=== PATIENT | male | born 1975 | race Caucasian/White ===

== ENCOUNTER → 2016-11-03 | Outpatient (CLI) | payer OTHER ==
[~2016-11-03] MED LIST: ASPI-390 PO; MELO7.5T5 PO; MORP30TA PO; RANI150T3 PO; SIMV40TA4 PO; [UNRECOGNIZED DRUG - CODE] PO
[2016-11-03 12:31] LABS: ESTIMATED AVERAGE GLUCOSE 123 mg/dl; HA1C FLAG Normal (Normal)
[2016-11-03 12:55] LABS: C-REACTIVE PROTEIN 0.41 mg/dl (0-0.29)
[2016-11-03 15:09] LABS: LYME DISEASE AB IGG NEG (NEG)
[2016-11-03 15:12] LABS: LYME DISEASE AB IGM EQUIVOCAL (NEG)
[2016-11-07 14:22] LABS: 18KDIGG BAND NONREACTIVE (NONREACTIVE); 23KDIGG BAND NONREACTIVE (NONREACTIVE); 23KDIGM BAND REACTIVE (NONREACTIVE); 28KDIGG BAND NONREACTIVE (NONREACTIVE); 30KDIGG BAND NONREACTIVE (NONREACTIVE); 39KDIGG BAND NONREACTIVE (NONREACTIVE); 39KDIGM BAND NONREACTIVE (NONREACTIVE); 41KDIGG BAND REACTIVE (NONREACTIVE); 41KDIGM BAND NONREACTIVE (NONREACTIVE); 45KDIGG BAND NONREACTIVE (NONREACTIVE); 58KDIGG BAND NONREACTIVE (NONREACTIVE); 66KDIGG BAND NONREACTIVE (NONREACTIVE); 93KDIGG BAND NONREACTIVE (NONREACTIVE)
[2016-11-07 15:31] LABS: ALBUMIN 4.5 G/DL (3.8-4.8); ANTI-CENTROMERE AB <1.0 NEG AI (<1.0 NEG); ANTI-SS-A <1.0 NEG AI (<1.0 NEG); ANTI-SS-B <1.0 NEG AI (<1.0 NEG); DNA ds CRITHIDIA NEGATIVE (NEGATIVE); GAMMA GLOBULIN 1.1 G/DL (0.8-1.7); MICROSOMAL AB 2 IU/ML (<9); Sm Antibody <1.0 NEG AI (<1.0 NEG); TOTAL PROTEIN 7.3 G/DL (6.2-8.3); VIT B1 PLASMA(THIAMIN)**90353 12 nmol/L (8-30); VITAMIN B6** TC 926 11.2 ng/mL (2.1-21.7)
== END | disposition home or self-care (01) ==
LOC: C.LAB 11:34
PROVIDERS: ATTEND Psychiatry & Neurology Neurology
DX: G62.9 Polyneuropathy, unspecified (principal)

== ENCOUNTER 2019-11-09 21:27 | Inpatient (IN) ==
[2019-11-09] MEDS ORDERED: HYDROmorphone INJ 1 MG/ML SYRINGE IV STA ×3 (21:43→23:29)
[2019-11-09] MEDS ORDERED: ONDANSETRON INJ 2 MG/ML 2 ML VIAL IV STA (21:43)
--- NOTE | 2019-11-09 21:47 | Emergency Department Note ---
History of Present Illness General Chief complaint: Neck Injury/Pain Stated complaint: NECK PAIN Time Seen by Provider: 11/09/19 21:35 History of Present Illness Maximum Pain Intensity: 10 This is a 44-year-old male that presents to the emergency department via private vehicle with complaints of "neck pain". Patient states he has been experiencing greater than 1 week now of left-sided neck pain that radiates down the left arm. He describes it as a burning sensation. He believes this is nerve in nature. He has been seen by the chiropractor several times and also here in the ED x1 and was informed this is likely cervical radiculopathy secondary to a bulging disc. Patient notes that since he was evaluated here he notes an increase in discomfort. He was seen by the PCP recently and started on Valium. He has not returned to work as of yet. He denies any other pertinent past medical history, surgeries or allergies. He states that if he extends the neck to a neutral position the pain is much worse and is slightly better when flexed forward. No reported trauma or injury. He does note decreased strength in the left upper extremity. Discomfort is a 10/10. No chest pain or shortness of breath. No fevers or chills. Home Medications Home Medications Medication Instructions Recorded Confirmed Type gabapentin 1,200 mg PO TID 11/06/19 11/09/19 History Medical Marijuana 0 unit .UD PRN 11/09/19 11/09/19 History diazepam 2 mg PO TID PRN 11/09/19 11/09/19 History ibuprofen 1,600 mg PO .TID/UD 11/09/19 11/09/19 History simvastatin 40 mg PO QPM 11/09/19 11/09/19 History Allergies Allergy/AdvReac Type Severity Reaction Status Date / Time metoprolol Allergy Mild RASH Verified 11/09/19 22:42 propoxyphene Allergy Mild ITCHY Verified 11/09/19 22:42 acetaminophen AdvReac Mild SICK TO Verified 11/09/19 22:42 STOMACH tramadol AdvReac Unknown headache Verified 11/09/19 22:42 prednisone AdvReac Chest Pain Verified 11/09/19 22:42 Past Med/Surg History Medical History Back pain, chronic Social History Smoking Status: Current every day smoker Preferred Language: Qatari Feels Safe at Home: Yes Review of Systems A total of 10 systems reviewed and were otherwise negative Physical Exam Vital Signs Vital Signs - 24 hr 11/09/19 21:28 11/09/19 22:46 11/10/19 00:45 Temperature 36.8 C Temperature Source Oral Pulse Rate 89 Pulse Rate [Finger] 73 72 Pulse Rhythm [Finger] Regular Pulse Strength [Finger] Normal Respiratory Rate 20 18 18 Respiratory Effort / Characteristics Non-Labored Spontaneous Non-Labored Spontaneous Respiratory Depth Normal Normal Respiratory Pattern Regular Blood Pressure 169/98 H Blood Pressure [Right Arm] 146/108 H 130/88 Blood Pressure Mean 121 Blood Pressure Mean [Right Arm] 120 102 Blood Pressure Position [Right Arm] Sitting Pulse Oximetry 97 96 95 Oxygen Delivery Method Room Air Room Air Room Air Sepsis Recent Fever Within 48 Hours No Sepsis New/Unexplained Change in Mental Status No Sepsis Action Taken by Nursing No Action Required 11/10/19 02:45 Temperature Temperature Source Pulse Rate Pulse Rate [Finger] 66 Pulse Rhythm [Finger] Regular Pulse Strength [Finger] Normal Respiratory Rate 18 Respiratory Effort / Characteristics Non-Labored Spontaneous Respiratory Depth Normal Respiratory Pattern Regular Blood Pressure Blood Pressure [Right Arm] 134/92 Blood Pressure Mean Blood Pressure Mean [Right Arm] 106 Blood Pressure Position [Right Arm] Sitting Pulse Oximetry 95 Oxygen Delivery Method Room Air Sepsis Recent Fever Within 48 Hours Sepsis New/Unexplained Change in Mental Status Sepsis Action Taken by Nursing VITAL SIGNS - Vital signs and nursing notes were reviewed. Stable and afebrile. GENERAL - 44-year-old male appearing his stated age who is in no acute distress. Communicates well with provider and answers questions appropriately. SKIN - Without rashes. No meningeal or petechial rash. HEAD - NC/AT. EYES - PERRL with EOMI bilaterally. Sclera anicteric. EARS - No deformities of external structures noted on gross examination bilaterally. No pain elicited with palpation of the tragus bilaterally. External auditory canals without discharge or otorrhea. Tympanic membranes pearly robison without retraction or bulging. No fluid or purulent material visualized behind the TM. Handle of malleus, umbo, cone of light, pars tensa/flaccid all easily visualized. NOSE - Midline and without cyanosis. No epistaxis or purulent drainage noted. Septum midline without deviation or septal hematoma noted. MOUTH/OROPHARYNX - Without perioral cyanosis. Buccal mucosa pink and moist and without leukoplakia. Tongue midline with equal elevation of palate bilaterally. NECK - Neck with decreased ROM as he is currently in a flexed position, with his head resting against the bed, while sitting beside the bed in a chair. Supple to palpation. No lymphadenopathy noted. No nuchal rigidity. No muscle spasm palpable. LUNGS - Chest wall symmetric without accessory muscle use, intercostals retracti ons, or central cyanosis. Normal vesicular breath sounds CTA B/L. No wheezes, rales, or rhonchi appreciated. CARDIAC - RRR with S1/S2. No murmur, rubs, or gallops appreciated. EXTREMITIES - No clubbing or peripheral cyanosis. No pretibial edema present. 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 Left radial pulse within normal limits. No tenderness palpation along the left upper extremity +5/5 strength noted in UE/LE bilaterally. NEUROLOGIC - Cranial nerves II through XII grossly intact. Sensory intact to light touch throughout. PSYCH - A&O, and cooperates fully with examiner. Pt is very pleasant and interacts well with examiner. Course Administered Medications Discontinued Medications Dexamethasone (Dexamethasone Sod Inj 10 Mg/Ml Vial) 10 mg IV NOW ONE Stop: 11/10/19 01:09 Last Admin: 11/10/19 01:17 Dose: 10 mg Documented by: [id number] Diphenhydramine HCl (Diphenhydramine Hcl 50 Mg/Ml Vial) 25 mg IV NOW STA Stop: 11/10/19 03:27 Last Admin: 11/10/19 03:40 Dose: 25 mg Documented by: [id number] Hydromorphone HCl (Hydromorphone Inj 1 Mg/Ml Syringe) 1 mg IV NOW STA Stop: 11/09/19 21:44 Last Admin: 11/09/19 21:57 Dose: 1 mg Documented by: [id number] Hydromorphone HCl (Hydromorphone Inj 1 Mg/Ml Syringe) 1 mg IV NOW STA Stop: 11/09/19 22:43 Last Admin: 11/09/19 22:46 Dose: 1 mg Documented by: [id number] Hydromorphone HCl (Hydromorphone Inj 1 Mg/Ml Syringe) 1 mg IV NOW STA Stop: 11/09/19 23:30 Last Admin: 11/09/19 23:33 Dose: 1 mg Documented by: [id number] Hydromorphone HCl (Hydromorphone Inj 1 Mg/Ml Syringe) 1 mg IV NOW STA Stop: 11/10/19 01:09 Last Admin: 11/10/19 01:17 Dose: 1 mg Documented by: [id number] Hydromorphone HCl (Hydromorphone Inj 0.5 Mg/0.5 Ml Syr) 0.25 mg IV NOW STA Stop: 11/10/19 03:29 Last Admin: 11/10/19 03:42 Dose: 0.25 mg Documented by: [id number] Hydromorphone HCl (Hydromorphone Inj 0.5 Mg/0.5 Ml Syr) Confirm Administered Dose 0.5 mg .ROUTE .ST-MED ONE Stop: 11/10/19 03:36 Last Admin: 11/10/19 03:42 Dose: Not Given Documented by: [id number] Ioversol (Optiray 320 125ml) 119 ml IV ONCE ONE Stop: 11/09/19 23:03 Last Admin: 11/09/19 23:02 Dose: 119 ml Documented by: [id number] Ketorolac Tromethamine (Ketorolac 30 Mg/Ml Vial) 30 mg IV NOW STA Stop: 11/09/19 21:58 Last Admin: 11/09/19 22:03 Dose: 30 mg Documented by: [id number] Ondansetron HCl (Ondansetron Inj 2 Mg/Ml 2 Ml Vial) 4 mg IV NOW STA Stop: 11/09/19 21:44 Last Admin: 11/09/19 21:57 Dose: 4 mg Documented by: [id number] Medical Decision Making Laboratory Data Result diagrams: 11/09/19 21:53 11/09/19 21:53 Lab Results 11/09/19 11/09/19 Range/Units 21:53 21:53 WBC 10.28 (4.8-10.8) K/uL RBC 5.13 (4.7-6.1) M/uL Hgb 15.8 (14.0-18.0) g/dL Hct 45.8 (42-52) % MCV 89.3 (80-100) fL MCH 30.8 (25-34) pg MCHC 34.5 (32-36) g/dL RDW Std Deviation 44.9 (36.4-46.3) fL RDW Coeff of Renaldo 13.6 (11.5-14.5) % Plt Count 217 (130-400) K/uL MPV 9.8 (7.4-10.4) fL Immature Gran % (Auto) 0.7 % Neut % (Auto) 69.0 % Lymph % (Auto) 23.1 % Calhoun % (Auto) 6.3 % Eos % (Auto) 0.6 % Baso % (Auto) 0.3 % Neut # (Auto) 7.10 H (1.4-6.5) K/uL Lymph # (Auto) 2.37 (1.2-3.4) K/uL Calhoun # (Auto) 0.65 H (0.11-0.59) K/uL Eos # (Auto) 0.06 (0-0.5) K/uL Baso # (Auto) 0.03 (0-0.2) K/uL Immature Gran # (Auto) 0.07 H (0.00-0.02) K/uL Sodium 138 (136-145) mmol/L Potassium 4.5 (3.5-5.1) mmol/L Chloride 106 (98-107) mmol/L Carbon Dioxide 26 (21-32) mmol/L Anion Gap 6.0 (3-11) BUN 15 (7-18) mg/dl Creatinine 1.11 (0.6-1.4) mg/dl Est Cr Clr Drug Dosing 108.4 ml/min Est GFR ( Amer) 92.5 Est GFR (Non-Af Amer) 79.8 BUN/Creatinine Ratio 13.7 (10-20) Glucose 135 H (70-99) mg/dl Calcium 9.2 (8.5-10.1) mg/dl Total Bilirubin 0.2 (0.2-1) mg/dl AST 14 L (15-37) U/L ALT 24 (12-78) U/L Alkaline Phosphatase 65 (45-117) U/L Total Protein 7.5 (6.4-8.2) gm/dl Albumin 4.2 (3.4-5.0) gm/dl Globulin 3.3 (2.5-4.0) gm/dl Albumin/Globulin Ratio 1.3 (0.9-2) Imaging Data Radiologist's Impression: CT HEAD: No acute intracranial findings. Radiologist: Jeramie Biggs MD Study ready at 23:05 and initial results transmitted at 23:10 CTA HEAD: Negative. No evidence of aneurysm, stenosis or occlusion. Radiologist: Jeramie Biggs MD Study ready at 23:05 and initial results transmitted at 23:13 CTA NECK: Negative. No evidence of occlusion, stenosis or dissection. Radiologist: Jeramie Biggs MD Study ready at 23:05 and initial results transmitted at 23:11 MRI C SPINE : C6-C7 large left paracentral/subarticular disc extrusion, abutting and possibly compressing the left C7 nerve roots. Moderate left C6-C7 foraminal stenosis. Radiologist: González Siegel MD Study ready at 00:59 and initial results transmitted at 01:48 [facility] Narrative Patient was seen and evaluated as above in room A02. Review was performed of nursing notes and vital signs. I did review pertinent previous visits and patient history. After obtaining a thorough history and physical examination the above work up was performed. He presents to us today with atraumatic neck pain. Vital signs stable. The patient upon my entrance into the examination room has his head resting on the bed and is sitting in a chair beside the bed. He cannot raise the head secondary to pain in the left side of the neck. On exam there is no palpable muscle spasm and his presentation is likely that of cervical radiculopathy. IV access was established. Labs were drawn. No leukocytosis or anemia. No emergent metabolic disturbance. The patient was medicated with IV Toradol, IV Zofran and IV Dilaudid. A CTA was obtained of the head and neck with results as above. These are essentially negative. These were obtained first given the patient's presentation to rule out any emergent dissection or other arterial process. He was then sent to the MRI scanner and was found to have a C6-C7 large left paracentral/subarticular disc extrusion, abutting and possibly compressing the left C7 nerve roots. Moderate left C6-C7 foraminal stenosis. This fits with his clinical presentation. The patient has previously seen [facility] spine specialists for his back but never for his neck. With this, I found it reasonable to reach out to the spine surgeon covering for that group. I spoke to Dr. Yeh. We agreed upon steroids, admission to the hospital, and he will see the patient later today. I believe this is reasonable and the patient is very happy with this plan. Case discussed with the hospitalist, please refer to further documentation regarding his stay. Case was discussed with the attending physician. In the evaluation and treatment of this patient the following differential diagnoses were entertained: Fracture, dislocation, subluxation, contusion, dissection, neurovascular compromise, tumor, herniated disc, among others. Impression & Plan Cervical herniated disc, Cervical radiculopathy Discharge Plan Visit Data Chief Complaint: Neck Injury/Pain Stated Complaint: NECK PAIN ED Provider: Wayne Holt ED Midlevel Provider: Natan Hendricks Discharge Problem: Cervical herniated disc, Cervical radiculopathy Patient Disposition: Admitted As Inpatient Condition: Good Forms Stand Alone Forms: My [facility] [employer] Prescriptions Prescriptions: No Action gabapentin 600 mg tablet 1,200 mg PO TID RF: 0 simvastatin 40 mg tablet 40 mg PO QPM RF: 0 ibuprofen 800 mg tablet 1,600 mg PO .TID/UD RF: 0 diazepam 2 mg Tablet 2 mg PO TID PRN (Reason: Pain) RF: 0 Medical Marijuana 0 unit .UD PRN (Reason: Pain) RF: 0 Referrals Referrals: Blaze Lee [Primary Care Provider] -
[2019-11-09] MEDS ORDERED: KETOROLAC 30 MG/ML VIAL IV STA (21:57)
[2019-11-09 22:00] LABS: Basophils # (auto) 0.03 K/uL (0-0.2); Basophils % (auto) 0.3 %; Eosinophils # (auto) 0.06 K/uL (0-0.5); Eosinophils % (auto) 0.6 %; Hematocrit (blood only) 45.8 % (42-52); Hemoglobin 15.8 g/dL (14.0-18.0); Immature Granulocytes # (auto) 0.07 K/uL (0.00-0.02); Immature Granulocytes % (auto) 0.7 %; Lymphocytes # (auto) 2.37 K/uL (1.2-3.4); Lymphocytes % (auto) 23.1 %; Mean Corpuscular Hemoglobin 30.8 pg (25-34); Mean Corpuscular Hgb Conc 34.5 g/dL (32-36); Mean Corpuscular Volume 89.3 fL (80-100); Mean Platelet Volume 9.8 fL (7.4-10.4); Monocytes # (auto) 0.65 K/uL (0.11-0.59); Monocytes % (auto) 6.3 %; Platelet Count 217 K/uL (130-400); RDW Coefficient of Variation 13.6 % (11.5-14.5); RDW Standard Deviation 44.9 fL (36.4-46.3); Red Blood Count 5.13 M/uL (4.7-6.1); White Blood Count 10.28 K/uL (4.8-10.8)
[2019-11-09 22:21] LABS: Albumin Level 4.2 gm/dl (3.4-5.0); BUN Creatinine Ratio 13.7 (10-20); Calcium 9.2 mg/dl (8.5-10.1); Creatinine Clr Calc Pharmacy 108.4 ml/min; Est GFR (African American) 92.5; Est GFR (Non-African American) 79.8; Potassium 4.5 mmol/L (3.5-5.1)
[2019-11-09 22:41] LABS: Albumin Globulin Ratio 1.3 (0.9-2); Bilirubin,Total 0.2 mg/dl (0.2-1); Globulin 3.3 gm/dl (2.5-4.0); Total Protein 7.5 gm/dl (6.4-8.2)
[2019-11-09] MEDS ORDERED: OPTIRAY 320 125ml IV ONE (23:02)
[2019-11-10] MEDS ORDERED: HYDROmorphone INJ 1 MG/ML SYRINGE IV STA (01:08)
[2019-11-10] MEDS ORDERED: DEXAMETHASONE SOD INJ 10 MG/ML VIAL IV ONE (01:08)
--- NOTE | 2019-11-10 03:18 | History & Physical Report ---
Date of Service November 10, 2019 Assessment & Plan (1) Cervical radiculopathy: Manuel Apodaca is a 44-year-old male who presents with progressive worsening neck pain with left greater than right arm and leg weakness and decreased sensation with evidence of a C6/C7 herniated disc and foraminal stenosis on ER evaluation. Cervical herniation and radiculopathy Patient with upper and lower extremity radiculopathy, notable asymmetric weakness of the left hand likely due to disc herniation and nerve root compression as noted below. MRIC-spine shows C6-C7 large left paracentral/subarticular disc extrusion, abutting and possibly compressing the left C7 nerve roots. Moderate left C6/C7 foraminal stenosis. CT head with no acute findings Neck CTA shows no evidence of vascular occlusion, stenosis, or dissection Patient required hydromorphone 1 mg x 4 doses, Toradol 30 mg, and dexamethasone 10 mg IV for pain control due to severe pain in the emergency department Admit to telemetry Pain control: Toradol every 6 hours, Decadron 6 mg IV twice daily, Benadryl 25 mg every 4 hours, breakthrough hydromorphone 0.5-1 mg every 2 hours as needed Patient required high doses of narcotics on admission due to extreme pain, is alert without respiratory depression at time of evaluation. Monitor for narcosis, Narcan available. - Case discussed with ortho. Dr. Yeh consulted and will see in [facility]. Pt NPO in anticipation of surgical intervention. Chronic back pain Patient endorses chronic low back pain, suspect his exacerbation of symptoms is due to the cervical level changes as above Hyperlipidemia Continue simvastatin 40 mg nightly No electrolyte derangements on admission FEN GI: N.p.o., NSS+KCl 120 cc/h DVT prophylaxis: SCDs, hold pharmacal prophylaxis in setting of anticipated surgery Disposition: Telemetry CODE STATUS: Full code (2) Torticollis: (3) Back pain: (4) Cervical herniated disc: History of Present Illness Chief Complaint: Neck pain, weakness Primary Care Provider: Blaze Lee Manuel Apodaca is a 44-year-old male who presents with progressive worsening neck pain with left greater than right arm and leg weakness and decreased sensation. Patient reports that he was seen in the ED on 11/05 when he woke up Thursday with increased severe left-sided pain in the neck and shoulder. He has had some chronic mild weakness in his left hand which he thought was due to carpal tunnel. He has also had neuropathy, which he qualifies as [id number] and decreased sensation in his hands and legs, left worse than the right side, with no history of diabetes. He feels the symptoms suddenly worsened 4 days ago after returning home from work. 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 He reports he presented to the emergency department because his neck pain became so severe/10 out of 10 he could not wait to be seen. He notes that any movements of the neck worsen his pain, and that the back of his neck has become sore and sensitive to the touch. He denies chest pain, chest pressure, shortness of breath, difficulty breathing, syncope, presyncope. He has not had any bowel or bladder incontinence or retention. Medical history: Reviewed Surgical history: Reviewed Medications: Reviewed Allergies: Reviewed. Social: 1 pack/day cigarette use for "many years ", would like a patch during admission. Denies alcohol use. No street drug use. Dors is medical marijuana use for which he has a card, uses both vaporized and flour/edible formulations. CODE STATUS: Full code Allergies Allergy/AdvReac Type Severity Reaction Status Date / Time metoprolol Allergy Mild RASH Verified 11/09/19 22:42 propoxyphene Allergy Mild ITCHY Verified 11/09/19 22:42 acetaminophen AdvReac Mild SICK TO Verified 11/09/19 22:42 STOMACH tramadol AdvReac Unknown headache Verified 11/09/19 22:42 prednisone AdvReac Chest Pain Verified 11/09/19 22:42 Home Medications Home Medications Medication Instructions Recorded Confirmed Type gabapentin 1,200 mg PO TID 11/06/19 11/09/19 History Medical Marijuana 0 unit .UD PRN 11/09/19 11/09/19 History diazepam 2 mg PO TID PRN 11/09/19 11/09/19 History ibuprofen 1,600 mg PO .TID/UD 11/09/19 11/09/19 History simvastatin 40 mg PO QPM 11/09/19 11/09/19 History oxycodone 5 mg PO Q6H PRN #10 tab 11/10/19 Rx Past Med/Surg History Medical History Back pain, chronic Social History Smoking Status: Current every day smoker Second Hand Exposure: Yes; Do You Dip or Chew Tobacco: No; Tobacco Cessation Education Requested by Patient: No Hx Alcohol Use: No Hx Substance Use: Yes Last Used Substance: Hours (ago) Preferred Language: Beninese Communication Ability: Effective Fishing 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 Appears in pain. Cooperative. HEENT: Atraumatic, normocephalic. Pulm: CTAB A&P. -wheezes, -rales, -rhonchi. Symmetrical chest rise. No increase work of breathing. No respiratory distress. Cardiac: RRR, -mrg. Radial pulses intact and symmetrical. Abdominal: Nontender, nondistended, soft. BS present. MSK: Increased paraspinal muscle tone bilaterally at the cervical levels, patient endorses tenderness to palpation and inability to rotate or laterally bend his neck due to induction of pain. CN II: Visual taveras are full to confrontation. Pupils are equal and react to light and accomidation. Visual acuity grossly intact. CN III, IV, : At primary gaze, there is no eye deviation. EoM intact without nystagmus. No visual field cuts. CN V: Facial sensation is intact to soft touch in all 3 divisions bilaterally. CN VII: No facial asymmetry, full strength to eyebrow raise, smile, eye close, and cheek puff. CN VII: Hearing is grossly intact. CN IX, X: Palate elevates symmetrically. Phonation is normal without dysarthria. CN XI: Head turning limited as noted above. CN XII: Tongue protrudes midline. Sensory: Sensation to light touch diminished in the fingertips and feet bilaterally, more diminished on the left compared to the right. Sensation to sharp touch also diminished, but less so than soft touch. Equal sensation across the first through fifth digits on the hand and feet bilaterally. 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 Assessment and Plan: C6-7 left paracentral/subarticular disc extrusion/L6-7 moderate foraminal stenosis/left C7 nerve root compression- Has some signs of neuropathic injury left lower extremity, which may be associated with history of lumbar spine disease, or possibly related to acute cervical injury. N.p.o. after midnight Given Decadron 10 mg IV in ED will continue 6 mg IV every 6 hours Dilaudid 1 mg IV every 4 hours as needed severe pain Toradol 30 mg IV every 6 hours Zofran 4 mg IV every 6 hours PRN Famotidine 20 mg IV every [address] Yeh orthopedic spine surgery Remaining orders and notations as noted Resident Activity Tracking Resident Involvement: Resident Care Provided Care Provided: Adult Hospital Medicine
[2019-11-10] MEDS ORDERED: DiphenhydrAMINE HCL 50 MG/ML VIAL IV STA (03:26)
[2019-11-10] MEDS ORDERED: HYDROmorphone INJ 0.5 MG/0.5 ML SYR IV STA (03:28)
[2019-11-10] MEDS ORDERED: HYDROmorphone INJ 0.5 MG/0.5 ML SYR ONE (03:35)
[2019-11-10] MEDS ORDERED: NALOXONE HCL 0.4 MG/1 ML VIAL/CARP IV PRN ×2 (04:53→16:50)
[2019-11-10] MEDS ORDERED: DiphenhydrAMINE HCL 50 MG/ML VIAL IV PRN (04:53)
[2019-11-10] MEDS ORDERED: HYDROmorphone INJ 0.5 MG/0.5 ML SYR IV PRN (04:53)
[2019-11-10] MEDS ORDERED: KETOROLAC TROMETHAMINE 15 MG/ML VIAL IV PRN (04:53)
[2019-11-10] MEDS: HYDROmorphone INJ 1 MG/ML SYRINGE IV PRN ×3 (05:10→10:09)
[2019-11-10] MEDS: NSS + 20MEQ KCL 20 MEQ/1,000 ML BAG IV SCH ×2 (05:30→16:53)
--- NOTE | 2019-11-10 06:57 | CT Scan Report ---
CT angio neck with con CLINICAL HISTORY: Left-sided neck pain radiating to the arm. Possible dissection. COMPARISON STUDY: No previous studies for comparison. TECHNIQUE: CT angiography was performed from the aortic arch to the skull base. MIP imaging was perfo rmed. The patient was scanned in a dynamic helical fashion during intravenous administration of 119 c c of Optiray 320. A dose lowering technique was utilized adhering to the principles of ALARA. CT DOSE: Technique: CT angiogram of the carotid and vertebral arteries was obtained using intravenous contrast and 3-D reconstruction. NASCET criteria was utilized. Findings: The right carotid revealed no evidence of aneurysm and no evidence of dissection. There is no evidenc e of hemodynamic significant stenosis. The left carotid revealed no evidence of hemodynamic significant stenosis. There is no evidence of an eurysm. There is no evidence of dissection. There is no evidence of hemodynamically significant vertebral stenosis. There is no evidence of verte bral dissection. IMPRESSION: No evidence of hemodynamically significant carotid or vertebral artery stenosis. No evidence of disse ction. ACT 112: Negative or not required by law. Electronically signed by: Agapito Anton M.D. 11/10/2019 6:56 AM
--- NOTE | 2019-11-10 07:04 | Magnetic Resonance Report ---
MR cervical spine wo con CLINICAL HISTORY: Neck pain left arm radiculopathy. TECHNIQUE: Sagittal and axial T1, T2 and STIR images were obtained. COMPARISON STUDY: No previous studies for comparison. Study is limited from a technical standpoint. Multiple sequences were repeated for motion artifact. There are no suspicious areas of marrow replacement. No intrinsic cervical cord lesions are visualize d. There is a reversal the normal cervical lordosis. C2-3: There is no evidence of disc bulge or focal herniation. There is no spinal or foraminal stenosi s. C3-4: There is no evidence of disc bulge or focal herniation. There is no spinal or foraminal stenosi s. C4-5: There are no disc bulges or focal herniations. There is no spinal or foraminal stenosis. C5-6 :There are no disc bulges or focal herniations. There is no spinal or foraminal stenosis. C6-7: There is a large left posterior disc extrusion with significant deformity of the thecal sac and mild cord deformity. There is left-sided foraminal narrowing. C7-T1: There is no evidence of disc bulge or focal herniation. There is no evidence of spinal or fora chris stenosis. IMPRESSION: 1. Large left posterior parasagittal disc extrusion at the C6-7 level with secondary mild cord deform ity, probable impingement on the left C7 nerve root, and left C6-7 foraminal narrowing ACT 112: Negative or not required by law. Electronically signed by: Agapito Anton M.D. 11/10/2019 7:03 AM
--- NOTE | 2019-11-10 07:31 | CT Scan Report ---
CT angio head wo/w CT DOSE: 1325.17 mGy.cm CLINICAL HISTORY: Head and neck pain with left arm pain TECHNIQUE: Unenhanced images were obtained through the brain. CT angiography was then performed a [facility] helical fashion during intravenous administration of 119 cc of Optiray 320. MIP images were acqu ired. A dose lowering technique was utilized adhering to the principles of ALARA. COMPARISON STUDY: None. FINDINGS: On the noncontrast study, no intra or extra-axial mass lesions are visualized. There is no CT evidenc e of acute cortical infarction. There is no evidence of midline shift. There is no evidence of acute hemorrhage. There is no hydrocephalus. No calvarial fractures are visualized. There are no pathologically enhancing masses on the postcontrast study. CT angiographic images reveal no evidence of aneurysm. There are no major intracranial branch occlusi ons. There is no evidence of major intracranial stenosis. The dural venous sinuses appear patent. IMPRESSION: Normal study. ACT 112: Negative or not required by law. Electronically signed by: Agapito Anton M.D. 11/10/2019 7:30 AM
[2019-11-10] MEDS: NICOTINE 21 MG/24 HR TDSY TD SCH (07:46)
--- NOTE | 2019-11-10 08:53 | Orthopedic Consultation ---
Date of Consultation November 10, 2019 Assessment & Plan (1) Cervical herniated disc: This time the patient has profound neuro deficits and severe discomfort failing medical management. Recommending emergent anterior cervical discectomy and fusion of C6-C7 to remove the disc herniation off of the cord and exiting nerve root in order to provide some pain relief and hopefully in time improvement of his strength deficits. Risk benefits pros cons and alternatives were outlined in detail. Risk include but not limited to anesthesia blindness stroke paralysis nerve damage blood loss requiring transfusion infection requiring reoperation dysphonia and dysphasia. Benefits hopefully mar ked improvement in his symptom complex. He is n.p.o. at this time we will plan for surgery later today. Present on Admission?: Yes History of Present Illness Reason for Consultation: Patient presents with severe neck and left arm pain for approximately a week. It radiates in the left intrascapular region down his arm and into his fingers. He is right-hand dominant. 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 He has been in the emergency room twice secondary to severe pain. Steroids and muscle relaxers as well as pain medication have little to no effect. 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 Right upper extremity is relatively asymptomatic. Attending Physician: Valentín Mcleod MD Allergies Allergy/AdvReac Type Severity Reaction Status Date / Time metoprolol Allergy Mild RASH Verified 11/09/19 22:42 propoxyphene Allergy Mild ITCHY Verified 11/09/19 22:42 acetaminophen AdvReac Mild SICK TO Verified 11/09/19 22:42 STOMACH tramadol AdvReac Unknown headache Verified 11/09/19 22:42 prednisone AdvReac Chest Pain Verified 11/09/19 22:42 Home Medications Home Medications Medication Instructions Recorded Confirmed Type gabapentin 1,200 mg PO TID 11/06/19 11/09/19 History Medical Marijuana 0 unit .UD PRN 11/09/19 11/09/19 History diazepam 2 mg PO TID PRN 11/09/19 11/09/19 History ibuprofen 1,600 mg PO .TID/UD 11/09/19 11/09/19 History simvastatin 40 mg PO QPM 11/09/19 11/09/19 History Patient History Medical History Back pain, chronic Social History Smoking Status: Current every day smoker Second Hand Exposure: Yes; Do You Dip or Chew Tobacco: No; Tobacco Cessation Education Requested by Patient: No Hx Alcohol Use: No Hx Substance Use: Yes Last Used Substance: Hours (ago) Preferred Language: Samoan Communication Ability: Effective Health Education Director Required: No Beliefs That Will Affect Care: None Current Living Situation: Spouse and Family Other Information That Helps Us Care for You: No Feels Safe at Home: Yes Safety Concerns: Feels Safe At This Time Physical Exam Physical Exam: On exam patient is obvious distress. He is unable to rotate his head to the left to any degree without marked increase in his pain. He has a clear Spurling's to the left negative to the right. No Lhermitte's phenomenon. He demonstrates a 3+ grasp to the left hand and tricep bicep is a breakaway weakness at a 4+/5. Deltoids intact. Excellent strength detailed testing right upper extremity. He has allodynia and sensory deficits to the left upper extremity compared to the right. Results & Data ([facility]) Vital Signs (Past 12 Hours) Vital Signs Temp Pulse Pulse Resp BP BP Pulse Ox 11/10/19 07:24 36.5 C 66 18 125/70 93 11/10/19 04:53 60 11/10/19 04:52 36.9 C 57 L 20 160/88 H 95 11/10/19 02:45 66 18 134/92 95 11/10/19 00:45 72 18 130/88 95 11/09/19 22:46 73 18 146/108 H 96 11/09/19 21:28 36.8 C 89 20 169/98 H 97 Pulse Ox 11/10/19 07:24 11/10/19 04:53 95 11/10/19 04:52 11/10/19 02:45 11/10/19 00:45 11/09/19 22:46 11/09/19 21:28
--- NOTE | 2019-11-10 09:34 | Hospitalist Progress Note ---
Date of Service November 10, 2019 Assessment & Plan (1) Cervical radiculopathy: Manuel Apodaca is a 44-year-old male who presents with progressive worsening neck pain with left greater than right arm and leg weakness and decreased sensation with evidence of a C6/C7 herniated disc and foraminal stenosis on ER evaluation. Cervical herniation and radiculopathy Patient with upper and lower extremity radiculopathy, notable asymmetric weakness of the left hand likely due to disc herniation and nerve root compression as noted below. MRIC-spine shows C6-C7 large left paracentral/subarticular disc extrusion, abutting and possibly compressing the left C7 nerve roots. Moderate left C6/C7 foraminal stenosis. CT head with no acute findings Neck CTA shows no evidence of vascular occlusion, stenosis, or dissection Patient required hydromorphone 1 mg x 4 doses, Toradol 30 mg, and dexamethasone 10 mg IV for pain control due to severe pain in the emergency department Admit to telemetry Pain control: Toradol every 6 hours, Decadron 6 mg IV twice daily, Benadryl 25 mg every 4 hours, breakthrough hydromorphone 0.5-1 mg every 2 hours as needed Patient required high doses of narcotics on admission due to extreme pain, is alert without respiratory depression at time of evaluation. Monitor for narcosis, Narcan available. - Case discussed with ortho. Dr. Yeh consulted and will see in APO. Pt NPO in anticipation of surgical intervention. Chronic back pain Patient endorses chronic low back pain, suspect his exacerbation of symptoms is due to the cervical level changes as above Hyperlipidemia Continue simvastatin 40 mg nightly No electrolyte derangements on admission FEN GI: N.p.o., NSS+KCl 120 cc/h DVT prophylaxis: SCDs, hold pharmacal prophylaxis in setting of anticipated surgery Disposition: Telemetry CODE STATUS: Full code (2) Torticollis: (3) Back pain: (4) Cervical herniated disc: Admission and Anticipated Discharge Date Admission Date: November 10, 2019 Results & Data Results & Data ([facility]) Vital Signs (Past 12 Hours) Vital Signs Temp Pulse Pulse Resp BP Pulse Ox Pulse Ox 11/10/19 07:24 36.5 C 66 18 125/70 93 11/10/19 04:53 60 95 11/10/19 04:52 36.9 C 57 L 20 160/88 H 95 11/10/19 02:45 66 18 134/92 95 11/10/19 00:45 72 18 130/88 95 11/09/19 22:46 73 18 146/108 H 96
[2019-11-10] MEDS: GABAPENTIN 600 MG TAB PO SCH ×3 (10:05→21:03)
--- NOTE | 2019-11-10 10:50 | Hospitalist Progress Note ---
Date of Service November 10, 2019 Assessment & Plan (1) Cervical radiculopathy: Manuel Apodaac is a 44-year-old male who presents with progressive worsening neck pain with left greater than right arm and leg weakness and decreased sensation with evidence of a C6/C7 herniated disc and foraminal stenosis on ER evaluation. Cervical herniation and radiculopathy Patient with upper and lower extremity radiculopathy, notable asymmetric weakness of the left hand likely due to disc herniation and nerve root compression as noted below. MRIC-spine shows C6-C7 large left paracentral/subarticular disc extrusion, abutting and possibly compressing the left C7 nerve roots. Moderate left C6/C7 foraminal stenosis. CT head with no acute findings, Neck CTA shows no evidence of vascular occlusion, stenosis, or dissection - 10 mg IV decadron in ED for pain/swelling control Pain control: Toradol every 6 hours, Decadron 6 mg IV twice daily, Benadryl 25 mg every 4 hours, breakthrough hydromorphone 0.5-1 mg every 2 hours as needed Patient required high doses of narcotics on admission due to extreme pain, is alert without respiratory depression at time of evaluation. Monitor for narcosis, Narcan available. - Anterior cervical discectomy and fusion with Dr. Yeh today - transfer to med/surg postop Chronic back pain Patient endorses chronic low back pain, suspect his exacerbation of symptoms is due to the cervical level changes as above Hyperlipidemia Continue simvastatin 40 mg nightly No electrolyte derangements on admission FEN GI: regular diet, NSS+KCl 120 cc/h DVT prophylaxis: SCDs, hold pharmacal prophylaxis postop Disposition: [facility] CODE STATUS: Full code (2) Torticollis: (3) Back pain: (4) Cervical herniated disc: Admission and Anticipated Discharge Date Admission Date: November 10, 2019 Supervising Physician Co-Signing Physician Notes I personally examined the patient and verified all la points of history and exam, discussed case, and agree with decision making with Dr Weston. seen preop - bad arm pain, weakness vitals noted nad heent nc at mmm holding arm without much movement severe cervical radiculopathy - failing conservative treatment. for OR today. otherwise as above Subjective 44 yo M admitted for cervical disc protrusion. Still in significant amount of pain this morning pre-surgery. attests that his left hand is weak, but he is able to actively move it and use it. some tingling and numbness at fingertips. no loss of bowel or bladder, no weakness of legs bilaterally. Review of Systems Constitutional: + body aches and + weakness; no fever and no sweats Respiratory: no cough and no pain on inspiration Cardiovascular: no chest pain, no dyspnea on exertion and no palpitations Gastrointestinal: no abdominal pain, no nausea, no vomiting and no diarrhea/loose stools Musculoskeletal: + neck pain, + radicular pain and + limited range of motion; no back pain Neurologic: + localized weakness, + tingling and + numbness; no paralysis, no loss of sensation, no tremor(s), no dizziness and no headache(s) Physical Exam Physical Exam: Const: laying on right side visibly uncomfortable and sleepy in bed Card: RRR, no MRG Pulm: CTA BL, no wheezes rhonchi, rales Neuro: strength 4/5 L <R upper extremity Results & Data Results & Data ([facility]) Vital Signs (Past 12 Hours) Vital Signs Temp Pulse Pulse Resp BP Pulse Ox Pulse Ox 11/10/19 07:24 36.5 C 66 18 125/70 93 11/10/19 04:53 60 95 11/10/19 04:52 36.9 C 57 L 20 160/88 H 95 11/10/19 02:45 66 18 134/92 95 11/10/19 00:45 72 18 130/88 95 Laboratory Results WBC 10.28 K/uL (4.8-10.8) 11/09/19 21:53 RBC 5.13 M/uL (4.7-6.1) 11/09/19 21:53 Hgb 15.8 g/dL (14.0-18.0) 11/09/19 21:53 Hct 45.8 % (42-52) 11/09/19 21:53 MCV 89.3 fL (80-100) 11/09/19 21:53 MCH 30.8 pg (25-34) 11/09/19 21:53 MCHC 34.5 g/dL (32-36) 11/09/19 21:53 RDW Std Deviation 44.9 fL (36.4-46.3) 11/09/19 21:53 RDW Coeff of Renaldo 13.6 % (11.5-14.5) 11/09/19 21:53 Plt Count 217 K/uL (130-400) 11/09/19 21:53 MPV 9.8 fL (7.4-10.4) 11/09/19 21:53 Immature Gran % (Auto) 0.7 % 11/09/19 21:53 Neut % (Auto) 69.0 % 11/09/19 21:53 Lymph % (Auto) 23.1 % 11/09/19 21:53 [place] % (Auto) 6.3 % 11/09/19 21:53 Eos % (Auto) 0.6 % 11/09/19 21:53 Baso % (Auto) 0.3 % 11/09/19 21:53 Neut # (Auto) 7.10 K/uL (1.4-6.5) H 11/09/19 21:53 Lymph # (Auto) 2.37 K/uL (1.2-3.4) 11/09/19 21:53 [place] # (Auto) 0.65 K/uL (0.11-0.59) H 11/09/19 21:53 Eos # (Auto) 0.06 K/uL (0-0.5) 11/09/19 21:53 Baso # (Auto) 0.03 K/uL (0-0.2) 11/09/19 21:53 Immature Gran # (Auto) 0.07 K/uL (0.00-0.02) H 11/09/19 21:53 Sodium 138 mmol/L (136-145) 11/09/19 21:53 Potassium 4.5 mmol/L (3.5-5.1) 11/09/19 21:53 Chloride 106 mmol/L (98-107) 11/09/19 21:53 Carbon Dioxide 26 mmol/L (21-32) 11/09/19 21:53 Anion Gap 6.0 (3-11) 11/09/19 21:53 BUN 15 mg/dl (7-18) 11/09/19 21:53 Creatinine 1.11 mg/dl (0.6-1.4) 11/09/19 21:53 Est Cr Clr Drug Dosing 108.4 ml/min 11/09/19 21:53 Est GFR ( Amer) 92.5 11/09/19 21:53 Est GFR (Non-Af Amer) 79.8 11/09/19 21:53 BUN/Creatinine Ratio 13.7 (10-20) 11/09/19 21:53 Glucose 135 mg/dl (70-99) H 11/09/19 21:53 Calcium 9.2 mg/dl (8.5-10.1) 11/09/19 21:53 Total Bilirubin 0.2 mg/dl (0.2-1) 11/09/19 21:53 AST 14 U/L (15-37) L 11/09/19 21:53 ALT 24 U/L (12-78) 11/09/19 21:53 Alkaline Phosphatase 65 U/L (45-117) 11/09/19 21:53 Total Protein 7.5 gm/dl (6.4-8.2) 11/09/19 21:53 Albumin 4.2 gm/dl (3.4-5.0) 11/09/19 21:53 Globulin 3.3 gm/dl (2.5-4.0) 11/09/19 21:53 Albumin/Globulin Ratio 1.3 (0.9-2) 11/09/19 21:53 COVID-19 Eval Order Covid19 IDNow atMA[facility]C 11/10/19 11:00 SARS-CoV-2, RNA, NAAT NEGATIVE (NEGATIVE) 11/10/19 11:00 Resident Activity Tracking Resident Involvement: Resident Care Provided Care Provided: Adult [facility] Medicine
[2019-11-10] MEDS ORDERED: SUCCINYLCHOLINE CHLORIDE 20 MG/ML 10 ML VIAL IV ONE (11:43)
[2019-11-10] MEDS ORDERED: ROCURONIUM BROMIDE 10 MG/ML 5 ML VIAL IV ONE ×2 (11:43→13:39)
[2019-11-10] MEDS ORDERED: PROPOFOL IV EMULSION 10 MG/ML 20 ML VIAL IV ONE ×4 (11:43→13:36)
[2019-11-10] MEDS ORDERED: DEXAMETHASONE SOD INJ 4 MG/ML VIAL ONE (11:43)
[2019-11-10] MEDS ORDERED: HYDROmorphone INJ 2 MG/ML SYR/VIAL ONE (11:43)
[2019-11-10] MEDS ORDERED: NEOSTIGMINE METHYLSULFATE 5 MG/5 ML SYR ONE (11:43)
[2019-11-10] MEDS ORDERED: MIDAZOLAM HCL 1 MG/ML 2ML VIAL ONE (11:43)
[2019-11-10] MEDS ORDERED: ONDANSETRON INJ 2 MG/ML 2 ML VIAL ONE (11:43)
[2019-11-10] MEDS ORDERED: GLYCOPYRROLATE 0.2 MG/ML VIAL ONE (11:43)
[2019-11-10] MEDS ORDERED: LIDOCAINE HCL 2% 2 ML VIAL/AMP(20MG/ML) INFIL ONE (11:43)
[2019-11-10] MEDS: DEXAMETHASONE SOD PHOSPHATE 6 MG in SYRINGE 0 ML IV SCH ×3 (12:01→21:03)
--- NOTE | 2019-11-10 12:47 | Anesthesiology Consultation ---
Date of Service November 10, 2019 Assessment & Plan ASA ASA3 Proposed Anesthesia Anesthesia Type: General Risk / Benefits Reviewed With: PT / POA / Parent / Guardian, Accepts Plan and Informed Consent Obtained History Surgery Operation Date: 11/10/19 12:20 Proposed Procedures p C6-C7 Anterior Cervical Discectomy and Fusion - Idris Yeh DO Height/Weight Height: 6 ft 1 in Weight: 108.3 kg Allergies Allergy/AdvReac Type Severity Reaction Status Date / Time metoprolol Allergy Mild RASH Verified 11/09/19 22:42 propoxyphene Allergy Mild ITCHY Verified 11/09/19 22:42 acetaminophen AdvReac Mild SICK TO Verified 11/09/19 22:42 STOMACH tramadol AdvReac Unknown headache Verified 11/09/19 22:42 prednisone AdvReac Chest Pain Verified 11/09/19 22:42 Medications Home Medications Medication Instructions Recorded Confirmed Last Taken gabapentin 1,200 mg PO TID 11/06/19 11/09/19 11/06/19 Medical Marijuana 0 unit .UD PRN 11/09/19 11/09/19 Unknown diazepam 2 mg PO TID PRN 11/09/19 11/09/19 Unknown ibuprofen 1,600 mg PO .TID/UD 11/09/19 11/09/19 Unknown simvastatin 40 mg PO QPM 11/09/19 11/09/19 Unknown Active Medications Generic Name Dose Route Start Last Admin Trade Name Freq PRN Reason Stop Dose Admin Gabapentin 1,200 mg 11/10/19 09:00 11/10/19 10:05 Gabapentin 600 Mg Tab PO 12/10/19 08:59 1,200 mg TID SEGUNDO Administration Hydromorphone HCl 1 mg 11/10/19 04:53 11/10/19 10:09 Hydromorphone Inj 1 Mg/Ml Syringe IV 11/24/19 04:52 1 mg Q2H PRN Administration Severe Pain (7,8,9,10) on NRS Dexamethasone Sodium Phosphate 1.5 mls @ 1 mls/min 11/10/19 12:00 11/10/19 12:01 6 mg/ Syringe IV 12/10/19 11:59 1 mls/min BID SEGUNDO Administration Potassium Chloride/Sodium Chloride 20 meq in 1,000 mls @ 120 mls/hr 11/10/19 04:53 11/10/19 05:30 Normal Saline W/20 Meq Kcl IV 12/10/19 04:52 120 mls/hr .Q8H20M SEGUNDO Administration Nicotine 21 mg 11/10/19 09:00 11/10/19 07:46 Nicotine 21 Mg/24 Hr Tdsy TD 12/10/19 08:59 21 mg QAM SEGUNDO Administration Past Medical History Medical History Back pain, chronic Exercise / Class Metabolic Activity II 4-5 Yardwork/Stairs/Walk up hill Past Anesthesia History No Hx of Anesthesia Complications and No Family Hx of Anesthesia Complications History of PONV No Hx of PONV and No Hx of Motion Sickness Social History Smoking Status: Current every day smoker tobacco type: cigarettes Do You Dip or Chew Tobacco: No Hx Alcohol Use: No Hx Substance Use: Yes substance use type: marijuana Last Used Substance: Hours (ago) Review of Systems denies fever/cough/ colds/ chest pain/ SOB/ IVETT Constitutional: no fever and no chills Respiratory: no cough and no dyspnea denies IVETT Cardiovascular: no chest pain and no dyspnea on exertion Physical Exam Vital Signs Last Vital Signs Temp 36.5 C 11/10/19 11:38 Pulse 72 11/10/19 11:38 Resp 18 11/10/19 11:38 BP 143/81 H 11/10/19 11:38 Pulse Ox 94 11/10/19 11:38 ENMT Mouth: + poor dentition; no TMJ abnormality and no dentition abnormality Thyromental Distance: > or= 3.5 Finger Breadths Mallampati Class: II Neck neck extension not limited Respiratory normal respiratory effort; no respiratory distress Auscultation: lungs clear to auscultation bilaterally Cardiovascular Rate/Rhythm: regular rate and regular rhythm Neurologic moves all extremities Psychiatric Orientation: alert and oriented x 3 Testing Laboratory Results 11/09/19 21:53 11/09/19 21:53
[2019-11-10] MEDS ORDERED: ATROPINE SULFATE 0.1 MG/ML 10ML SYR IV PRN (12:48)
[2019-11-10] MEDS ORDERED: fentaNYL citrate 100 MCG/2 ML VIAL IV PRN (12:48)
[2019-11-10] MEDS ORDERED: ePHEDrine sulfate 50 MG/ML AMP IV PRN (12:48)
[2019-11-10] MEDS ORDERED: ONDANSETRON INJ 2 MG/ML 2 ML VIAL IV PRN ×2 (12:48→16:50)
[2019-11-10] MEDS ORDERED: HYDROmorphone INJ 2 MG/ML SYR/VIAL IV PRN (12:48)
[2019-11-10] MEDS ORDERED: PROMETHAZINE HCL 12.5 MG in SODIUM CHLORIDE 0.9% 50 ML IV PRN ×2 (12:48→16:50)
[2019-11-10] MEDS ORDERED: CEFAZOLIN 2000MG 2,000 MG/15 ML SYR IV ONE (13:00)
[2019-11-10] MEDS ORDERED: BACITRACIN INJ 50,000 UNIT VIAL ONE (13:01)
[2019-11-10] MEDS ORDERED: CEFAZOLIN 2,000 MG/15 ML IV PUSH IV ONE (13:05)
[2019-11-10] MEDS ORDERED: FLOSEAL HEMOSTATIC MATRIX 10ML TOP ONE (14:19)
--- NOTE | 2019-11-10 14:38 | Operative Report ---
Post Operative Report Pre & Post Diagnosis Operation Date: 11/10/19 12:20 Pre-Op Diagnosis: C6-C7 Disc Herniation Post-Op Diagnosis: C6-C7 Disc Herniation I identified the patient and participated in the time-out.: Yes Procedure Operation Date: 11/10/19 12:20 Actual Procedures #1 anterior cervical discectomy with bilateral foraminotomies C6-C7. #2 an terior cervical arthrodesis C6-C7. #3 placement of 9 mm Spira cage filled with DBM at C6-7. #4 application of 5 complete and screws across C6-C7. Surgeon Idris Yeh, DO [place] None Estimated Blood Loss 50 Findings Consistent with Post-Op Diagnosis Specimens None Indications This is a 44-year-old male who presents with significant left arm pain and weakness. He subsequently underwent emergent anterior cervical discectomy and fusion. Description of Procedure Patient was met with identified informed consent obtained. Patient was then taken to the operative suite underwent an patient placed in supine position. Anterior cervical spine was then prepped and draped in a sterile fashion. The assistance of fluoroscopy identified the C6-C7 level a transverse incision was placed along the right anterior spine. Sharp dissection with assistance of bipolar electrocautery was performed down to and exposing the anterior cervical spine at C6-C7. Self-retaining retractors placed. Then performed a complete discectomy of C6-C7 to the uncovertebral joints bilaterally. [place] distracting pins were utilized to assist in visualization. I removed all posterior annular fibers identified a massive disc herniation occupying the left lateral recess. It was removed in its entirety. The endplates were then burred to subcortical being bone and a 9 mm Spira cage filled DBM tapped in position. Distracting apparatus was removed and a shields plate and screws applied with the assistance of fluoroscopy. Incision was then copiously irrigated explored to ensure no damage to surrounding structures remaining bleeding. 10 round LISETH drain inserted. The incision was then closed with 2 Vicryl in a fashion of 4 Monocryl for final skin closure. Steri-Strip sterile dressings placed. Patient waken taken to PACU stable condition. Please note spinal cord monitoring was utilized that the procedure no changes noted. I attest to the content of the Intraoperative Record and any orders documented therein. Any exceptions are noted below.
--- NOTE | 2019-11-10 15:06 | Fluoroscopy Report ---
FL cervical 2-3V CLINICAL HISTORY: C6-C7 ACDF. COMPARISON STUDY: None. FLUOROSCOPY TIME: 12 seconds. FINDINGS: 2 fluoroscopic spot images of the cervical spine demonstrate anterior cervical discectomy a nd fusion at C6-C7. The hardware appears intact. IMPRESSION: Fluoroscopy provided for C6-C7 ACDF ACT 112: Negative or not required by law. Electronically signed by: Krish Munoz M.D. 11/10/2019 3:04 PM
--- NOTE | 2019-11-10 15:51 | Anesthesiology Progress Note ---
Date of Service November 10, 2019 Anesthesia Post Procedure Vital Signs Vital Signs: Temp Pulse Pulse Pulse Resp BP BP 11/10/19 15:40 78 14 117/85 11/10/19 15:30 78 12 116/89 11/10/19 15:20 77 13 132/85 11/10/19 15:10 77 11 L 115/84 11/10/19 15:00 79 12 108/72 11/10/19 14:51 36.2 C L 83 14 123/75 11/10/19 12:53 36.6 C 73 20 11/10/19 11:38 36.5 C 72 18 11/10/19 08:25 50 L 11/10/19 07:24 36.5 C 66 18 11/10/19 04:53 60 11/10/19 04:52 36.9 C 57 L 20 11/10/19 02:45 66 18 11/10/19 00:45 72 18 11/09/19 22:46 73 18 11/09/19 21:28 36.8 C 89 20 169/98 H BP Pulse Ox Pulse Ox 11/10/19 15:40 92 11/10/19 15:30 94 11/10/19 15:20 95 11/10/19 15:10 96 11/10/19 15:00 97 11/10/19 14:51 96 11/10/19 12:53 148/85 H 92 11/10/19 11:38 143/81 H 94 11/10/19 08:25 11/10/19 07:24 125/70 93 11/10/19 04:53 95 11/10/19 04:52 160/88 H 95 11/10/19 02:45 134/92 95 11/10/19 00:45 130/88 95 11/09/19 22:46 146/108 H 96 11/09/19 21:28 97 Pain Intensity Left Neck: Pain Intensity: 2 Transfer of Care Handoff Completed per policy Notes Mental Status: alert / awake / arousable Patient Amnestic to Procedure: Yes Nausea / Vomiting: adequately controlled Pain: adequately controlled Airway Patency, RR, SpO2: stable & adequate BP & HR: stable & adequate Hydration State: stable & adequate Anesthetic Complications: no major complications apparent and Pt Satisfied with anesthetic care
[2019-11-10] MEDS ORDERED: ALUMINUM/MAGNESIUM SUSP 30 ML UDC PO PRN (16:50)
[2019-11-10] MEDS ORDERED: ACETAMINOPHEN 500 MG TAB PO PRN (16:50)
[2019-11-10] MEDS ORDERED: FAMOTIDINE 20 MG TAB PO PRN (16:50)
[2019-11-10] MEDS ORDERED: HYDROmorphone INJ 1 MG/ML SYRINGE IV PRN (16:50)
[2019-11-10] MEDS ORDERED: MAGNESIUM HYDROXIDE SUSP 30 ML UDC PO PRN (16:50)
[2019-11-10] MEDS ORDERED: RACEPINEPHRINE 2.25% NEBU SOLN 0.5 ML VIAL INH PRN (16:50)
[2019-11-10] MEDS ORDERED: ACETAMINOPHEN 1,000 MG/100 ML VIAL IV PRN (16:50)
[2019-11-10] MEDS ORDERED: METOCLOPRAMIDE HCL INJ 5 MG/ML 2 ML VIAL IV PRN (16:50)
[2019-11-10] MEDS ORDERED: DO NOT ADMINISTER PNEUMOCOCCAL VACCINE PRN (16:50)
[2019-11-10] MEDS ORDERED: SOD PHOSPHATE/SOD BIPHOSPHATE ENEMA 132 ML BTL PR PRN (16:50)
[2019-11-10] MEDS ORDERED: DO NOT ADMINISTER FLU VACCINE PRN (16:50)
[2019-11-10] MEDS ORDERED: LORazepam 0.5 MG/1 ML VIAL IV PRN (16:50)
[2019-11-10] MEDS ORDERED: ONDANSETRON 4 MG OD TAB PO PRN (16:50)
[2019-11-10] MEDS ORDERED: DEXAMETHASONE SOD PHOSPHATE 8 MG in SYRINGE 0 ML IV PRN (16:50)
[2019-11-10] MEDS: LACTATED RINGER'S 1,000 ML IV SCH (17:44)
--- NOTE | 2019-11-10 18:04 | Billing Data ---
Date of Service November 10, 2019 Coding Level of Care Code 86770 Subseq Hosp Care Lvl 2
[2019-11-10] MEDS: CEFAZOLIN 2000MG 2,000 MG/15 ML SYR IV SCH (19:58)
[2019-11-10] MEDS: OXYCODONE HCL IR 5 MG TAB (IMMEDIATE RELEASE) PO PRN (20:14)
[2019-11-10] MEDS: SIMVASTATIN 40 MG TAB PO SCH (21:03)
[2019-11-10] MEDS: HYDROmorphone INJ 0.5 MG/0.5 ML SYR IV PRN (21:07)
[2019-11-10] MEDS: DOCUSATE SODIUM/SENNA 50/8.6MG TAB PO SCH (21:07)
--- NOTE | 2019-11-10 21:31 | Billing Data ---
Date of Service November 10, 2019 Coding Level of Care Code 72478 Initial Inpt Care Lvl 3
[2019-11-11] MEDS: HYDROmorphone INJ 0.5 MG/0.5 ML SYR IV PRN ×2 (00:21→03:21)
[2019-11-11] MEDS: LACTATED RINGER'S 1,000 ML IV SCH ×2 (02:37→16:00)
[2019-11-11] MEDS: CEFAZOLIN 2000MG 2,000 MG/15 ML SYR IV SCH (03:22)
[2019-11-11] MEDS: DEXAMETHASONE SOD PHOSPHATE 6 MG in SYRINGE 0 ML IV SCH ×3 (03:22→15:34)
[2019-11-11] MEDS: OXYCODONE HCL IR 5 MG TAB (IMMEDIATE RELEASE) PO PRN ×2 (05:24→21:17)
[2019-11-11] MEDS: NICOTINE 21 MG/24 HR TDSY TD SCH (08:04)
[2019-11-11] MEDS: GABAPENTIN 600 MG TAB PO SCH ×3 (08:04→20:57)
--- NOTE | 2019-11-11 08:25 | Anesthesiology Progress Note ---
Date of Service November 11, 2019 Anesthesia Post Procedure Vital Signs Vital Signs: Temp Pulse Pulse Pulse Resp BP BP 11/11/19 08:00 36.4 C L 78 18 152/87 H 11/11/19 07:35 97 H 17 11/11/19 06:47 68 16 154/82 H 11/11/19 06:33 36.6 C 52 L 16 164/94 H 11/11/19 05:29 36.5 C 82 16 163/99 H 11/11/19 04:13 36.3 C L 52 L 16 143/75 H 11/11/19 03:38 67 20 11/11/19 03:14 36.3 C L 77 18 154/91 H 11/11/19 01:33 36.5 C 81 16 145/77 H 11/10/19 23:40 36.5 C 64 64 18 148/83 H 11/10/19 23:36 77 18 11/10/19 21:40 36.5 C 64 64 18 136/74 11/10/19 19:54 97 H 16 11/10/19 19:40 36.5 C 69 18 134/78 11/10/19 17:40 91 H 14 151/95 H 11/10/19 17:12 36.7 C 76 14 143/86 H 11/10/19 16:40 36.7 C 68 14 144/89 H 11/10/19 16:30 62 13 135/73 11/10/19 16:15 67 12 122/89 11/10/19 16:00 36.1 C L 63 13 145/86 H 11/10/19 15:50 68 15 139/86 11/10/19 15:40 78 14 117/85 11/10/19 15:30 78 12 116/89 11/10/19 15:20 77 13 132/85 11/10/19 15:10 77 11 L 115/84 11/10/19 15:00 79 12 108/72 11/10/19 14:51 36.2 C L 83 14 123/75 11/10/19 12:53 36.6 C 73 20 148/85 H 11/10/19 11:38 36.5 C 72 18 143/81 H 11/10/19 08:25 50 L Pulse Ox Pulse Ox 11/11/19 08:00 91 11/11/19 07:35 92 11/11/19 06:47 93 11/11/19 06:33 93 11/11/19 05:29 94 11/11/19 04:13 93 11/11/19 03:38 92 11/11/19 03:14 93 11/11/19 01:33 94 11/10/19 23:40 94 11/10/19 23:36 96 11/10/19 21:40 94 11/10/19 19:54 92 11/10/19 19:40 93 97 11/10/19 17:40 94 11/10/19 17:12 94 11/10/19 16:40 94 11/10/19 16:30 93 11/10/19 16:15 95 11/10/19 16:00 97 11/10/19 15:50 95 11/10/19 15:40 92 11/10/19 15:30 94 11/10/19 15:20 95 11/10/19 15:10 96 11/10/19 15:00 97 11/10/19 14:51 96 11/10/19 12:53 92 11/10/19 11:38 94 11/10/19 08:25 Notes Mental Status: alert / awake / arousable Patient Amnestic to Procedure: Yes Nausea / Vomiting: adequately controlled Pain: adequately controlled Airway Patency, RR, SpO2: stable & adequate BP & HR: stable & adequate Hydration State: stable & adequate Anesthetic Complications: no major complications apparent and Pt Satisfied with anesthetic care
--- NOTE | 2019-11-11 10:04 | Orthopedic Progress Note ---
Date of Service November 11, 2019 Assessment & Plan (1) Hematoma: Admission and Anticipated Discharge Date Admission Date: November 10, 2019 Patient appears to be developing a hematoma at the surgical site. I am subsequently going to recommend evacuation hematoma today as soon as possible and reinsertion of drain. Subjective Patient's arm symptoms are markedly improved. He is noting difficulty swallowing and some gurgling with breathing. Physical Exam Physical Exam: On exam his strength is improved to the left upper extremity. He does have some swelling and evidence of hematoma under the incision site. The drain does not appear to be functioning. Results & Data ([facility]) Vital Signs (Past 12 Hours) Vital Signs Temp Pulse Pulse Resp BP BP Pulse Ox 11/11/19 09:44 36.9 C 98 H 19 161/97 H 93 11/11/19 08:00 36.4 C L 78 18 152/87 H 91 11/11/19 07:35 97 H 17 92 11/11/19 06:47 68 16 154/82 H 93 11/11/19 06:33 36.6 C 52 L 16 164/94 H 93 11/11/19 05:29 36.5 C 82 16 163/99 H 94 11/11/19 04:13 36.3 C L 52 L 16 143/75 H 93 11/11/19 03:38 67 20 92 11/11/19 03:14 36.3 C L 77 18 154/91 H 93 11/11/19 01:33 36.5 C 81 16 145/77 H 94 11/10/19 23:40 36.5 C 64 64 18 148/83 H 94 11/10/19 23:36 77 18 96
[2019-11-11] MEDS ORDERED: PROPOFOL IV EMULSION 10 MG/ML 20 ML VIAL IV ONE (11:18)
[2019-11-11] MEDS ORDERED: LIDOCAINE HCL 2% 2 ML VIAL/AMP(20MG/ML) INFIL ONE (11:18)
[2019-11-11] MEDS ORDERED: SUCCINYLCHOLINE CHLORIDE 20 MG/ML 10 ML VIAL IV ONE (11:18)
[2019-11-11] MEDS ORDERED: MIDAZOLAM HCL 1 MG/ML 2ML VIAL ONE (11:18)
[2019-11-11] MEDS ORDERED: fentaNYL citrate 100 MCG/2 ML VIAL ONE ×2 (11:19→12:08)
--- NOTE | 2019-11-11 11:21 | Anesthesiology Consultation ---
Date of Service November 11, 2019 The patient underwent cervical neck surgery yesterday. Today he has had some swelling in his neck and trouble breathing. He is currently able to talk and SpO2 is 94 on a nonrebreather. He was intubated with a Glidescope #4 yesterday. Assessment & Plan (1) Encounter for pre-operative examination: Chart Review Chart Review: Acceptable Risk for Surgery (emergency surgery) and Patient NOT seen in Pre Admission Testing Consults Requested none History Surgery Operation Date: 11/10/19 12:20 Proposed Procedures p C6-C7 Anterior Cervical Discectomy and Fusion - Idris eYh DO Operation Date: 11/11/19 14:45 Proposed Procedures p Evacuation of Cervical Spine Hematoma - Idris Yeh DO Height/Weight Height: 6 ft 1 in Weight: 108.3 kg Allergies Allergy/AdvReac Type Severity Reaction Status Date / Time metoprolol Allergy Mild RASH Verified 11/09/19 22:42 propoxyphene Allergy Mild ITCHY Verified 11/09/19 22:42 acetaminophen AdvReac Mild SICK TO Verified 11/09/19 22:42 STOMACH tramadol AdvReac Unknown headache Verified 11/09/19 22:42 prednisone AdvReac Chest Pain Verified 11/09/19 22:42 Medications Home Medications Medication Instructions Recorded Confirmed Last Taken gabapentin 1,200 mg PO TID 11/06/19 11/09/19 11/06/19 Medical Marijuana 0 unit .UD PRN 11/09/19 11/09/19 Unknown diazepam 2 mg PO TID PRN 11/09/19 11/09/19 Unknown ibuprofen 1,600 mg PO .TID/UD 11/09/19 11/09/19 Unknown simvastatin 40 mg PO QPM 11/09/19 11/09/19 Unknown oxycodone 5 mg PO Q6H PRN #10 tab 11/10/19 Unknown Active Medications Generic Name Dose Route Start Last Admin Trade Name Freq PRN Reason Stop Dose Admin Gabapentin 1,200 mg 11/10/19 09:00 11/11/19 08:04 Gabapentin 600 Mg Tab PO 12/10/19 08:59 1,200 mg TID SEGUNDO Administration Hydromorphone HCl 1 mg 11/10/19 04:53 11/10/19 10:09 Hydromorphone Inj 1 Mg/Ml Syringe IV 09/03/20 04:52 1 mg Q2H PRN Administration Severe Pain (7,8,9,10) on NRS Hydromorphone HCl 0.5 mg 11/10/19 16:50 11/11/19 03:21 Hydromorphone Inj 0.5 Mg/0.5 Ml Syr IV 11/24/19 16:49 0.5 mg Q3H PRN Administration MOD pain (scale 4-6) & Pre PT Hydromorphone HCl 1 mg 11/10/19 16:50 11/11/19 09:50 Hydromorphone Inj 1 Mg/Ml Syringe IV 11/24/19 16:49 1 mg Q3H PRN Administration severe pain (scale 7-10) Dexamethasone Sodium Phosphate 1.5 mls @ 1 mls/min 11/10/19 12:00 11/11/19 08:04 6 mg/ Syringe IV 12/10/19 11:59 1 mls/min BID SEGUNDO Administration Dexamethasone Sodium Phosphate 1.5 mls @ 1 mls/min 11/10/19 20:00 11/11/19 03:22 6 mg/ Syringe IV 11/11/19 12:02 1 mls/min Q8H SEGUNDO Administration Lactated Ringer's 1,000 mls @ 100 mls/hr 11/10/19 16:50 11/11/19 02:37 Lr IV 12/10/19 16:49 100 mls/hr .Q10H SEGUNDO Administration Miscellaneous 1 ea 11/11/19 08:59 11/11/19 08:04 Remove Nicoderm Patch N/A 12/11/19 08:58 1 ea [id number] SEGUNDO Administration Nicotine 21 mg 11/10/19 09:00 11/11/19 08:04 Nicotine 21 Mg/24 Hr Tdsy TD 12/10/19 08:59 21 mg QAM SEGUNDO Administration Oxycodone HCl 5 - 10 mg 11/10/19 16:50 11/11/19 05:24 Oxycodone Hcl Ir 5 Mg Tab (Immediate Release) PO 11/24/19 16:49 10 mg Q4H PRN Administration Pain & Pre PT Senna/Docusate Sodium 2 tab 11/10/19 21:00 11/10/19 21:07 Docusate Sodium/Senna 50/8.6mg Tab PO 12/10/19 20:59 2 tab HS SEGUNDO Administration Simvastatin 40 mg 11/10/19 21:00 11/10/19 21:03 Simvastatin 40 Mg Tab PO 12/10/19 20:59 40 mg QPM SEGUNDO Administration NPO Date Last Intake of Fluids: 11/11/19 Time Last Intake of Fluids: 08:30 Date Last Intake of Solids: 11/11/19 Time Last Intake of Solids: 09:30 Past Medical History Medical History Back pain, chronic Dyslipidemia Medical marijuana use Sleep apnea Smoker Social History Smoking Status: Current every day smoker tobacco type: cigarettes Do You Dip or Chew Tobacco: No Hx Alcohol Use: No Hx Substance Use: Yes substance use type: marijuana Last Used Substance: Hours (ago) Physical Exam Vital Signs Last Vital Signs Temp 36.9 C 11/11/19 09:44 Pulse 98 H 11/11/19 09:44 Resp 19 11/11/19 09:44 BP 161/97 H 11/11/19 09:44 Pulse Ox 93 11/11/19 09:44 Testing Laboratory Results 11/09/19 21:53 11/09/19 21:53
[2019-11-11] MEDS ORDERED: ePHEDrine sulfate 50 MG/ML AMP IV PRN (11:30)
[2019-11-11] MEDS ORDERED: MEPERIDINE HCL 25 MG/ML CARP/VIAL IV PRN (11:30)
[2019-11-11] MEDS ORDERED: HYDROmorphone INJ 1 MG/ML SYRINGE IV PRN (11:30)
[2019-11-11] MEDS ORDERED: ONDANSETRON INJ 2 MG/ML 2 ML VIAL IV PRN (11:30)
[2019-11-11] MEDS ORDERED: PHENYLEPHRINE 100MCG/ML 5ML SYR IV PRN (11:30)
[2019-11-11] MEDS ORDERED: fentaNYL citrate 100 MCG/2 ML VIAL IV PRN (11:30)
[2019-11-11] MEDS ORDERED: LABETALOL HCL IV 5 MG/ML 20ML IV PRN (11:30)
[2019-11-11] MEDS ORDERED: ATROPINE SULFATE 0.1 MG/ML 10ML SYR IV PRN (11:30)
[2019-11-11] MEDS ORDERED: THROMBIN FOR SOLN 20000 UNIT KIT ONE (11:40)
[2019-11-11] MEDS ORDERED: GELATIN SPONGE 12-7MM ONE (11:40)
[2019-11-11] MEDS ORDERED: BACITRACIN INJ 50,000 UNIT VIAL ONE (11:41)
[2019-11-11] MEDS ORDERED: ESMOLOL HCL INJ 10 MG/ML 10ML VIAL IV ONE (11:42)
[2019-11-11] MEDS ORDERED: CEFAZOLIN 250 MG/ML 1 GM VIAL ONE (11:55)
[2019-11-11] MEDS ORDERED: DexMEDEtomidine HCL IV 100 MCG/ML VIAL ONE (12:35)
--- NOTE | 2019-11-11 12:58 | Operative Report ---
Post Operative Report Pre & Post Diagnosis Operation Date: 11/10/19 12:20 Pre-Op Diagnosis: C6-C7 Disc Herniation Post-Op Diagnosis: C6-C7 Disc Herniation Operation Date: 11/11/19 14:45 Pre-Op Diagnosis: Cervical Hematoma Post-Op Diagnosis: Cervical Hematoma I identified the patient and participated in the time-out.: Yes Procedure Operation Date: 11/10/19 12:20 Actual Procedures p C6-C7 Anterior Cervical Discectomy and Fusion(Not Applicable) - Idris Yeh DO Operation Date: 11/11/19 14:45 Actual Procedures Evacuation of cervical hematoma Surgeon Idris Yeh, Process Validation Engineer None Estimated Blood Loss 50 Findings Consistent with Post-Op Diagnosis Specimens None Indications Patient is status post ACDF C6-7. On rounds this morning he difficulty breathing and evidence of significant swelling in the anterior cervical spine underneath the incision. Subsequently underwent emergent evacuation of hematoma. Description of Procedure Patient was emergently taken to the operative suite underwent intubation and placed in a supine position the [place] table the head [place] head orthopedic team physician. The anterior cervical spine was prepped and draped in a sterile fashion. I then opened the previous incision site release the platysma and noted massive amounts of hematoma in the anterior cervical space and prevertebral space. Several liters of normal saline with bacitracin was then irrigated to assist in removing all clots. The area was explored several times but no acute bleeding was identified. I then placed a 15 round LISETH drain and closed the incision with subcutaneous Vicryl and 4 Monocryl for final skin closure. Steri-Strip sterile dressings placed. Patient awakened taken to PACU stable condition. I attest to the content of the Intraoperative Record and any orders documented therein. Any exceptions are noted below.
--- NOTE | 2019-11-11 13:19 | Medical Student Progress Note ---
Date of Service November 11, 2019 Assessment & Plan (1) Cervical radiculopathy: Mr. Apodcaa is a 44 yo M with a PMH of HLD and IVETT admitted for severe neck pain and arm weakness due to severe C6-C7 disc protrusion requiring Anterior Cervical Discectomy and Fusion. 1) New Oxygen Requirement - post-extubation noted to have increasing oxygenation needs, stabilized at 91% SpO2 on 40L HFNC - transferred to ICU for close monitoring in case he requires escalation of airway protection with intubation - hx smoking since age 13, at most 3 packs per day, has recently come down to 1 ppd. Last cigarette 11/08 - pulmonary toilet: flutter valve, Duonebs Q4H, incentive spirometry, azithromycin daily for anti-inflammatory benefit, - 8 mg IV Decadron Q8H for laryngeal swelling - racemic epinephrine 2.25% 0.5ml inh prn for stridor 2) post op c6-c7 discectomy and fusion - required emergent removal of hematoma forming around incision today - primary post-surgical management by Dr. Yeh - pain control scheduled: dexamethasone 6mg IV BID gabapentin 1200mg PO TID phenergan 12.5mg iv q6h prn for breakthrough pain: diphenhydramine 25mg IV q4h prn acetaminophen 1000mg PO q8h prn pain 1-3, pre-pt acetaminophen 1000mg in 100ml IV q8h 400ml/hr prn pain 1-3, pre-pt hydromorphone 0.5mg IV q2h prn moderate pain 4-6 hydromorphone 0.5mg IV q3h prn moderate pain 4-6, pre-pt hydromorphone 1mg IV q2h prn severe pain 7-10 hydromorphone 1mg IV q3h prn severe pain 7-10 toradol 15mg iv q6h prn oxycodone 5-10mg po q4h prn for pain, pre-pt narcosis: naloxone 0.4mg IV one prn naloxone 0.1mg iv q5m prn 3)dyspepsia: aluminum/magnesium 30ml po q6h prn famotidine 20mg po q12h prn 4)constipation: dulcolax 10mg pr QD prn senna 2tab po HS tab mag hydroxide 30ml po q24h prn miralax 17gm po q6h sod phorph 132ml pr one prn enema 5)sedation/anxiety: lorazepam 0.5ml in 1ml IV q8h 1ml/min prn lorazepam 0.5mg po q8h prn diphenhydramine 25mg po q6h prn hydroxyzine 25mg po q8h prn 6)n/v: metoclopromide 10mg iv q6h prn ondansetron 4mg iv q6h prn ondansetron 4mg po q6h prn fluids: LR IV q10h 100ml/hr 7) HLD continue simvastatin DVT ppx: SCDs FEN/GI: LR @100ml/hr, NPO Full Code Dispo: ICU Admission and Anticipated Discharge Date Admission Date: November 10, 2019 Supervising Attestation I personally examined the patient and verified all la points of history and exam, discussed case, and agree with decision making with P Im MS3. breathing doing much better. wants to quit smoking now vitals noted nad heent nc at mmm breathing unlabored down to oxymask from hiflow no conversational dyspnea acute hypoxic respiratory failure -main ddx would be airway compromise from hematoma or lower lung pathology - exam at worst done by dr aranda R2 most c/w lung pathology - treated w steroids and nebs - now doing much better -smoke cessation -PFTs in ~1-2 months as outpt otherwise as above Subjective Mr. Apodaca is POD 1 c6-c7 discectomy and fusion. His pain has improved, improved strength and function of left upper extremity. Has some throat soreness and pain on swallowing. Does not endorse any more numbness or tingling radiating down left arm into hand. Does not endorse any f/c, no c/p, no SOB. Review of Systems Review of Systems: All systems reviewed & are unremarkable except as noted in Subjective Respiratory: + pain on inspiration Cardiovascular: no chest pain Gastrointestinal: + pain with swallowing Physical Exam Physical Exam: const: NAD MSK: full ROM of abduction of left arm, fingertip sensation full and equal bilaterally, tobacco wrapping machine tender strength 5/5 bilat, finger extension and flexion 5/5 bilat Neurologic: normal touch/pain/proprioception and moves all extremities Results & Data ([facility] [place]) Vital Signs (Past 12 Hours) Vital Signs Temp Pulse Resp BP BP Pulse Ox 08/21/20 11:23 94 H 24 159/95 H 95 11/11/19 09:44 36.9 C 98 H 19 161/97 H 93 11/11/19 08:00 36.4 C L 78 18 152/87 H 91 11/11/19 07:35 97 H 17 92 11/11/19 06:47 68 16 154/82 H 93 11/11/19 06:33 36.6 C 52 L 16 164/94 H 93 11/11/19 05:29 36.5 C 82 16 163/99 H 94 11/11/19 04:13 36.3 C L 52 L 16 143/75 H 93 11/11/19 03:38 67 20 92 11/11/19 03:14 36.3 C L 77 18 154/91 H 93 11/11/19 01:33 36.5 C 81 16 145/77 H 94 Laboratory Results WBC 17.11 K/uL (4.8-10.8) H 11/11/19 15:26 RBC 4.52 M/uL (4.7-6.1) L 11/11/19 15:26 Hgb 14.0 g/dL (14.0-18.0) 11/11/19 15:26 Hct 40.5 % (42-52) L 11/11/19 15:26 MCV 89.6 fL (80-100) 11/11/19 15:26 MCH 31.0 pg (25-34) 11/11/19 15: MCHC 34.6 g/dL (32-36) 11/11/19 15:26 RDW Std Deviation 44.8 fL (36.4-46.3) 11/11/19 15:26 RDW Coeff of Renaldo 13.6 % (11.5-14.5) 11/11/19 15:26 Plt Count 200 K/uL (130-400) 11/11/19 15:26 MPV 10.1 fL (7.4-10.4) 11/11/19 15:26 Immature Gran % (Auto) 0.5 % 11/11/19 15:26 Neut % (Auto) 89.2 % 11/11/19 15:26 Lymph % (Auto) 6.5 % 11/11/19 15:26 [place] % (Auto) 3.7 % 11/11/19 15:26 Eos % (Auto) 0.0 % 11/11/19 15:26 Baso % (Auto) 0.1 % 11/11/19 15:26 Neut # (Auto) 15.25 K/uL (1.4-6.5) H 11/11/19 15:26 Lymph # (Auto) 1.12 K/uL (1.2-3.4) L 11/11/19 15:26 [place] # (Auto) 0.64 K/uL (0.11-0.59) H 11/11/19 15:26 Eos # (Auto) 0.00 K/uL (0-0.5) 11/11/19 15:26 Baso # (Auto) 0.01 K/uL (0-0.2) 11/11/19 15:26 Immature Gran # (Auto) 0.09 K/uL (0.00-0.02) H 11/11/19 15:26 PT 10.8 Seconds (9.0-12.0) 11/11/19 15:26 INR 1.0 (0.9-1.1) 11/11/19 15:26 Sodium 138 mmol/L (136-145) 11/09/19 21:53 Potassium 4.5 mmol/L (3.5-5.1) 11/09/19 21:53 Chloride 106 mmol/L (98-107) 11/09/19 21:53 Carbon Dioxide 26 mmol/L (21-32) 11/09/19 21:53 Anion Gap 6.0 (3-11) 11/09/19 21:53 BUN 15 mg/dl (7-18) 11/09/19 21:53 Creatinine 1.11 mg/dl (0.6-1.4) 11/09/19 21:53 Est Cr Clr Drug Dosing 108.4 ml/min 11/09/19 21:53 Est GFR ( Amer) 92.5 11/09/19 21:53 Est GFR (Non-Af Amer) 79.8 11/09/19 21:53 BUN/Creatinine Ratio 13.7 (10-20) 11/09/19 21:53 Glucose 135 mg/dl (70-99) H 11/09/19 21:53 Calcium 9.2 mg/dl (8.5-10.1) 11/09/19 21:53 Total Bilirubin 0.2 mg/dl (0.2-1) 11/09/19 21:53 AST 14 U/L (15-37) L 11/09/19 21:53 ALT 24 U/L (12-78) 11/09/19 21:53 Alkaline Phosphatase 65 U/L (45-117) 11/09/19 21:53 Total Protein 7.5 gm/dl (6.4-8.2) 11/09/19 21:53 Albumin 4.2 gm/dl (3.4-5.0) 11/09/19 21:53 Globulin 3.3 gm/dl (2.5-4.0) 11/09/19 21:53 Albumin/Globulin Ratio 1.3 (0.9-2) 11/09/19 21:53 COVID-19 Eval Order Covid19 [facility]Now [facility] 11/10/19 11:00 SARS-CoV-2, RNA, NAAT NEGATIVE (NEGATIVE) 11/10/19 11:00
[2019-11-11] MEDS ORDERED: ALBUT/IPRATROP 3MG/0.5MG NEB 3 ML VIAL NEB STA (13:54)
--- NOTE | 2019-11-11 14:42 | Electrocardiogram Report ---
Test Reason : Blood Pressure : / mmHG Vent. Rate : 078 BPM Atrial Rate : 078 BPM P-R Int : 144 ms QRS Dur : 106 ms QT Int : 378 ms P-R-T Axes : 059 055 063 degrees QTc Int : 430 ms Poor data quality, interpretation may be adversely affected Sinus rhythm with marked sinus arrhythmia Borderline ECG When compared with ECG of 13-SEP-2014 15:44, No significant change was found Confirmed by Al Hernandez [id number]) on 11/11/2019 2:42:00 PM Referred By: REFERRED SELF Confirmed By:Al Hernandez
--- NOTE | 2019-11-11 15:06 | Anesthesiology Progress Note ---
Date of Service November 11, 2019 Anesthesia Post Procedure Vital Signs Vital Signs: Temp Pulse Pulse Resp BP BP Pulse Ox 11/11/19 14:55 36.3 C L 75 14 116/80 94 11/11/19 14:45 76 18 127/86 90 11/11/19 14:35 73 18 115/76 94 11/11/19 14:25 76 17 112/73 93 11/11/19 14:24 70 20 91 11/11/19 14:15 71 15 101/69 91 11/11/19 14:05 73 14 104/65 87 L 11/11/19 13:55 66 15 106/77 90 11/11/19 13:45 59 L 14 98/57 L 93 11/11/19 13:35 59 L 13 91/58 L 95 11/11/19 13:25 58 L 14 96/58 L 94 11/11/19 13:15 36.3 C L 58 L 14 85/56 L 97 11/11/19 11:23 94 H 24 159/95 H 95 11/11/19 09:44 36.9 C 98 H 19 161/97 H 93 11/11/19 08:00 36.4 C L 78 18 152/87 H 91 11/11/19 07:35 97 H 17 92 11/11/19 06:47 68 16 154/82 H 93 11/11/19 06:33 36.6 C 52 L 16 164/94 H 93 11/11/19 05:29 36.5 C 82 16 163/99 H 94 11/11/19 04:13 36.3 C L 52 L 16 143/75 H 93 11/11/19 03:38 67 20 92 11/11/19 03:14 36.3 C L 77 18 154/91 H 93 11/11/19 01:33 36.5 C 81 16 145/77 H 94 11/10/19 23:40 36.5 C 64 64 18 148/83 H 94 11/10/19 23:36 77 18 96 11/10/19 21:40 36.5 C 64 64 18 136/74 94 11/10/19 19:54 97 H 16 92 11/10/19 19:40 36.5 C 69 18 134/78 93 11/10/19 17:40 91 H 14 151/95 H 94 11/10/19 17:12 36.7 C 76 14 143/86 H 94 11/10/19 16:40 36.7 C 68 14 144/89 H 94 11/10/19 16:30 62 13 135/73 93 11/10/19 16:15 67 12 122/89 95 11/10/19 16:00 36.1 C L 63 13 145/86 H 97 11/10/19 15:50 68 15 139/86 95 11/10/19 15:40 78 14 117/85 92 11/10/19 15:30 78 12 116/89 94 11/10/19 15:20 77 13 132/85 95 11/10/19 15:10 77 11 L 115/84 96 11/10/19 15:00 79 12 108/72 97 Pulse Ox 11/11/19 14:55 11/11/19 14:45 11/11/19 14:35 11/11/19 14:25 11/11/19 14:24 11/11/19 14:15 11/11/19 14:05 11/11/19 13:55 11/11/19 13:45 11/11/19 13:35 11/11/19 13:25 11/11/19 13:15 11/11/19 11:23 11/11/19 09:44 11/11/19 08:00 11/11/19 07:35 11/11/19 06:47 11/11/19 06:33 11/11/19 05:29 11/11/19 04:13 11/11/19 03:38 11/11/19 03:14 11/11/19 01:33 11/10/19 23:40 11/10/19 23:36 11/10/19 21:40 11/10/19 19:54 11/10/19 19:40 97 11/10/19 17:40 11/10/19 17:12 11/10/19 16:40 11/10/19 16:30 11/10/19 16:15 11/10/19 16:00 11/10/19 15:50 11/10/19 15:40 11/10/19 15:30 11/10/19 15:20 11/10/19 15:10 11/10/19 15:00 Pain Intensity Left Neck: Pain Intensity: 3 Transfer of Care Handoff Completed per policy Notes Mental Status: alert / awake / arousable Patient Amnestic to Procedure: Yes Nausea / Vomiting: adequately controlled Pain: adequately controlled Airway Patency, RR, SpO2: see Notes below BP & HR: stable & adequate Hydration State: stable & adequate Anesthetic Complications: no major complications apparent and Pt Satisfied with anesthetic care Notes: The patient was taken emergently to the OR for cervical neck hematoma. Preoperatively he required a nonrebreather at 15 L oxygen to maintain SpO2 in the 90s. The patient was noted to have significant airway swelling upon intubation with a Glidescope in the OR. The procedure was uneventful. The patient was given dexmedetomidine IV to minimize coughing and bucking upon waking. The patient was breathing on his own but slow to wake up so he was taken to the PACU with a T-piece. In the PACU the patient became awakened after suctioning his mouth and the ETT was removed. The patient's SpO2 was 89-90. He was given a Duoneb which did not improve his SpO2. He was then placed on high flow NC and his SpO2 improved to 94. The patient's other vital signs have remained stable. The patient also became more awake. The medicine team came to evaluate the patient and decided to place the patient in the ICU overnight. Sign out was given to Dr. Carlson in the ICU.
[2019-11-11] MEDS ORDERED: ICU PROTOCOL FOR HYPERGLYCEMIA PRN (15:33)
[2019-11-11 15:39] LABS: Basophils # (auto) 0.01 K/uL (0-0.2); Basophils % (auto) 0.1 %; Hematocrit (blood only) 40.5 % (42-52); Immature Granulocytes # (auto) 0.09 K/uL (0.00-0.02); Immature Granulocytes % (auto) 0.5 %; Lymphocytes # (auto) 1.12 K/uL (1.2-3.4); Lymphocytes % (auto) 6.5 %; Mean Corpuscular Hgb Conc 34.6 g/dL (32-36); Mean Corpuscular Volume 89.6 fL (80-100); Mean Platelet Volume 10.1 fL (7.4-10.4); Monocytes # (auto) 0.64 K/uL (0.11-0.59); Monocytes % (auto) 3.7 %; Neutrophils # (auto) 15.25 K/uL (1.4-6.5); Neutrophils % (auto) 89.2 %; Platelet Count 200 K/uL (130-400); RDW Coefficient of Variation 13.6 % (11.5-14.5); RDW Standard Deviation 44.8 fL (36.4-46.3); Red Blood Count 4.52 M/uL (4.7-6.1); White Blood Count 17.11 K/uL (4.8-10.8)
--- NOTE | 2019-11-11 15:39 | XRay Report ---
XR chest 1V portable HISTORY: resp failure COMPARISON: Chest 10/11/2014. FINDINGS: No pneumothorax. Bibasilar linear densities. The upper lung zones are clear. No evidence fo r pulmonary edema. The heart is normal in size. Widening of the superior mediastinum. Cervical spinal fusion hardware. Surgical drain overlying the superior mediastinum with the tip terminating at the c ervical spinal fusion. IMPRESSION: 1. Mild widening of the superior mediastinum. This could be due to the AP portable technique. Conside r repeat upright chest x-ray for further evaluation. 2. Right basilar linear densities favor subsegmental atelectasis. A pneumonia could also have a simil ar appearance in the appropriate clinical setting. ACT 112: Negative or not required by law. Electronically signed by: Krish Munoz M.D. 11/11/2019 3:38 PM
[2019-11-11 15:47] LABS: Prothrombin Time 10.8 Seconds (9.0-12.0)
[2019-11-11 15:56] LABS: BUN Creatinine Ratio 21.5 (10-20); Calcium 8.9 mg/dl (8.5-10.1); Creatinine Clr Calc Pharmacy 121.6 ml/min; Est GFR (African American) 106.2; Est GFR (Non-African American) 91.6; Potassium 4.3 mmol/L (3.5-5.1)
[2019-11-11] MEDS ORDERED: AZITHROMYCIN 250 MG TAB PO SCH (16:00)
--- NOTE | 2019-11-11 16:13 | Critical Care Consultation ---
Date of Consultation November 11, 2019 Assessment & Plan (1) Acute hypoxemic respiratory failure: 44-year-old male with a past medical history of obesity, obstructive sleep apnea noncompliant with CPAP, tobacco abuse, vaping medical marijuana who is presenting to the hospital with cervical radiculopathy and underwent C6-C7 anterior cervical discectomy and fusion and subsequently went into respiratory failure and required evacuation of hematoma with improvement of symptoms. We will keep him in the ICU overnight to monitor his respiratory status and airway. Currently he has no issues with phonation. No significant swelling noted in the posterior oropharynx. Mallampati class II airway. We will keep video laryngoscope at bedside along with a cricothyrotomy tray. Hemoglobin is stable. INR stable. White count is elevated possibly related to recent Decadron and stress of surgery. Continue decadron for airway swelling. Lactic acid was elevated 3.6, but he has no evidence of decreased perfusion. Lactic acidosis likely related to increased respiratory effort last surgery. He is okay for clear liquid diet by orthopedic surgery. I stressed the importance of smoking cessation and avoiding vaping. He should undergo pulmonary function testing as an outpatient. I also discussed smoking cessation classes. 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 (2) Current vaping on some days: (3) Hematoma: (4) Sleep apnea: (5) Tobacco abuse: History of Present Illness Reason for Consultation: Acute hypoxia Requesting Physician: Resident service Attending Physician: Aki Anna History of Present Illness 44-year-old male with a past medical history of tobacco abuse, obesity, obstructive sleep apnea noncompliant with CPAP therapy who presented to the hospital with acute neck pain on 11/10/2019 and was found to have a C6/C7 herniated disc and foraminal stenosis. He was evaluated by orthopedic surgery yesterday and was found to have profound neuro deficits and severe discomfort failing medical management. Patient underwent an emergent anterior cervical discectomy and fusion of C6-C7. Postoperatively, patient had some trouble with shortness of breath and was taken back to the OR today for evacuation of a cervical hematoma. LISETH drain was placed. 50 mL of blood loss was estimated. Hemoglobin, INR were obtained after the procedure and were within normal limits. Patient had a prolonged extubation after the surgery today and was placed on T- piece spontaneous breathing. He was then extubated to a nonrebreather. He was transferred to the ICU and was briefly on high flow nasal cannula. He is now on 6 L via oxygen mask. He is able to speak full sentences without any shortness of breath. He denies any wheezing currently. He has some mild neck pain. LISETH drain is in place. Patient notes that he is a heavy smoker and has smoked since age of 13. He also vapes medical marijuana. He notices that he wheezes occasionally. He does have allergic rhinitis and uses Flonase. He has several dogs and cats in his house. He also has 3 lizards and internal and a 15 gallon tank at home. He also has a history of obstructive sleep apnea and notes that he weighed over 300 pounds several years ago. Since he lost the weight, he notes that his snoring has improved. He does still feel sleepy during the day on occasion. He has not been reevaluated for sleep apnea. He does not use his CPAP. His is present in the room with him and she also notes that she smokes. Chest x-ray performed today with no significant findings aside for mildly enlarged superior mediastinum. Allergies Allergy/AdvReac Type Severity Reaction Status Date / Time metoprolol Allergy Mild RASH Verified 11/09/19 22:42 propoxyphene Allergy Mild ITCHY Verified 11/09/19 22:42 acetaminophen AdvReac Mild SICK TO Verified 11/09/19 22:42 STOMACH tramadol AdvReac Unknown headache Verified 11/09/19 22:42 prednisone AdvReac Chest Pain Verified 11/09/19 22:42 Home Medications Home Medications Medication Instructions Recorded Confirmed Type gabapentin 1,200 mg PO TID 11/06/19 11/09/19 History Medical Marijuana 0 unit .UD PRN 11/09/19 11/09/19 History diazepam 2 mg PO TID PRN 11/09/19 11/09/19 History ibuprofen 1,600 mg PO .TID/UD 11/09/19 11/09/19 History simvastatin 40 mg PO QPM 11/09/19 11/09/19 History oxycodone 5 mg PO Q6H PRN #10 tab 11/10/19 Rx Patient History Medical History Back pain, chronic Dyslipidemia Medical marijuana use Sleep apnea Smoker Social History Smoking Status: Current every day smoker Second Hand Exposure: Yes; Do You Dip or Chew Tobacco: No; Tobacco Cessation Education Requested by Patient: No Hx Alcohol Use: No Hx Substance Use: Yes Last Used Substance: Hours (ago) Preferred Language: Serbian Communication Ability: Effective Baster Hand Required: No Beliefs That Will Affect Care: None marital status: Current Living Situation: Spouse and Family Other Information That Helps Us Care for You: No Feels Safe at Home: Yes Safety Concerns: Feels Safe At This Time Review of Systems Review of Systems: All systems reviewed & are unremarkable except as noted in HPI & below Physical Exam Constitutional: WD/WN, vitals as above Eyes: PERRL, conjunctivae normal, anicteric sclerae ENMT: Mallampati Class: II Neck: + thick neck and + limited neck extension LISETH drain in place. Bandage in place over incision site. Respiratory: normal respiratory effort, lungs clear to auscultation Cardiovascular: RRR, no murmur, no edema Gastrointestinal (Abdomen): normal bowel sounds, soft, nontender, no hepatosplenomegaly Musculoskeletal: no cyanosis or clubbing, extremities motor strength 5/5 Skin: no rashes, warm and dry Neurologic: PERRL, EOMI, accommodation nl, no face palsy, no dysarthria Psychiatric: A+Ox3, euthymic affect Results & Data Results & Data ([facility]) Vital Signs (Past 12 Hours) Vital Signs Temp Pulse Pulse Resp BP BP Pulse Ox 11/11/19 14:55 97.3 F L 75 14 116/80 94 11/11/19 14:45 76 18 127/86 90 11/11/19 14:35 73 18 115/76 94 11/11/19 14:25 76 17 112/73 93 11/11/19 14:24 70 20 91 11/11/19 14:15 71 15 101/69 91 11/11/19 14:05 73 14 104/65 87 L 11/11/19 13:55 66 15 106/77 90 11/11/19 13:45 59 L 14 98/57 L 93 11/11/19 13:35 59 L 13 91/58 L 95 11/11/19 13:25 58 L 14 96/58 L 94 11/11/19 13:15 97.3 F L 58 L 14 85/56 L 97 11/11/19 11:23 94 H 24 159/95 H 95 11/11/19 09:44 98.4 F 98 H 19 161/97 H 93 11/11/19 08:00 97.5 F L 78 18 152/87 H 91 11/11/19 07:35 97 H 17 92 11/11/19 06:47 68 16 154/82 H 93 11/11/19 06:33 97.9 F 52 L 16 164/94 H 93 11/11/19 05:29 97.7 F 82 16 163/99 H 94 11/11/19 04:13 97.3 F L 52 L 16 143/75 H 93 I reviewed vital signs, labs and imaging Coding Level of Care Code 14060 Inpt Consult Level 5 Diagnoses Acute hypoxemic respiratory failure J96.01 Current vaping on some days Z72.89 Hematoma T14.8XXA Sleep apnea G47.30 Tobacco abuse Z72.0
[2019-11-11] MEDS: POLYETHYLENE (MIRALAX) 17 GM PACK PO SCH ×2 (16:31→16:35)
[2019-11-11] MEDS: DEXAMETHASONE SOD PHOSPHATE 8 MG in SYRINGE 0 ML IV SCH (16:31)
[2019-11-11] MEDS: ALBUT/IPRATROP 3MG/0.5MG NEB 3 ML VIAL INH SCH ×2 (19:01→23:01)
--- NOTE | 2019-11-11 19:31 | Billing Data ---
Date of Service November 11, 2019 Coding Level of Care Code 88604 Subseq Hosp Care Lvl 3
[2019-11-11] MEDS ORDERED: DEXAMETHASONE SOD PHOSPHATE 10 MG in SYRINGE 0 ML IV SCH (21:00)
[2019-11-11] MEDS: DOCUSATE SODIUM/SENNA 50/8.6MG TAB PO SCH (21:18)
[2019-11-11] MEDS: LORazepam 0.5 MG TAB PO PRN (21:18)
[2019-11-11] MEDS: SIMVASTATIN 40 MG TAB PO SCH (21:19)
[2019-11-12] MEDS: DEXAMETHASONE SOD PHOSPHATE 8 MG in SYRINGE 0 ML IV SCH ×3 (00:19→17:01)
[2019-11-12] MEDS: POLYETHYLENE (MIRALAX) 17 GM PACK PO SCH ×4 (00:19→18:33)
[2019-11-12] MEDS: ALBUT/IPRATROP 3MG/0.5MG NEB 3 ML VIAL INH SCH ×6 (02:45→22:41)
[2019-11-12 04:50] LABS: Hematocrit (blood only) 42.2 % (42-52); Hemoglobin 14.2 g/dL (14.0-18.0); Immature Granulocytes # (auto) 0.09 K/uL (0.00-0.02); Immature Granulocytes % (auto) 0.5 %; Lymphocytes # (auto) 0.92 K/uL (1.2-3.4); Lymphocytes % (auto) 5.1 %; Mean Corpuscular Hemoglobin 30.7 pg (25-34); Mean Corpuscular Hgb Conc 33.6 g/dL (32-36); Mean Corpuscular Volume 91.1 fL (80-100); Mean Platelet Volume 9.8 fL (7.4-10.4); Monocytes # (auto) 1.14 K/uL (0.11-0.59); Monocytes % (auto) 6.3 %; Neutrophils # (auto) 16.03 K/uL (1.4-6.5); Neutrophils % (auto) 88.1 %; Platelet Count 221 K/uL (130-400); RDW Coefficient of Variation 13.8 % (11.5-14.5); RDW Standard Deviation 45.7 fL (36.4-46.3); Red Blood Count 4.63 M/uL (4.7-6.1); White Blood Count 18.18 K/uL (4.8-10.8)
[2019-11-12] MEDS: OXYCODONE HCL IR 5 MG TAB (IMMEDIATE RELEASE) PO PRN ×3 (04:53→20:19)
[2019-11-12 05:07] LABS: BUN Creatinine Ratio 21.5 (10-20); Blood Urea Nitrogen 22 mg/dl (7-18); Calcium 9.2 mg/dl (8.5-10.1); Carbon Dioxide 28 mmol/L (21-32); Chloride 106 mmol/L (98-107); Creatinine Clr Calc Pharmacy 118.1 ml/min; Est GFR (African American) 102.4; Est GFR (Non-African American) 88.4; Glucose 148 mg/dl (70-99); Magnesium 2.4 mg/dl (1.8-2.4); Phosphorus 3.2 mg/dl (2.5-4.9); Sodium 140 mmol/L (136-145)
[2019-11-12 05:11] LABS: Troponin I < 0.015 ng/ml (0-0.045)
--- NOTE | 2019-11-12 08:00 | XRay Report ---
XR chest 1V portable CLINICAL HISTORY: post operative chest congestion COMPARISON STUDY: Chest radiograph November 11, 2019. FINDINGS: Postoperative findings within the cervical spine are noted. There is a surgical drain in pl [place]. Left basilar opacity slightly improved. Right basilar opacity similar to prior exam. There is no evidence for pulmonary edema. Cardiomediastinal silhouette is stable. Mild superior medial widening is unchanged. There is no pneumothorax. IMPRESSION: 1. Persistent bibasilar opacities which favor atelectasis. Slight improvement in left basilar opacity . 2. No change in mild widening of the superior mediastinum. ACT 112: Negative or not required by law. Electronically signed by: Arnol Bruce M.D. 11/12/2019 7:58 AM
[2019-11-12] MEDS: GABAPENTIN 600 MG TAB PO SCH ×3 (08:12→20:18)
[2019-11-12] MEDS: NICOTINE 21 MG/24 HR TDSY TD SCH (08:13)
--- NOTE | 2019-11-12 08:18 | Critical Care Progress Note ---
Date of Service November 12, 2019 Assessment & Plan Admission and Anticipated Discharge Date Admission Date: November 10, 2019 44-year-old male with a past medical history of HLD, IVETT, and smoking abuse history. He is s/p C6-7 anterior cervical discectomy and fusion, complicated by hematoma formation, now s/p evacuation. Pain and swelling are improved, continue to monitor in the ICU. Neuro - - cervical radiculopathy now s/p discectomy and fusion Cardiac - - risk factors for cardiac disease include smoking, HLD - troponin negative Respiratory - - patient difficult to extubate requiring supplemental oxygen - lactate no longer up trending 3.6 -> 4.9 -> 4.0 - procalcitonin nl. - oxygen weaned to 6L oxy-mask - continue to discuss smoking cessation during hospitalization - on Decadron 8mg Q8H - prior history of sleep apnea, not using CPAP at home, consider further outpatient evaluation and treatment GI - - Clear liquid diet - IVF LR 100 ml/hr - GI prophylaxis with Famotidine IV BID given steroid use RENAL/LYTES - - K 4 today, phos. 4.5, mg. 2.3 - Cr. 1.02 - - some dysuria, potentially irritation from Solis that was remove - continue to follow ENDO - - HLD, on simvastatin at home, held HEME - - H&H stable INR 1 ID - - leukocytosis likely secondary to surgery, normal temp, slight increase in sputum production, no tachypnea appreciated - continue to trend and evaluate clinically with low threshold to treat empirically for PNA - AM CBC - MRSA negative MSK - - s/p discectomy and fusion and evacuation of hematoma - care per orthopedics LINES/IV ACCESS - - PIV DVT PROPHYLAXIS - - SCD's in the post operative setting Supervising Physician Co-Signing Physician Notes Pt seen and examined with resident physician. Agree with a/p aside for any additions/exceptions noted: Clinically improved. Lactic acidosis improving. Likely related to increased work of breathing initially and post surgical inflammation. Pro-sherly negative. Repeat cxr with minimal superior mediastinal widening. LISETH drain in place. Still some mild hypoxemia. Possibly shunt related to atelectasis. Hx of smoking. Encouraged to quit. Encouraged to have restesting for IVETT. If respiratory status worsens, recommend repeating CT neck and CT chest with PE protocol. Ortho following. Ok to transfer to floor. Subjective Mr. Apodaca was doing okay this morning. He did have 8/10 back and neck pain described as soreness. He had some sputum production that he was swallowing and some that he coughed up was white with no blood. He feels and his swelling has improved from the day prior. He was having some pleuritic chest pain that he experienced when getting up that he related to not breathing deeply and mucle pain. Review of Systems Review of Systems: constitutionals: denies fevers, admits chills cardiac: denies palpitations, admits pain in chest prior to burping GI: denies nausea or vomiting pulmonary: admits slight cough with improved shortness of breath and some white sputum production Neuro: admits slight headache similar to prior headaches minor, : admits pain with urination that he relates to the catheter removal Physical Exam Constitutional: well developed and well nourished - obese, sitting in bed with bandage over anterior neck Eyes: PERRL ENMT: - throat with no significant swelling appreciated in the posterior oropharynx Neck: - neck swelling appreciated with no significant pain on palpation - bandage on c/d/i - drain in place with bloody fluid Respiratory: lungs clear to auscultation bilaterally Cardiovascular: regular rate and rhythm with no murmur rubs or gallops appreciated Gastrointestinal (Abdomen): - soft, nTTP, + bowel sounds Skin: warm, dry, intact Neurologic: - no focal deficits appreciated Psychiatric: Orientation: alert and oriented x 3 Results & Data Results & Data ([facility]) Vital Signs (Past 12 Hours) Vital Signs Temp Pulse Pulse Resp BP Pulse Ox 11/12/19 07:13 83 20 92 11/12/19 05:44 36.7 C 97 H 26 H 148/76 H 92 11/12/19 04:24 79 16 113/64 93 11/12/19 04:10 36.7 C 107 H 23 149/101 H 88 L 11/12/19 03:54 118 H 18 174/112 H 86 L 11/12/19 03:39 79 19 149/92 H 93 11/12/19 03:24 107 H 10 L 135/72 96 11/12/19 03:09 92 H 14 150/94 H 96 11/12/19 02:54 36.7 C 94 H 13 116/63 95 08/22/20 02:47 86 14 96 11/12/19 02:24 91 H 17 108/79 96 11/12/19 02:09 36.7 C 86 22 124/80 94 11/12/19 01:54 84 16 130/93 94 11/12/19 01:23 86 7 L 142/84 H 91 11/12/19 01:09 97 H 14 121/82 93 11/12/19 00:38 72 17 105/82 92 11/12/19 00:24 90 16 122/71 91 11/12/19 00:08 82 17 113/82 91 11/11/19 23:53 75 18 135/90 92 11/11/19 23:38 75 15 113/79 93 11/11/19 23:23 80 14 122/79 93 11/11/19 23:08 93 H 20 138/77 92 11/11/19 23:03 87 16 95 11/11/19 22:53 67 25 H 126/78 95 11/11/19 22:38 78 16 141/87 H 95 11/11/19 22:23 84 18 127/87 95 11/11/19 22:08 36.6 C 86 15 129/82 95 11/11/19 21:53 81 17 138/87 94 11/11/19 21:38 36.6 C 90 17 143/91 H 95 11/11/19 21:24 92 H 21 146/91 H 90 11/11/19 21:08 95 H 17 154/90 H 97 11/11/19 20:53 93 H 16 126/72 95 11/11/19 20:38 93 H 17 122/71 92 11/11/19 20:24 36.6 C 86 14 127/87 93 11/11/19 20:08 36.6 C 90 16 146/97 H 92 CBC Results Results Complete Blood Count Results: RBC 4.63 M/uL (4.7-6.1) L 11/12/19 WBC 18.18 K/uL (4.8-10.8) H 11/12/19 Hgb 14.2 g/dL (14.0-18.0) 11/12/19 Hct 42.2 % (42-52) 11/12/19 Plt Count 221 K/uL (130-400) 11/12/19 Chemistry (BMP) Results BMP Results: Sodium 140 mmol/L (136-145) 11/12/19 Potassium 4.0 mmol/L (3.5-5.1) 11/12/19 Chloride 106 mmol/L (98-107) 11/12/19 BUN 22 mg/dl (7-18) H 11/12/19 Creatinine 1.02 mg/dl (0.6-1.4) 11/12/19 Glucose 148 mg/dl (70-99) H 11/12/19 Resident Activity Tracking Resident Involvement: Resident Care Provided Care Provided: [facility] Medicine
[2019-11-12 09:05] LABS: Alanine Aminotransferase 16 U/L (12-78); Albumin Level 3.5 gm/dl (3.4-5.0); Alkaline Phosphatase 40 U/L (45-117); Aspartate Aminotransferase 10 U/L (15-37); Bilirubin Direct < 0.1 mg/dl (0-0.2); Bilirubin,Total 0.4 mg/dl (0.2-1); Total Protein 6.8 gm/dl (6.4-8.2)
--- NOTE | 2019-11-12 09:45 | Orthopedic Progress Note ---
Date of Service November 12, 2019 Assessment & Plan (1) Cervical herniated disc: Admission and Anticipated Discharge Date Admission Date: November 10, 2019 At this time we will maintain the LISETH drain. I will advance his diet. He may be discharged orthopedic floor per ICU attendings recommendation. Subjective Patient's swallowing is much improved. Denies shortness of breath. Arm symptoms resolved. Physical Exam Physical Exam: His neck is supple. The drain is working properly. Excellent strength testing upper extremity. Results & Data ([facility]) Vital Signs (Past 12 Hours) Vital Signs Temp Pulse Pulse Resp BP Pulse Ox 11/12/19 08:15 36.8 C 11/12/19 07:45 94 H 20 139/76 91 11/12/19 07:13 83 20 92 11/12/19 05:44 36.7 C 97 H 26 H 148/76 H 92 11/12/19 04:24 79 16 113/64 93 11/12/19 04:10 36.7 C 107 H 23 149/101 H 88 L 11/12/19 03:54 118 H 18 174/112 H 86 L 11/12/19 03:39 79 19 149/92 H 93 11/12/19 03:24 107 H 10 L 135/72 96 11/12/19 03:09 92 H 14 150/94 H 96 11/12/19 02:54 36.7 C 94 H 13 116/63 95 11/12/19 02:47 86 14 96 11/12/19 02:24 91 H 17 108/79 96 11/12/19 02:09 36.7 C 86 22 124/80 94 11/12/19 01:54 84 16 130/93 94 11/12/19 01:23 86 7 L 142/84 H 91 11/12/19 01:09 97 H 14 121/82 93 11/12/19 00:38 72 17 105/82 92 11/12/19 00:24 90 16 122/71 91 11/12/19 00:08 82 17 113/82 91 11/11/19 23:53 75 18 135/90 92 11/11/19 23:38 75 15 113/79 93 11/11/19 23:23 80 14 122/79 93 11/11/19 23:08 93 H 20 138/77 92 11/11/19 23:03 87 16 95 11/11/19 22:53 67 25 H 126/78 95 11/11/19 22:38 78 16 141/87 H 95 11/11/19 22:23 84 18 127/87 95 11/11/19 22:08 36.6 C 86 15 129/82 95 11/11/19 21:53 81 17 138/87 94
[2019-11-12] MEDS ORDERED: bisacodyL 10 MG SUPP PR PRN (14:38)
--- NOTE | 2019-11-12 19:51 | Hospitalist Progress Note ---
Date of Service November 12, 2019 Assessment & Plan (1) Cervical radiculopathy: New Oxygen Requirement/acute hypoxic respiratory failure - post op - was fairly severe, now improving more. ?upper airway compromise but didn't have stridor. seemed clinically far more c/w lower airway / COPD-flare like illness. - improving nicely - managing w steroids, nebs - safe for transfer out of ICU - with quite significant smoking hx (?50pk/yrs despite only being 44yrs old?) - PFTs as outpt in ~1-2 months 2) cervical radiculopathy now post op c6-c7 discectomy and fusion - pain control improving, hematoma appears to be improving - surgical management by ortho 3) HLD continue simvastatin DVT ppx: SCDs stable for transfer out of ICU Admission and Anticipated Discharge Date Admission Date: November 10, 2019 Subjective feeling much better breathing easier no new complaints. wants to get out of ICU Review of Systems Review of Systems: All systems reviewed & are unremarkable except as noted in HPI & below Physical Exam Physical Exam: gen aaox3 pleasant nad heent nc at mmm neck with drain but no crepitis, swelling very soft and compressible, dressing c/d/i. cardio reg no r/m/g lungs cta b/l no rr/w/ good effort no accessory muscles good effort skin no rashes no pallor or icterus no focal neuro deficits Results & Data Results & Data ([facility]) Vital Signs (Past 12 Hours) Vital Signs Temp Pulse Pulse Resp BP Pulse Ox 11/12/19 18:57 102 H 20 93 11/12/19 17:45 95 H 17 137/80 93 11/12/19 16:45 79 18 157/84 H 90 11/12/19 15:45 80 17 156/86 H 91 11/12/19 15:14 71 18 95 11/12/19 14:45 93 H 19 160/93 H 95 11/12/19 13:45 94 H 19 161/105 H 94 11/12/19 11:45 92 H 20 155/98 H 91 11/12/19 11:07 72 18 94 11/12/19 10:45 81 15 134/73 95 11/12/19 09:45 92 H 17 132/75 94 11/12/19 08:45 94 H 22 148/79 H 94 11/12/19 08:15 98.2 F 11/12/19 07:45 94 H 20 139/76 91 PG Care Time/CCT Total # of Minutes Spent Total Time Spent with Patient: Total time spent is greater than 50% in coordination of care (as documented) at patient's floor/unit and/or counseling patient: Coding Level of Care Code 79872 Subseq Hosp Care Lvl 3 Diagnoses Cervical radiculopathy M54.12
[2019-11-12] MEDS: SIMVASTATIN 40 MG TAB PO SCH (20:18)
[2019-11-12] MEDS: DOCUSATE SODIUM/SENNA 50/8.6MG TAB PO SCH (20:18)
[2019-11-12] MEDS ORDERED: FAMOTIDINE 10 MG TABLET PO SCH (21:00)
[2019-11-12] MEDS: LORazepam 0.5 MG TAB PO PRN (21:19)
[2019-11-12] MEDS: FAMOTIDINE 20 MG in SYRINGE 3 ML IV SCH (21:19)
--- NOTE | 2019-11-12 23:43 | Billing Data ---
Date of Service November 12, 2019 Coding Level of Care Code 04747 Subseq Hosp Care Lvl 3
[2019-11-13] MEDS: POLYETHYLENE (MIRALAX) 17 GM PACK PO SCH ×4 (00:12→12:05)
[2019-11-13] MEDS: DEXAMETHASONE SOD PHOSPHATE 8 MG in SYRINGE 0 ML IV SCH ×2 (00:13→07:29)
[2019-11-13] MEDS: ALBUT/IPRATROP 3MG/0.5MG NEB 3 ML VIAL INH SCH ×3 (03:10→11:18)
[2019-11-13] MEDS: OXYCODONE HCL IR 5 MG TAB (IMMEDIATE RELEASE) PO PRN ×2 (04:15→09:07)
[2019-11-13 05:42] LABS: Basophils # (auto) 0.01 K/uL (0-0.2); Basophils % (auto) 0.1 %; Hematocrit (blood only) 41.2 % (42-52); Hemoglobin 14.5 g/dL (14.0-18.0); Immature Granulocytes # (auto) 0.42 K/uL (0.00-0.02); Immature Granulocytes % (auto) 2.1 %; Lymphocytes # (auto) 1.89 K/uL (1.2-3.4); Lymphocytes % (auto) 9.5 %; Mean Corpuscular Hemoglobin 30.9 pg (25-34); Mean Corpuscular Hgb Conc 35.2 g/dL (32-36); Mean Corpuscular Volume 87.8 fL (80-100); Mean Platelet Volume 9.7 fL (7.4-10.4); Monocytes # (auto) 1.64 K/uL (0.11-0.59); Monocytes % (auto) 8.3 %; Neutrophils # (auto) 15.89 K/uL (1.4-6.5); Platelet Count 220 K/uL (130-400); RDW Coefficient of Variation 13.4 % (11.5-14.5); Red Blood Count 4.69 M/uL (4.7-6.1); White Blood Count 19.85 K/uL (4.8-10.8)
[2019-11-13] MEDS: NICOTINE 21 MG/24 HR TDSY TD SCH (07:29)
[2019-11-13] MEDS: GABAPENTIN 600 MG TAB PO SCH (07:29)
[2019-11-13] MEDS: FAMOTIDINE 20 MG in SYRINGE 3 ML IV SCH (07:37)
--- NOTE | 2019-11-13 09:56 | Hospitalist Progress Note ---
Date of Service November 13, 2019 Assessment & Plan (1) Cervical radiculopathy: Mr. Apodaca is a 44 yo M with a PMH of HLD and IVETT admitted for severe neck pain and arm weakness due to severe C6-C7 disc protrusion requiring Anterior Cervical Discectomy and Fusion. 1) New Oxygen Requirement - post-extubation noted to have increasing oxygenation needs, stabilized at 91% SpO2 on 40L HFNC - transferred to ICU for close monitoring in case he requires escalation of airway protection with intubation - hx smoking since age 13, at most 3 packs per day, has recently come down to 1 ppd. Last cigarette 11/08 - pulmonary toilet: flutter valve, Duonebs Q4H, incentive spirometry, azithromycin daily for anti-inflammatory benefit, - 8 mg IV Decadron Q8H for laryngeal swelling - racemic epinephrine 2.25% 0.5ml inh prn for stridor 2) post op c6-c7 discectomy and fusion - required emergent removal of hematoma forming around incision today - primary post-surgical management by Dr. Yeh - pain control scheduled: dexamethasone 6mg IV BID gabapentin 1200mg PO TID phenergan 12.5mg iv q6h prn for breakthrough pain: diphenhydramine 25mg IV q4h prn acetaminophen 1000mg PO q8h prn pain 1-3, pre-pt acetaminophen 1000mg in 100ml IV q8h 400ml/hr prn pain 1-3, pre-pt hydromorphone 0.5mg IV q2h prn moderate pain 4-6 hydromorphone 0.5mg IV q3h prn moderate pain 4-6, pre-pt hydromorphone 1mg IV q2h prn severe pain 7-10 hydromorphone 1mg IV q3h prn severe pain 7-10 toradol 15mg iv q6h prn oxycodone 5-10mg po q4h prn for pain, pre-pt narcosis: naloxone 0.4mg IV one prn naloxone 0.1mg iv q5m prn 3)dyspepsia: aluminum/magnesium 30ml po q6h prn famotidine 20mg po q12h prn 4)constipation: dulcolax 10mg pr QD prn senna 2tab po HS tab mag hydroxide 30ml po q24h prn miralax 17gm po q6h sod phorph 132ml pr one prn enema 5)sedation/anxiety: lorazepam 0.5ml in 1ml IV q8h 1ml/min prn lorazepam 0.5mg po q8h prn diphenhydramine 25mg po q6h prn hydroxyzine 25mg po q8h prn 6)n/v: metoclopromide 10mg iv q6h prn ondansetron 4mg iv q6h prn ondansetron 4mg po q6h prn fluids: LR IV q10h 100ml/hr 7) HLD continue simvastatin DVT ppx: SCDs FEN/GI: LR @100ml/hr, NPO Full Code Dispo: ICU Admission and Anticipated Discharge Date Admission Date: November 10, 2019 Results & Data Results & Data ([facility]) Vital Signs (Past 12 Hours) Vital Signs Temp Pulse Pulse Resp BP BP Pulse Ox 11/13/19 07:23 36.4 C L 72 16 126/77 91 11/13/19 06:59 71 20 91 11/13/19 04:10 36.3 C L 71 14 109/67 91 11/13/19 03:08 76 18 92 11/13/19 00:50 36.9 C 86 16 136/89 91 11/12/19 22:43 89 18 90 11/12/19 22:42 89 18 90 11/12/19 22:18 36.6 C 70 18 144/80 H 90
[2019-11-13] MEDS: LORazepam 0.5 MG TAB PO PRN (11:05)
--- NOTE | 2019-11-13 12:15 | Orthopedic Progress Note ---
Date of Service November 13, 2019 Assessment & Plan (1) Cervical herniated disc: Admission and Anticipated Discharge Date Admission Date: November 10, 2019 This time we will outpatient be discharged home today. We will maintain the LISETH drain he will come to my office Thursday for its removal. Subjective Patient swallowing well no hoarseness. No shortness of breath. Pain well controlled. Physical Exam Physical Exam: Patient is good strength testing is ambulating without difficulty. His neck is quite supple. Drain is working appropriately. Results & Data ([facility]) Vital Signs (Past 12 Hours) Vital Signs Temp Pulse Pulse Resp BP BP Pulse Ox 11/13/19 11:42 36.6 C 71 18 159/95 H 90 11/13/19 11:18 77 18 90 11/13/19 10:58 36.6 C 103 H 17 159/95 H 90 11/13/19 07:23 36.4 C L 72 16 126/77 91 11/13/19 06:59 71 20 91 11/13/19 04:10 36.3 C L 71 14 109/67 91 11/13/19 03:08 76 18 92 11/13/19 00:50 36.9 C 86 16 136/89 91
--- NOTE | 2019-11-13 13:36 | Discharge Summary ---
Date of Service November 13, 2019 Admission HPI Per Admitting Provider Manuel Apodaca is a 44-year-old male who presents with progressive worsening neck pain with left greater than right arm and leg weakness and decreased sensation. Patient reports that he was seen in the ED on 11/05 when he woke up Thursday with increased severe left-sided pain in the neck and shoulder. He has had some chronic mild weakness in his left hand which he thought was due to carpal tunnel. He has also had neuropathy, which he qualifies as cody-[id number]-owdegrc and decreased sensation in his hands and legs, left worse than the right side, with no history of diabetes. He feels the symptoms suddenly worsened 4 days ago after returning home from work. 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 He reports he presented to the emergency department because his neck pain became so severe/10 out of 10 he could not wait to be seen. He notes that any movements of the neck worsen his pain, and that the back of his neck has become sore and sensitive to the touch. He denies chest pain, chest pressure, shortness of breath, difficulty breathing, syncope, presyncope. He has not had any bowel or bladder incontinence or retention. Medical history: Reviewed Surgical history: Reviewed Medications: Reviewed Allergies: Reviewed. Social: 1 pack/day cigarette use for "many years ", would like a patch during admission. Denies alcohol use. No street drug use. Dors is medical marijuana use for which he has a card, uses both vaporized and flour/edible formulations. CODE STATUS: Full code Admission Exam Per Admitting Provider General: A&Ox3. Appears in pain. Cooperative. HEENT: Atraumatic, normocephalic. Pulm: CTAB A&P. -wheezes, -rales, -rhonchi. Symmetrical chest rise. No increase work of breathing. No respiratory distress. Cardiac: RRR, -mrg. Radial pulses intact and symmetrical. Abdominal: Nontender, nondistended, soft. BS present. MSK: Increased paraspinal muscle tone bilaterally at the cervical levels, patient endorses tenderness to palpation and inability to rotate or laterally bend his neck due to induction of pain. CN II: Visual taveras are full to confrontation. Pupils are equal and react to light and accomidation. Visual acuity grossly intact. CN III, IV, : At primary gaze, there is no eye deviation. EoM intact without nystagmus. No visual field cuts. CN V: Facial sensation is intact to soft touch in all 3 divisions bilaterally. CN VII: No facial asymmetry, full strength to eyebrow raise, smile, eye close, and cheek puff. CN VII: Hearing is grossly intact. CN IX, X: Palate elevates symmetrically. Phonation is normal without dysarthria. CN XI: Head turning limited as noted above. CN XII: Tongue protrudes midline. Sensory: Sensation to light touch diminished in the fingertips and feet bilaterally, more diminished on the left compared to the right. Sensation to sharp touch also diminished, but less so than soft touch. Equal sensation across the first through fifth digits on the hand and feet bilaterally. Strength: RUE: finger flexion/extension, financial sales representative strength, interosseous 5/5 LUE: finger flexion/extension, financial sales representative strength, interosseous 4-/5 RLE: ankle plantar flexion/dorsiflexion 5/5 LLE: ankle plantar flexion/dorsiflexion 5/5 Principal Diagnosis C6,C7 Cervical Discectomy and Fusion Discharge Exam Gen: a&ox3, nad HEENT: NCAT Neck: draining serosanguinous output in drain, no crepitus, considerably less swelling, soft and compressible, dressing clean, dry, intact Card: rrr, no mrg lungs: CTA BL, good resp effort, no accessory muscles, no wheeze/crackles/ skin: no rashes, pallor, icterus neuro: no focal deficits msk: upper extremity ROM improved Discharge Data Allergies Allergy/AdvReac Type Severity Reaction Status Date / Time metoprolol Allergy Mild RASH Verified 11/09/19 22:42 propoxyphene Allergy Mild ITCHY Verified 11/09/19 22:42 acetaminophen AdvReac Mild SICK TO Verified 11/09/19 22:42 STOMACH tramadol AdvReac Unknown headache Verified 11/09/19 22:42 prednisone AdvReac Chest Pain Verified 11/09/19 22:42 Consultations 11/10/19 02:14 ED Decision to Admit Stat 11/10/19 04:53 Consult Orthopedic Surgery Routine 08/21/20 15:13 Consult Bindery Manager Routine 11/11/19 15:33 Consult Case Management - Discharge Planning Routine Procedures Performed Operation Date: 11/10/19 12:20 Actual Procedures p C6-C7 Anterior Cervical Discectomy and Fusion(Not Applicable) - Idris Yeh DO Operation Date: 11/11/19 14:45 Actual Procedures p Evacuation of Cervical Spine Hematoma(Not Applicable) - Idris Yeh DO Ordered Studies 11/09/19 21:43 MR cervical spine wo con Urgent 11/09/19 21:57 CT angio head wo/w Urgent CT angio neck with con Urgent 11/10/19 FL cervical 2-3V Routine FL fluoroscopy <1hr Routine Hospital Course (1) Cervical radiculopathy: Mr. Apodaca is a 44 yo M with a PMH of HLD and IVETT admitted for severe neck pain and arm weakness due to severe C6-C7 disc protrusion requiring Anterior Cervical Discectomy and Fusion. 1) Post Op C6-C7 discectomy and fusion: MRI on admission showed Large left posterior parasagittal disc extrusion at the C6-7 level with secondary mild cord deformity, probable impingement on the left C7 nerve root, and left C6-7 foraminal narrowing. Taken urgently to the OR for discectomy and fusion with placement of drain. By next morning had formation of a considerable hematoma at incision site and required surgical release and drainage of hematoma with repositioning of drain. Drain appropriately functioning after repeat surgery. Placed on IV Decadron for swelling control. Tapered decadron schedule over 5 days. Pain control per Dr. Yeh(spine ortho). 2) COPD/High Oxygen requirement: after second surgery Mr. Apodaca had a prolonged oxygen requirement that included an overnight stay in the ICU for airway monitoring while he was satting 90-91% on 40L high flow nasal cannula. He was able to titrate down from that to room air over the next 24 hours. This is most likely secondary to undiagnosed COPD (probably has ~45 pack years), felt significantly better with breathing while on duoneb treatments and IV steroids. Would benefit from PFTs for formal diagnosis and addition of daily Tiotropium + PRN Albuterol inhaler for maintenance. Total Time Total Time Spent Total Time Spent (In Minutes): <30 Discharge Plan Discharge Items Patient Disposition: Home - Self-Care Reason For Visit: C6C7 HERNIATION WITH COMPRESSION,PAIN/WEAKNESS Discharge Diagnosis: C6-C7 disc herniation with neural compression and weakness Condition on Discharge: Good Activity: As commented below Non-emergency contact: Primary Care Provider Call non-emergency contact if: you have any medication questions Follow-up/Referrals: Blaze Lee [Primary Care Provider] - Diet: Regular Addtl Attending Provider Instructions: ACTIVITY RECOMMENDATIONS: SELF CARE INSTRUCTIONS AFTER CERVICAL FUSIONS 1. No smoking. Smoking drastically decreases the chance of a solid fusion. 2. No bending, lifting more than 5 pounds, or twisting (roll like a log when turning in bed). 3. You may shower 3 days after surgery. Thoroughly dry wound. Do not soak in the tub. 4. Cervical collar: Must be worn at all times including sleeping. You may remove the brace only to bath, eat and if you are sitting in a recliner. 5. Please walk as much as you can for exercise. Gradually increase the distance that you walk as your endurance increases. SPECIAL CARE INSTRUCTIONS: VERY IMPORTANT TO READ AND REVIEW A. Do not take any anti-inflammatory medications (i.e. Indocin, Advil, Aspirin, Naprosyn, Aleve, Motrin, etc.) as these may inhibit the chance of a solid fusion. Tylenol is okay to take. B. Your surgical incision has been closed with a cosmetic suture under the skin that will dissolve in about 6 weeks. In 14 days, you can use a pair of clean scissors and cut the suture that is left outside of the skin at the ends of your incision. C. Complications are uncommon, but please contact us if you have any signs or symptoms of: 1. wound infection (fever higher than 102.5 degrees F, redness, separation of wound, drainage, or increasing pain from the incision) 2. blood clots in legs (pain, swelling, redness and warmth in legs) 3. urinary tract infection (fever higher than 102.5 degrees, burning upon urination or increased frequency of urination) 4. nerve problems (inability to walk on your toes or heels, numbness, loss of bowel or bladder control) 5. any other symptoms that concern you. D. Please call the office at if you have any concerns or questions about your operation or recovery. MANAGING PAIN AFTER SPINAL SURGERY 1. Narcotic medication is intended for short-term use and will be provided for surgical pain. Surgical pain usually lasts for a period of 4-6 weeks. Narcotic medication includes Percocet, Vicodin, Darvocet, Tylenol #3 or Lortab. 2. Longer-term pain is more appropriately treated with non-narcotic medication such as Tylenol ES. 3. Muscle spasm is not appropriately treated with narcotics. Muscle relaxers such as Soma, Flexeril or Skelaxin can be used along with Tylenol ES. 4. Remember that we all live with some "aches and pains". This is not unusual or uncommon after an injury or as we get older. 5. We will provide appropriate medication within the normal guidelines of their prescribed use. We will also be very cautious and aware of potential abuse and extended duration of patients' medication needs. 6. Please allow 2-3 days to process refills. Prescriptions will not be mailed but must be picked up at the office. FOLLOW UP VISIT: Keep your scheduled follow-up appointment. Any questions, please call the office at . Pending Studies at Discharge: No Stand-Alone Forms: My [facility], Opioid Pain Management, Smoking Cessation Medications and DC Order Prescriptions: New oxycodone 5 mg tablet 5 mg PO Q6H PRN (Reason: pain, severe) Qty: 10 RF: 0 prednisone 50 mg tablet 50 mg PO TID 5 Days Qty: 10 RF: 0 Continued gabapentin 600 mg tablet 1,200 mg PO TID RF: 0 simvastatin 40 mg tablet 40 mg PO QPM RF: 0 diazepam 2 mg Tablet 2 mg PO TID PRN (Reason: Pain) RF: 0 Medical Marijuana 0 unit .UD PRN (Reason: Pain) RF: 0 Discontinued ibuprofen 800 mg tablet 1,600 mg PO .TID/UD RF: 0 Discharge Orders: Discharge Order (Routine); Ordered 11/13/19 Ordered By: Idris Villagran/Other Patient Handouts: DVT Post Op Prevention Admission Data Admit Date/Time: 11/10/19 03:27 Attending Provider: Philip Bradford Admit Provider: Idris Yeh Primary Care Provider: Blaze Lee Other Providers: Angela Weston ; Aki Anna ; Valentín Mcleod ; Idris Yeh ; Jose Roberto Carlson Other Interventions: Discharge Summary Assessment (RN) Last Done: 11/13/19 11:42 Supervising Physician Co-Signing Physician Notes I personally examined the patient and verified all la points of history and exam, discussed case, and agree with decision making with Dr Weston. breathing feeling better neck feeling better "doc i really gotta get out of here" vitals ntoed nad heent nc at mmm lungs cta b/l no rrw good effort skin no rashes no pallor or icterus New Oxygen Requirement/acute hypoxic respiratory failure - post op - was fairly severe, now improving more. ?upper airway compromise but didn't have stridor. seemed clinically far more c/w lower airway / COPD-flare like illness. - improving nicely, now off O2 and stable for home - steroid taper, inhalers on presumption of COPD (that can later be stopped if PFTs prove reassurring) - with quite significant smoking hx (?50pk/yrs despite only being 44yrs old?) - PFTs as outpt in ~1-2 months Resident Activity Tracking Resident Involvement: Resident Care Provided Care Provided: Adult Hospital Medicine
--- NOTE | 2019-11-13 19:46 | Billing Data ---
Date of Service November 13, 2019 Coding Level of Care Code D/C Day Management <30 mins
--- NOTE | 2019-11-14 08:03 | Electrocardiogram Report ---
Test Reason : Blood Pressure : / mmHG Vent. Rate : 063 BPM Atrial Rate : 063 BPM P-R Int : 140 ms QRS Dur : 108 ms QT Int : 394 ms P-R-T Axes : 059 054 065 degrees QTc Int : 403 ms Normal sinus rhythm with sinus arrhythmia Normal ECG When compared with ECG of 10-NOV-2019 18:09, No significant change was found Confirmed by Munir June ([id number]) on 11/14/2019 8:03:10 AM Referred By: REFERRED SELF Confirmed By:Munir June
== END 2019-11-13 12:41 | disposition home or self-care (01) | DRG 471 ==
LOC: ED 21:27 → SUATTDRO 11-10 03:27 → 2N 11-10 03:27 → 3E 11-10 16:41 → 1E 11-11 15:13 → 3E 11-12 17:31

== ENCOUNTER 2021-10-02 11:10 | Inpatient (IN) ==
--- NOTE | 2021-09-24 14:13 | Anesthesiology Consultation ---
Date of Service September 24, 2021 Assessment & Plan (1) Encounter for pre-operative examination: Chart Review Chart Review: Acceptable Risk for Surgery (pending preop Covid testing results ) and Patient NOT seen in Pre Admission Testing Per nursing assessment 09/24/2021, patient denies any recent travel. No known COVID infection in the past 90 days. Patient is not vaccinated for COVID. No known Covid positive exposures or Covid related symptoms. Preop Covid testing scheduled 09/30/21= will await results. C6-7 ACDF 11/10/2019 = done under [place] Glidescope #4. ETT #8. Atraumatic x1. Evacuation cervical hematoma 11/11/2019 = grade 2 view with glide scope #4. Airway very swollen. ETT #7.5. Atraumatic. (Patient brought emergently to the OR due to deteriorating condition.) Per anesthesiology progress note 11/11/19= "The patient was taken emergently to the OR for cervical neck hematoma. Preoperatively he required a nonrebreather at 15 L oxygen to maintain SpO2 in the 90s. The patient was noted to have significant airway swelling upon intubation with a Glidescope in the OR. The procedure was uneventful. The patient was given dexmedetomidine IV to minimize coughing and bucking upon waking. The patient was breathing on his own but slow to wake up so he was taken to the PACU with a T-piece. In the PACU the patient became awakened after suctioning his mouth and the ETT was removed. The patient's SpO2 was 89-90. He was given a Duoneb which did not improve his SpO2. He was then placed on high flow NC and his SpO2 improved to 94. The patient's other vital signs have remained stable. The patient also became more awake. The medicine team came to evaluate the patient and decided to place the patient in the ICU overnight. Sign out was given to Dr. Carlson in the ICU." History Surgery Operation Date: 10/02/21 12:25 Proposed Procedures p Left L3-L4 Microdiscectomy, Possible L3-L4 Fusion - Idris Yeh DO Height/Weight Height: 6 ft 1 in Weight: 106.594 kg Allergies Allergy/AdvReac Type Severity Reaction Status Date / Time metoprolol Allergy Mild RASH Verified 11/09/19 22:42 propoxyphene Allergy Mild ITCHY Verified 11/09/19 22:42 acetaminophen AdvReac Mild SICK TO Verified 11/09/19 22:42 STOMACH tramadol AdvReac Unknown headache Verified 11/09/19 22:42 prednisone AdvReac Chest Pain Verified 11/09/19 22:42 Medications Home Medications Medication Instructions Recorded Confirmed Last Taken gabapentin 600 mg tablet 1,200 mg PO TID 11/06/19 09/24/21 11/06/19 Medical Marijuana 0 unit .UD PRN 11/09/19 09/24/21 Unknown simvastatin 40 mg tablet 40 mg PO QPM 11/09/19 09/24/21 Unknown acetaminophen 300 mg-codeine 30 mg 1 tab PO Q8H PRN 09/24/21 09/24/21 Unknown tablet fluticasone propionate 50 1 spray INTRANASAL QAM 09/24/21 09/24/21 Unknown mcg/actuation nasal spray,suspension latanoprost 0.005 % eye drops 1 drp OPHTHALMIC (EYE) PM 09/24/21 09/24/21 Unknown naproxen sodium 220 mg tablet 220 mg PO Q8H PRN 09/24/21 09/24/21 Unknown (Aleve) Past Medical History Medical History Back pain, chronic Cervical radiculopathy Degenerative disc disease Dyslipidemia Glaucoma History of anesthesia reaction Can be combative ..needs quiet calm environment Medical marijuana use Sleep apnea Noncompliant with CPAP Tobacco abuse Torticollis Past Family History Family History Other Diabetes Past Surgical History Surgical History History of arthroscopy of left shoulder History of meniscectomy of left knee Hx of cervical discectomy C6-C7 - Dr. Yeh Social History Smoking Status: Current every day smoker tobacco type: cigarettes Smoking cigarettes per day: up to a pack/day Do You Dip or Chew Tobacco: No Hx Alcohol Use: Yes Alcohol type: hard liquor alcohol intake frequency: holidays/special occasions only Hx Substance Use: Yes substance use type: marijuana Substance Use Type Other:: Medical marijuana - daily Last Used Substance: Hours (ago) Lab Results Anesthesia Preop Results Results Anesthesia Widget: WBC 7.17 K/uL (4.8-10.8) 09/11/21 Hgb 16.0 g/dL (14.0-18.0) 09/11/21 Hct 45.5 % (42-52) 09/11/21 Plt 190 K/uL (130-400) 09/11/21 Na 139 mmol/L (136-145) 09/11/21 K 3.9 mmol/L (3.5-5.1) 09/11/21 Cl 105 mmol/L (98-107) 09/11/21 CO2 26 mmol/L (21-32) 09/11/21 BUN 12 mg/dl (6-23) 09/11/21 Creat 0.80 mg/dl (0.6-1.4) 09/11/21 Glucose Level 91 mg/dl (70-99(Fasting)) 09/11/21 PT 10.2 Seconds (9.0-12.0) 09/11/21 PTT 29.3 Seconds (21.0-31.0) 09/11/21 INR 1.0 (0.9-1.1) 09/11/21 Urine Color Dark Yellow 09/11/21 Urine Appearance Clear (Clear) 09/11/21 Urine pH 6.5 (4.5-7.5) 09/11/21 Urine Specific [place] 1.024 (1.000-1.030) 09/11/21 Urine Protein Negative (Negative) 09/11/21 Urine Glucose (UA) Negative (Negative) 09/11/21 Urine Ketones Trace (Negative) H 09/11/21 Urine Blood Negative (Negative) 09/11/21 Urine Nitrite Negative (Negative) 09/11/21 Urine Bilirubin Negative (Negative) 09/11/21 Urine Urobilinogen Negative (Negative) 09/11/21 Urine Leukocyte Esterase Negative (Negative) 09/11/21 Testing Laboratory Results 09/11/21= URINE CULTURE: No growth Electrocardiogram Date: 09/11/21 Normal sinus rhythm with sinus arrhythmia at 66 bpm. Nonspecific T wave abnormality. When compared to EKG from November 14, 2019no significant change was found per cardio. Chest X-Ray Date: 09/11/21 Findings: + NAD Other Testing Neck CTA 11/09/2019 = no evidence of hemodynamically significant carotid or vertebral artery stenosis. No evidence of dissection Head CTA 11/09/2019 = normal study
[~2021-10-02 11:10] MED LIST changes: +ACETAMINOPHEN 500 MG TAB PO SCH; -ASPI-390 PO; +CeleBREX 200 MG CAP PO SCH; +GABAPENTIN 900 MG DOSE PO SCH; +LR 15ML/HR IV SCH; -MELO7.5T5 PO; -MORP30TA PO; -RANI150T3 PO; -SIMV40TA4 PO; -[UNRECOGNIZED DRUG - CODE] PO; +ceFAZolin 2000MG 2,000 MG/15 ML SYR IV SCH
[2021-10-02] MEDS ORDERED: fentaNYL citrate 100 MCG/2 ML VIAL ONE (12:05)
[2021-10-02] MEDS ORDERED: PROPOFOL IV EMULSION 10 MG/ML 20 ML VIAL IV ONE (12:05)
[2021-10-02] MEDS ORDERED: LIDOCAINE 2% 2 ML VIAL/AMP(20MG/ML) INFIL ONE (12:05)
[2021-10-02] MEDS ORDERED: MIDAZOLAM HCL 1 MG/ML 2ML VIAL ONE (12:05)
[2021-10-02] MEDS ORDERED: ONDANSETRON INJ 2 MG/ML 2 ML VIAL ONE (12:05)
[2021-10-02] MEDS ORDERED: ROCURONIUM BROMIDE 10 MG/ML 5 ML VIAL IV ONE (12:05)
[2021-10-02] MEDS ORDERED: DEXAMETHASONE SOD INJ 4 MG/ML VIAL ONE (12:05)
[2021-10-02] MEDS ORDERED: ONDANSETRON INJ 2 MG/ML 2 ML VIAL IV PRN ×2 (12:06→16:15)
[2021-10-02] MEDS ORDERED: LABETALOL HCL IV 5 MG/ML 20ML IV PRN (12:06)
[2021-10-02] MEDS ORDERED: PHENYLEPHRINE 100MCG/ML 5ML SYR IV PRN (12:06)
[2021-10-02] MEDS ORDERED: ATROPINE SULFATE 0.1 MG/ML 10ML SYR IV PRN (12:06)
[2021-10-02] MEDS ORDERED: ePHEDrine sulfate 50 MG/ML AMP IV PRN (12:06)
[2021-10-02] MEDS ORDERED: MEPERIDINE HCL 25 MG/ML CARP/VIAL IV PRN (12:06)
[2021-10-02] MEDS ORDERED: KETAMINE 50 MG/5 ML SYRINGE ONE (12:11)
--- NOTE | 2021-10-02 12:33 | History & Physical Bridge Note ---
Date of Service October 02, 2021 History & Physical Bridge Note I have examined the patient, reviewed the History & Physical and in the interval since the performance of the History & Physical I have noted the following changes of clinical significance: no changes noted
--- NOTE | 2021-10-02 12:34 | History & Physical Report ---
Date of Service October 02, 2021 Assessment & Plan (1) Lumbar disc herniation with radiculopathy: Plan: Left L3-L4 microdiscectomy, possible L3-L4 fusion History of Present Illness Chief Complaint: Back and bilateral leg pain Primary Care Provider: Blaze Lee This is a 46-year-old male known to me presents with chronic persistent back and leg pain after failed course of nonoperative care is here for surgical invention. Allergies Allergy/AdvReac Type Severity Reaction Status Date / Time metoprolol Allergy Mild RASH Verified 11/09/19 22:42 propoxyphene Allergy Mild ITCHY Verified 11/09/19 22:42 acetaminophen AdvReac Mild SICK TO Verified 11/09/19 22:42 STOMACH tramadol AdvReac Unknown headache Verified 11/09/19 22:42 prednisone AdvReac Chest Pain Verified 11/09/19 22:42 Home Medications Medication Instructions Recorded Confirmed Type gabapentin 600 mg tablet 1,200 mg PO TID 11/06/19 10/02/21 History Medical Marijuana 0 unit .UD PRN Pain 11/09/19 10/02/21 History simvastatin 40 mg tablet 40 mg PO QPM 11/09/19 10/02/21 History acetaminophen 300 mg-codeine 30 mg 1 tab PO Q8H PRN Pain 09/24/21 10/02/21 History tablet fluticasone propionate 50 1 spray intranasal QAM 09/24/21 10/02/21 History mcg/actuation nasal spray,suspension latanoprost 0.005 % eye drops 1 drp ophthalmic (eye) PM 09/24/21 10/02/21 History naproxen sodium 220 mg tablet 220 mg PO Q8H PRN Pain 09/24/21 10/02/21 History (Aleve) Past Med/Surg History Medical History (Updated 10/02/21 @ 12:34 by Idris Yeh DO) Back pain, chronic Cervical radiculopathy Degenerative disc disease Dyslipidemia Glaucoma History of anesthesia reaction Can be combative ..needs quiet calm environment Medical marijuana use Obesity Psoriasis Sleep apnea Noncompliant with CPAP Tobacco abuse Torticollis Surgical History History of arthroscopy of left shoulder History of meniscectomy of left knee Hx of cervical discectomy C6-C7 - Dr. Yeh Family History Other Diabetes Social History Smoking Status: Current every day smoker Tobacco Type: Cigarettes Cigarettes Per Day: up to a pack/day; Second Hand Exposure: No; Do You Dip or Chew Tobacco: No; Tobacco Cessation Education Requested by Patient: No Hx Alcohol Use: Yes Alcohol type: hard liquor Hx Substance Use: Yes Last Used Substance: Hours (ago) Substance Use Type Other:: Medical marijuana - daily Preferred Language: Yoruba Communication Ability: Effective Clinical Account Liaison Required: No Beliefs That Will Affect Care: None marital status: Current Living Situation: Spouse Other Information That Helps Us Care for You: No Feels Safe at Home: Yes Safety Concerns: Feels Safe At This Time Assistive Devices: Crutches, Denture - Upper and Glasses Physical Exam Physical Exam: Patient is alert and oriented Heart regular in rhythm Lungs clear Results & Data Results & Data ([facility]) Vital Signs (Past 12 Hours) Vital Signs Temp Pulse Resp BP Pulse Ox O2 Del Method 10/02/21 11:33 36.9 C 68 20 139/82 96 Room Air
[2021-10-02] MEDS ORDERED: BUPIVACAINE/EPINEPHRINE 0.25% 1:200,000 30 ML VIAL ONE (12:46)
[2021-10-02] MEDS ORDERED: ceFAZolin 330 MG/ML 1 GM VIAL ONE (12:46)
[2021-10-02] MEDS ORDERED: LARYING-O-JET KIT (LTA) ONE (13:25)
[2021-10-02] MEDS ORDERED: FLOSEAL HEMOSTATIC MATRIX 10ML TOP ONE (14:21)
[2021-10-02] MEDS ORDERED: GLYCOPYRROLATE 0.2 MG/ML VIAL ONE (14:21)
[2021-10-02] MEDS ORDERED: NEOSTIGMINE METHYLSULFATE 1 MG/ML 10ML VIAL ONE (14:21)
--- NOTE | 2021-10-02 14:30 | Operative Report ---
Post Operative Report Pre & Post Diagnosis Operation Date: 10/02/21 12:25 Pre-Op Diagnosis: Lumbar disc herniation with radiculopathy Post-Op Diagnosis: Lumbar disc herniation with radiculopathy I identified the patient and participated in the time-out.: Yes Procedure Operation Date: 10/02/21 12:25 Actual Procedures #1 lumbar decompression with bilateral medial facetectomies and foraminotomies L3-L4. #2 posterior spinal fusion L3-L4 per #3 placement posterior instrumentation L3-L4. #4 interbody fusion L3-L4. #5 placement of Spira 14 x 26 mm cage at L3-L4 #6 placement locally harvested morselized autograft in the posterior gutters. #7 placement of I factor model V toss in interbody space and posterior lateral gutters. Surgeon Idris Yeh, Outside Plant Field Engineer Diana Bangura Estimated Blood Loss 100 Findings Consistent with Post-Op Diagnosis Specimens None Indications This is a 46-year-old male known to me the presents with marked decline in status significant radiculopathy and is here for surgical intervention. Description of Procedure Patient was met with identified informed consent obtained. Patient was then taken to the operative suite underwent a patient placed in a prone position the [place] table top Damian frame. All bony prominences well-padded eyes inspected to ensure no external pressure placed upon the. This point lumbar spine was prepped and draped in normal sterile fashion. Sharp dissection with assistance of Bovie cautery from down to and exposing the interlaminar space at L3-L4. The decompression was performed on the left to identify markedly compressed exiting L3 and traversing L4 nerve root. I did have to sacrifice the majority the facet to adequately decompress the exiting root and address the disc herniation extending throughout the foramen. This created iatrogenic instability. Subsequently extended the dissection up to the transverse processes of L3-L4 bilaterally. I extended the decompression to include bilateral facetectomies for complete decompression. Pedicle screws then placed in L3-L4 bilaterally with assistance of fluoroscopy and the proper sized lester placed. By way of transforaminal approach and left complete discectomy of L3-L4 was performed endplates curetted to subcortically bone and a 14 x 26 mm spiral cage filled with I factor tapped in position. The rods were then compressed locked into final position bilaterally. The transverse processes of L3 and L4 burred to subcortical bleeding bone. I factor combined with V toss and locally harvested morselized autograft was then placed in the posterior gutters. 15 round LISETH drain inserted. The incision was then closed with 1 Vicryl the fascia 2-0 Vicryl subcutaneously and 4 Monocryl for final skin closure. Steri-Strip sterile dressings placed. Patient waken taken to PACU stable condition. Please note spinal cord monitoring was utilized at the procedure no changes noted. Lastly Diana Bangura was present at the entire surgery involved the patient positioning complex portions of the surgery and final skin closure. I attest to the content of the Intraoperative Record and any orders documented therein. Any exceptions are noted below.
--- NOTE | 2021-10-02 14:39 | Fluoroscopy Report ---
FL lumbar spine 2-3V CLINICAL HISTORY: L3-4 MICRO POSSIBLE L3-4 FUSION COMPARISON STUDY: None. FLUOROSCOPY TIME: 15.5 seconds. FINDINGS: 2 fluoroscopic spot images of the lumbar spine demonstrate posterior decompression and fusi on at L3-L4 with pedicle screws and rods. A disc spacer is in place. The hardware is intact. IMPRESSION: Fluoroscopic assistance provided for L3-L4 posterior decompression and fusion. ACT 112: Negative or not required by law. Electronically signed by: Krish Munoz M.D. 10/02/2021 2:38 PM
[2021-10-02] MEDS: fentaNYL citrate 100 MCG/2 ML VIAL IV PRN ×4 (14:54→15:09)
[2021-10-02] MEDS ORDERED: HYDROmorphone INJ 0.5 MG/0.5 ML SYR IV STA ×2 (15:13→15:14)
[2021-10-02] MEDS ORDERED: HYDROmorphone INJ 0.5 MG/0.5 ML SYR ONE (15:15)
--- NOTE | 2021-10-02 16:06 | Anesthesiology Progress Note ---
Date of Service October 02, 2021 Anesthesia Post Procedure Vital Signs Vital Signs: Temp Pulse Pulse Resp BP Pulse Ox O2 Del Method 10/02/21 15:45 68 14 154/94 H 99 Nasal Cannula 10/02/21 15:35 36.6 C 49 L 10 L 159/97 H 98 Oxymask 10/02/21 15:25 36.6 C 65 14 147/89 H 98 Oxymask 10/02/21 15:15 64 14 161/91 H 100 Oxymask 10/02/21 15:05 63 14 151/97 H 99 Oxymask 10/02/21 14:55 65 14 152/92 H 97 Oxymask 10/02/21 14:47 36.4 C L 74 16 134/97 98 Oxymask 10/02/21 11:33 36.9 C 68 20 139/82 96 Room Air O2 Flow Rate 10/02/21 15:45 3 10/02/21 15:35 3 10/02/21 15:25 3 10/02/21 15:15 3 10/02/21 15:05 5 10/02/21 14:55 5 10/02/21 14:47 5 10/02/21 11:33 Pain Intensity Bilateral Back: Pain Intensity: 3 Transfer of Care Handoff Completed per policy Notes Mental Status: alert / awake / arousable Patient Amnestic to Procedure: Yes Nausea / Vomiting: adequately controlled Pain: adequately controlled Airway Patency, RR, SpO2: stable & adequate BP & HR: stable & adequate Hydration State: stable & adequate Anesthetic Complications: no major complications apparent and Pt Satisfied with anesthetic care
[2021-10-02] MEDS ORDERED: diphenhydrAMINE Capsule 25 MG CAP PO PRN (16:15)
[2021-10-02] MEDS ORDERED: MAGNESIUM HYDROXIDE SUSP 30 ML UDC PO PRN (16:15)
[2021-10-02] MEDS ORDERED: LORazepam 0.5 MG in SYRINGE 0.25 ML IV PRN (16:15)
[2021-10-02] MEDS ORDERED: bisacodyL 10 MG SUPP PR PRN (16:15)
[2021-10-02] MEDS ORDERED: FAMOTIDINE 20 MG TAB PO PRN (16:15)
[2021-10-02] MEDS ORDERED: PROMETHAZINE HCL 12.5 MG in SODIUM CHLORIDE 0.9% 50 ML IV PRN (16:15)
[2021-10-02] MEDS ORDERED: HYDROmorphone INJ 0.5 MG/0.5 ML SYR IV PRN (16:15)
[2021-10-02] MEDS ORDERED: NALOXONE HCL 0.4 MG/1 ML VIAL/CARP IV PRN (16:15)
[2021-10-02] MEDS ORDERED: METOCLOPRAMIDE HCL INJ 5 MG/ML 2 ML VIAL IV PRN (16:15)
[2021-10-02] MEDS ORDERED: ONDANSETRON 4 MG OD TAB PO PRN (16:15)
[2021-10-02] MEDS ORDERED: ALUMINUM/MAGNESIUM SUSP 30 ML UDC PO PRN (16:15)
[2021-10-02] MEDS ORDERED: ACETAMINOPHEN 500 MG TAB PO PRN (16:15)
[2021-10-02] MEDS ORDERED: ACETAMINOPHEN 1,000 MG/100 ML VIAL IV PRN (16:15)
[2021-10-02] MEDS ORDERED: hydrOXYzine HCl 25 MG TAB PO PRN (16:15)
[2021-10-02] MEDS ORDERED: SOD PHOSPHATE/SOD BIPHOSPHATE ENEMA 132 ML BTL PR PRN (16:15)
[2021-10-02] MEDS ORDERED: DO NOT ADMINISTER PNEUMOCOCCAL VACCINE PRN (16:15)
[2021-10-02] MEDS ORDERED: DO NOT ADMINISTER FLU VACCINE PRN (16:15)
[2021-10-02] MEDS: LACTATED RINGER'S 1,000 ML IV SCH ×2 (16:28→22:34)
[2021-10-02] MEDS: oxyCODONE HCL IR 5 MG TAB (IMMEDIATE RELEASE) PO PRN (17:41)
[2021-10-02] MEDS: NICOTINE 21 MG/24 HR TDSY TD SCH (19:41)
[2021-10-02] MEDS: LATANOPROST 0.005% OP SOLN 2.5 ML BTL OP SCH (20:15)
[2021-10-02] MEDS: SIMVASTATIN 40 MG TAB PO SCH (20:16)
[2021-10-02] MEDS: DOCUSATE SODIUM/SENNA 50/8.6MG TAB PO SCH (20:16)
[2021-10-02] MEDS: GABAPENTIN 600 MG TAB PO SCH (20:17)
[2021-10-02] MEDS: ceFAZolin 2000MG 2,000 MG/15 ML SYR IV SCH (20:17)
[2021-10-02] MEDS: HYDROmorphone INJ 1 MG/ML SYRINGE IV PRN (22:34)
[2021-10-03] MEDS: oxyCODONE HCL IR 5 MG TAB (IMMEDIATE RELEASE) PO PRN ×4 (00:35→20:04)
[2021-10-03] MEDS: HYDROmorphone INJ 1 MG/ML SYRINGE IV PRN ×2 (02:59→07:05)
[2021-10-03] MEDS: ceFAZolin 2000MG 2,000 MG/15 ML SYR IV SCH (05:17)
[2021-10-03] MEDS: POLYETHYLENE (MIRALAX) 17 GM PACK PO SCH ×3 (05:21→17:47)
[2021-10-03] MEDS: LACTATED RINGER'S 1,000 ML IV SCH (05:48)
[2021-10-03 07:10] LABS: Basophils # (auto) 0.02 K/uL (0-0.2); Basophils % (auto) 0.1 %; Hematocrit (blood only) 40.6 % (40.1-51.0); Hemoglobin 14.3 g/dl (14.0-18.0); Immature Granulocytes # (auto) 0.05 K/uL (0.00-0.02); Immature Granulocytes % (auto) 0.3 %; Lymphocytes # (auto) 1.45 K/uL (1.2-3.4); Lymphocytes % (auto) 8.8 %; Mean Corpuscular Hemoglobin 30.7 pg (25.0-34.0); Mean Corpuscular Hgb Conc 35.2 g/dL (32.0-36.0); Mean Corpuscular Volume 87.1 fL (80.0-100.0); Mean Platelet Volume 10.2 fL (9.4-12.4); Monocytes # (auto) 0.71 K/uL (0.24-0.82); Monocytes % (auto) 4.3 %; Neutrophils # (auto) 14.19 K/uL (1.4-6.5); Neutrophils % (auto) 86.5 %; Platelet Count 192 K/uL (130-400); RDW Coefficient of Variation 13.2 % (11.5-14.5); RDW Standard Deviation 42.2 fL (36.4-46.3); Red Blood Count 4.66 M/uL (4.63-6.08); White Blood Count 16.42 K/ul (4.8-10.8)
[2021-10-03] MEDS: FLUTICASONE PROPIONATE NA SPR 16 GM BTL SCH (07:48)
[2021-10-03] MEDS: GABAPENTIN 600 MG TAB PO SCH ×3 (07:48→20:05)
[2021-10-03] MEDS: dexAMETHasone 6 MG in SYRINGE 0 ML IV SCH (07:48)
[2021-10-03] MEDS: LORazepam 0.5 MG TAB PO PRN ×2 (07:49→19:37)
[2021-10-03 07:53] LABS: BUN Creatinine Ratio 14.1 (10-20); Calcium 9.3 mg/dl (8.5-10.1); Est GFR (African American) 120.3 ml/min; Est GFR (Non-African American) 103.8 ml/min
--- NOTE | 2021-10-03 08:38 | Orthopedic Progress Note ---
Date of Service October 03, 2021 Assessment & Plan (1) Lumbar disc herniation with radiculopathy: Plan: At this time initiate physical therapy monitor his LISETH operatively discharge home the next day or so. Admission and Anticipated Discharge Date Admission Date: October 02, 2021 Subjective Back pain controlled leg pain improved Physical Exam Physical Exam: Patient is good strength testing appears comfortable. Results & Data ([facility]) Vital Signs (Past 12 Hours) Vital Signs Temp Pulse Resp BP Pulse Ox O2 Del Method 10/03/21 08:00 Room Air 10/03/21 06:53 36.6 C 69 18 137/73 91 Room Air 10/03/21 02:45 36.5 C 85 20 135/84 94 Room Air 10/02/21 22:26 36.6 C 61 18 122/76 93 Room Air
--- NOTE | 2021-10-03 15:00 | Consultation ---
Date of Consultation October 03, 2021 Assessment & Plan (1) Lumbar disc herniation with radiculopathy: Lumbar disc herniation with radiculopathy: Patient is now status post lumbar decompression with bilateral medial fasciotomies and foraminotomies, posterior spinal fusion Rest of management per orthopedics (2) Obesity: Patient was advised on diet and exercise (3) Dyslipidemia: Take statin at home, will continue (4) Smoker: Plan Patient is medically stable to participate in therapy May be discharged to rehab when appropriate by orthopedics History of Present Illness Requesting Physician: Dr. Idris Yeh Reason for Consultation: Medical management Attending Physician: Idris Yeh, DO History of Present Illness This is a 46-year-old male with no significant medical history who presents to the hospital on account of lumbar disc herniation with radiculopathy, and is now status post lumbar decompression with bilateral medial fasciotomies and foraminotomies, posterior spinal fusion surgery. Internal medicine has been consulted for medical management. Patient currently has a LISETH drain, vital signs stable blood pressure 135/79, pulse 78 temperature 97.5 saturating well on room air. Allergies Allergy/AdvReac Type Severity Reaction Status Date / Time metoprolol Allergy Mild RASH Verified 11/09/19 22:42 propoxyphene Allergy Mild ITCHY Verified 11/09/19 22:42 acetaminophen AdvReac Mild SICK TO Verified 11/09/19 22:42 STOMACH tramadol AdvReac Unknown headache Verified 11/09/19 22:42 prednisone AdvReac Chest Pain Verified 11/09/19 22:42 Home Medications Medication Instructions Recorded Confirmed Type gabapentin 600 mg tablet 1,200 mg PO TID 11/06/19 10/02/21 History Medical Marijuana 0 unit .UD PRN Pain 11/09/19 10/02/21 History simvastatin 40 mg tablet 40 mg PO QPM 11/09/19 10/02/21 History acetaminophen 300 mg-codeine 30 mg 1 tab PO Q8H PRN Pain 09/24/21 10/02/21 History tablet fluticasone propionate 50 1 spray intranasal QAM 09/24/21 10/02/21 History mcg/actuation nasal spray,suspension latanoprost 0.005 % eye drops 1 drp ophthalmic (eye) PM 09/24/21 10/02/21 History naproxen sodium 220 mg tablet 220 mg PO Q8H PRN Pain 09/24/21 10/02/21 History (Aleve) oxycodone 5 mg tablet 5 mg PO Q6H PRN pain, severe #30 10/03/21 Rx tabs Patient History Medical History Back pain, chronic Cervical radiculopathy Degenerative disc disease Dyslipidemia Glaucoma History of anesthesia reaction Can be combative ..needs quiet calm environment Medical marijuana use Obesity Psoriasis Sleep apnea Noncompliant with CPAP Tobacco abuse Torticollis Surgical History History of arthroscopy of left shoulder History of meniscectomy of left knee Hx of cervical discectomy C6-C7 - Dr. 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 Physical Exam Physical Exam: The patient is awake, alert and oriented 3, well developed and well nourished, normocephalic and atraumatic, lying in bed and in no acute distress. HEENT--PERRL, EOMI, mucous membranes and oropharynx mildly dry Neck--supple. No JVD. No bruits. Thyroid normal, trachea midline, no adenopathy. Heart--normal S1 and S2. No murmurs, rubs or gallops. Lungs--clear bilaterally, no respiratory distress, no accessory muscle use. Abdomen--normal bowel sounds and soft. Mild epigastric and left sided abdominal pain Extremities--no cyanosis or clubbing. No edema. Dermatologic--normal skin turgor, normal color, no abnormal lymph nodes, no rash. Neurologic--cranial nerves II through XII grossly intact. Rheumatologic--normal range of motion. Psychiatric--normal affect. Results & Data ([facility]) Vital Signs (Past 12 Hours) Vital Signs Temp Pulse Resp BP Pulse Ox O2 Del Method 10/03/21 11:04 97.5 F L 78 14 135/79 93 Room Air 10/03/21 08:00 Room Air 10/03/21 06:53 97.9 F 69 18 137/73 91 Room Air
[2021-10-03] MEDS: NICOTINE 21 MG/24 HR TDSY TD SCH (18:17)
[2021-10-03] MEDS: DOCUSATE SODIUM/SENNA 50/8.6MG TAB PO SCH (20:05)
[2021-10-03] MEDS: SIMVASTATIN 40 MG TAB PO SCH (20:05)
[2021-10-03] MEDS: LATANOPROST 0.005% OP SOLN 2.5 ML BTL OP SCH (20:05)
[2021-10-04] MEDS: oxyCODONE HCL IR 5 MG TAB (IMMEDIATE RELEASE) PO PRN ×3 (00:01→10:13)
[2021-10-04] MEDS: POLYETHYLENE (MIRALAX) 17 GM PACK PO SCH ×2 (00:01→10:29)
[2021-10-04] MEDS: GABAPENTIN 600 MG TAB PO SCH (08:25)
[2021-10-04] MEDS: dexAMETHasone 6 MG in SYRINGE 0 ML IV SCH (08:26)
[2021-10-04] MEDS: FLUTICASONE PROPIONATE NA SPR 16 GM BTL SCH (08:26)
--- NOTE | 2021-10-04 12:10 | Discharge Summary ---
Date of Service October 04, 2021 Admission HPI Per Admitting Provider This is a 46-year-old male known to me presents with chronic persistent back and leg pain after failed course of nonoperative care is here for surgical invention. Principal Diagnosis Lumbar disc condition with radiculopathy Discharge Data Allergies Allergy/AdvReac Type Severity Reaction Status Date / Time metoprolol Allergy Mild RASH Verified 11/09/19 22:42 propoxyphene Allergy Mild ITCHY Verified 11/09/19 22:42 acetaminophen AdvReac Mild SICK TO Verified 11/09/19 22:42 STOMACH tramadol AdvReac Unknown headache Verified 11/09/19 22:42 prednisone AdvReac Chest Pain Verified 11/09/19 22:42 Consultations 10/02/21 16:15 Consult Hospitalist Routine Procedures Performed Operation Date: 10/02/21 12:25 Actual Procedures p Left L3-L4 Decompression and Fusion(Not Applicable) - Idris Yeh DO Ordered Studies 10/02/21 12:25 [place] lumbar spine 2-3V Routine Hospital Course (1) Lumbar disc herniation with radiculopathy: Patient with lumbar decompression fusion tolerated this well was taken to orthopedic for possibly. Postop day 1 he was up and ambulating he progressed to postop day #2 back pain controlled. Excellent strength testing. LISETH drain decreasing appropriately. Subsequently was discharged home. Discharge orders instructions from the chart for further review. Total Time Total Time Spent Total Time Spent (In Minutes): 20 minutes Discharge Plan Discharge Items Patient Disposition: Home - Self-Care Reason For Visit: Intervertebral Disorders with Radiculopathy, Lumbo Discharge Diagnosis: Lumbar spinal stenosis with herniated was pulposis Activity: As commented below Non-emergency contact: Primary Care Provider Call non-emergency contact if: you have any medication questions Follow-up/Referrals: Blaze Lee [Primary Care Provider] - Diet: Regular Addtl Attending Provider Instructions: ACTIVITY RECOMMENDATIONS: SELF CARE INSTRUCTIONS AFTER THORACIC/LUMBAR FUSIONS 1. You may walk to your tolerance. It is good exercise for your legs and back. Expect some back and intermittent leg aches and pains. 2. You may perform "counter-top" level activities (make a sandwich, nereyda with a project, etc.). 3. No bending or lifting of more than 10 pounds or back twisting of any nature (roll like a log when turning in bed). 4. You may ride in a car for 20-30 minutes at a time. No driving until after your first visit with your doctor. 5. Frequent changes of position and restricting sitting to 30 minutes at a time will help limit the amount of back spasms and stiffness you may experience. 6. You may discontinue the use of ambulatory aids (cane, crutches, etc.) once your strength and confidence allow. 7. You may armature winder repair helper the shower and let water strike your incision when you arrive home at least once daily. Do not take a tub bath, sit in a hot tub or go into a swimming pool until after your first recheck in the office. SPECIAL CARE INSTRUCTIONS: VERY IMPORTANT TO READ AND REVIEW A. Your surgical incision has been closed with a cosmetic suture under the skin that will dissolve in about 6 weeks. In 14 days, you can use a pair of clean scissors and cut the suture that is left outside of the skin at the ends of your incision. 1. The small skin tapes can be removed 7 days after surgery if they have not fallen off by that point. 2. You may keep the wound open to air as much as possible to promote healing after post-op day number 5 unless told otherwise by your doctor. 3. If you think the wound looks like it is becoming infected (redness or worsening drainage) and/or you are experiencing fever, chill or worsening back pain and muscle spasms, contact the office so that we may evaluate you as soon as possible. B. Complications are uncommon, but please contact us if you have any signs or symptoms of: 1. wound infection (fever higher than 102.5 degrees F, redness, separation of wound, drainage, or increasing pain from the incision) 2. blood clots in legs (pain, swelling, redness and warmth in legs) 3. urinary tract infection (fever higher than 102.5 degrees F, burning upon urination or increased frequency of urination) 4. nerve problems (inability to walk on your toes or heels, numbness, loss of bowel or bladder control) 5. any other symptoms that concern you C. Please call the office at if you have any concerns or questions about your operation or recovery. D. No smoking! Smoking drastically decreases the chance of a solid fusion. E. Do not take any anti-inflammatory medications (Indocin, Advil, Motrin, Aspirin, Naprosyn, etc.) as these may inhibit the chance of a solid fusion. Tylenol is okay to take for pain. MANAGING PAIN AFTER SPINAL SURGERY 1. Narcotic medication is intended for short-term use and will be provided for surgical pain. Surgical pain usually lasts for a period of 4-6 weeks. Narcotic medication includes Percocet, Vicodin, Darvocet, Tylenol #3 or Lortab. 2. Longer-term pain is more appropriately treated with non-narcotic medication such as Tylenol ES. 3. Muscle spasm is not appropriately treated with narcotics. Muscle relaxers such as Soma, Flexeril or Skelaxin can be used along with Tylenol ES. 4. Remember that we all live with some "aches and pains". This is not unusual or uncommon after an injury or as we get older. a. Back pain is expected and may include muscle spasms for 4 to 6 weeks after surgery. The pain should gradually improve. If the pain worsens for no apparent reason, please contact the office. b. Intermittent leg pain may also be experienced and should not be concerned about unless it worsens for no apparent reason. If so, please contact the office. 5. We will provide appropriate medication within the normal guidelines of their prescribed use. We will also be very cautious and aware of potential abuse and extended duration of patients' medication needs. a. Pain medications are for your comfort and to assist with sleep and rest so that the tissue can heal. They are not provided in order to return to normal activity and should not be used through the day. To do so or worsening pain at night can result from ongoing tissue damage and development of tolerance to the prescribed medicine. 6. Please allow 2-3 days to process refills. Prescriptions will not be mailed but must be picked up at the office. FOLLOW UP VISIT: Keep your scheduled follow-up appointment. Any questions, please call the office at . Pending Studies at Discharge: No Stand-Alone Forms: [employer], Smoking Cessation Medications and DC Order Prescriptions: New oxycodone 5 mg tablet 5 mg PO Q6H PRN (Reason: pain, severe) Qty: 30 0RF Continued gabapentin 600 mg tablet 1,200 mg PO TID simvastatin 40 mg tablet 40 mg PO QPM Medical Marijuana 0 unit .UD PRN (Reason: Pain) Rx Instructions: MULTIPLE FORMS/ROUTES acetaminophen-codeine 300-30 mg Tablet 1 tab PO Q8H PRN (Reason: Pain) fluticasone propionate 50 mcg/actuation [place],Suspension 1 spray INTRANASAL QAM naproxen sodium [Aleve] 220 mg Tablet 220 mg PO Q8H PRN (Reason: Pain) latanoprost 0.005 % Drops 1 drp OPHTHALMIC (EYE) PM Discharge Orders: Discharge Order (Routine); Ordered 10/04/21 Ordered By: Idris Yeh Admission Data Admit Date/Time: 10/02/21 14:34 Attending Provider: Idris Yeh Admit Provider: Idris Yeh Primary Care Provider: Blaze Lee Other Providers: Demetris Bello
== END 2021-10-04 14:25 | disposition home or self-care (01) | DRG 455 ==
LOC: ASU 11:10 → 3E 14:34 → SUATTDRO 14:34

== ENCOUNTER 2022-11-27 22:44 | Observation (INO) ==
--- NOTE | 2022-11-27 23:46 | Emergency Department Note ---
History of Present Illness General Chief complaint: Back Injury/Pain Stated complaint: BACK PAIN Time Seen by Provider: 11/27/22 23:41 History of Present Illness Maximum Pain Intensity: 10 This 47-year-old male patient presents to the emergency department with his for evaluation of severe lower back pain that radiates into his bilateral buttocks and down his legs. He states that his feet also feel like they are on fire and almost feel numb. He is having trouble moving his legs and walking because of the pain. Denies any loss of control of his bowel or bladder functions. Denies any saddle paresthesias. Symptoms started yesterday and have progressively gotten worse. He rates his discomfort as 10/10. The patient has a history of chronic back pain as well as previous back surgery. No new injury or trauma. He states that he was told he needs to stop smoking before he is able to have spinal surgery, but has been having trouble quitting smoking. He has decreased his smoking from 1 pack/day down to half a pack per day. He states that the pain is similar to his chronic pain, but more severe than usual. Has been taking oxycodone, gabapentin, and Aleve without improvement of his symptoms. He does not feel that he can manage his symptoms at home at this time. He was seen in the emergency department on 09/29/2022 as well as 10/06/2022 for similar symptoms with MRIs of the lumbar and cervical spine performed. Dr. Yeh of spinal surgery was contacted during the ER visit on 10/06/22 and he did not feel the patient required any urgent or emergent treatment and recommended outpatient follow-up. He last saw Dr. Yeh about 1 month ago after he was seen in the ER per patient. Has done outpatient PT 3 different times without improvement. MRI of the lumbar spine on 09/29/2022 showed: 1. The patient has undergone instrumentation, laminectomy, and fusion of L3-4 since the comparison examination. The previously seen disc herniation at that level has resolved. 2. At L2-3 there is 3-4 mm broad-based posterior disc bulge as well as bright T2 signal along the posterior disc annulus consistent with an annular tear. There is a 4 mm right paramidline disc herniation extending 8 mm superiorly. The thecal sac measures lower limits of normal at 10 mm. There is moderate bilateral neural foraminal narrowing. 3. At L4-5 there is 3-4 mm broad-based posterior disc bulge mildly narrowing the thecal sac to 9 mm. There is moderate left and mild right moderate neural foraminal narrowing. 4. At L5-S1 there is 3-4 mm broad-based posterior disc bulge. There is an annular tear to the right with disc bulge extending into the right lateral recess and neural foramen causing moderate to severe right neural foraminal narrowing. MRI of the cervical spine on 10/06/2022 showed: 1. Severely motion compromised examination. 2. Spondylotic and postsurgical change as above. The central canal appears clear. See discussion for detailed level by level analysis. 3. The cervical cord is normal in morphology and signal intensity. Home Medications Medication Instructions Recorded Confirmed Type gabapentin 600 mg tablet 1,200 mg PO TID 11/06/19 11/28/22 History Medical Marijuana 0 unit DIRECTED PRN Pain 11/09/19 11/28/22 History simvastatin 40 mg tablet 40 mg PO QPM 11/09/19 11/28/22 History latanoprost 0.005 % eye drops 1 drp ophthalmic (eye) PM 09/24/21 11/28/22 History naproxen sodium 220 mg tablet 220 mg PO TID PRN Pain 10/06/22 11/28/22 History (Aleve) Allergies Allergy/AdvReac Type Severity Reaction Status Date / Time metoprolol Allergy Intermediate RASH Verified 05/03/22 20:28 propoxyphene Allergy Intermediate ITCHY Verified 05/03/22 20:28 acetaminophen AdvReac Intermediate SICK TO Verified 05/03/22 20:28 STOMACH prednisone AdvReac Intermediate Chest Pain Verified 05/03/22 20:28 tramadol AdvReac Intermediate headache Verified 05/03/22 20:28 Past Med/Surg History Medical History Acute hypoxemic respiratory failure Back pain, chronic Cervical radiculopathy Degenerative disc disease Dyslipidemia Encounter for pre-operative examination Glaucoma Hematoma History of anesthesia reaction Can be combative ..needs quiet calm environment Medical marijuana use Obesity Psoriasis Sleep apnea Noncompliant with CPAP Tobacco abuse Torticollis Surgical History History of arthroscopy of left shoulder History of meniscectomy of left knee Hx of cervical discectomy C6-C7 - Dr. Yeh Family History Other Diabetes Social History Smoking Status: Current every day smoker Tobacco Type: Cigarettes Cigarettes Per Day: up to a pack/day; Second Hand Exposure: No; Do You Dip or Chew Tobacco: No; Hx Alcohol Use: Yes Alcohol type: hard liquor Hx Substance Use: Yes Last Used Substance: Hours (ago) Substance Use Type Oth er:: Medical marijuana - daily Preferred Language: Portuguese Communication Ability: Effective Floral Arranger Required: No Beliefs That Will Affect Care: None marital status: Current Living Situation: Spouse Feels Safe at Home: Yes Assistive Devices: Walker Review of Systems See HPI for pertinent positives & negatives. Physical Exam Vital Signs Vital Signs - 24 hr 11/27/22 22:46 11/28/22 00:44 11/28/22 01:39 Temperature 36.9 C Temperature Source Temporal Artery Scan Pulse Rate 73 Pulse Rate [Finger] 88 Pulse Rhythm Regular Pulse Strength Normal Respiratory Rate 20 19 Respiratory Effort / Characteristics Non-Labored Spontaneous Non-Labored Respiratory Depth Normal Normal Respiratory Pattern Regular Regular Blood Pressure 125/88 Blood Pressure [Right Arm] 143/89 H Blood Pressure Mean 100 Blood Pressure Mean [Right Arm] 107 Blood Pressure Position Sitting Pulse Oximetry 96 94 Oxygen Delivery Method Room Air Room Air Room Air Sepsis Recent Fever Within 48 Hours No Sepsis New/Unexplained Change in Mental Status N/A Sepsis Action Taken by Nursing No Action Required VITALS: Vitals are noted on the nurse's note and reviewed by myself. GENERAL: Appears in pain, but non toxic in appearance and in no acute distress. Non-diaphoretic. SKIN: The skin was without obvious rashes, erythema, edema, or bruising to the back. HEAD: Normocephalic atraumatic. EYES: Pupils equal round and reactive to light and accommodation. The Extraocular movements intact. NECK: Supple without nuchal rigidity. No significant cervical spine tenderness. No significant paraspinous muscle tenderness. No lymphadenopathy. HEART: Regular rate and rhythm without murmurs gallops or rubs. LUNGS: Clear to auscultation bilaterally without wheezes, rales or rhonchi. ABDOMEN: Positive bowel sounds x 4. Normal tympanic percussion. Soft, nontender, without masses or organomegaly. Quijano sign negative. MUSCULOSKELETAL: No muscle atrophy, erythema, or edema noted of the back. There is tenderness over the lumbar spinous processes mainly over the lower lumbar spine. There is also tenderness over the paraspinous muscles bilaterally. There is no tenderness over the thoracic spine or paraspinous muscles. There are mild muscle spasms present. The patient is slow to move around with maximum tenderness with flexion of the spine. Positive straight leg raise test bilaterally. The patient is able to move his bilateral lower extremities, but with significant discomfort. He does not have full range of motion of the bilateral extremities due to his pain. Strength is 2/5 in the lower extremities bilaterally prior to pain medication administration. Dorsalis pedis and posterior tibial pulses 2+ bilaterally. NEURO: Patient was alert and oriented to person place and time. The patient admits to decreased sensation to light and sharp touch in the bilateral lower extremities. Course Administered Medications Discontinued Medications Hydromorphone HCl (Hydromorphone Inj 1 Mg/Ml Syringe) 1 mg IV NOW STA Stop: 11/28/22 00:03 Last Admin: 11/28/22 00:55 Dose: 1 mg Documented By: ISRA Sodium Chloride (Nss) 1,000 mls @ 999 mls/hr IV .Q1H1M ONE Stop: 11/28/22 01:02 Last Admin: 11/28/22 00:56 Dose: 999 mls/hr Documented By: ISRA Ondansetron HCl (Ondansetron Inj 2 Mg/Ml 2 Ml Vial) 4 mg IV NOW STA Stop: 11/28/22 00:03 Last Admin: 11/28/22 00:56 Dose: 4 mg Documented By: ISRA Medical Decision Making Differential Diagnosis Differential diagnosis includes strain/sprain, muscle spasm, disc herniation, fracture, subluxation, metastatic disease, cord compression, discitis, sciatica, cauda equina, conus medullaris syndrome, infection, epidural abscess, epidural hematoma, aortic disease, renal colic, UTI, pyelonephritis, gastrointestinal, as well as other pathologies. Laboratory Data Attestation: I reviewed the patient's lab results. 11/28/22 01:05 11/28/22 01:05 Lab Results 0911/28/22 11/28/22 Range/Units 01:05 01:05 01:05 WBC 9.07 (4.8-10.8) K/ul RBC 5.00 (4.70-6.10) M/uL Hgb 15.6 (14.0-18.0) g/dl Hct 44.0 (42.0-52.0) % MCV 88.0 (80.0-100.0) fL MCH 31.2 (25.0-34.0) pg MCHC 35.5 (32.0-36.0) g/dL RDW Std Deviation 42.1 (36.4-46.3) fL RDW Coeff of Renaldo 13.1 (11.5-14.5) % Plt Count 179 (130-400) K/uL MPV 10.9 (9.4-12.4) fL Immature Gran % (Auto) 0.2 % Neut % (Auto) 49.9 % Lymph % (Auto) 39.9 % Kane % (Auto) 6.6 % Eos % (Auto) 2.5 % Baso % (Auto) 0.9 % Neut # (Auto) 4.52 (1.40-6.50) K/uL Lymph # (Auto) 3.62 H (1.20-3.40) K/uL Kane # (Auto) 0.60 H (0.11-0.59) K/uL Eos # (Auto) 0.23 (0.00-0.50) K/uL Baso # (Auto) 0.08 (0.00-0.20) K/uL Immature Gran # (Auto) 0.02 (0.01-0.20) K/uL Sodium 139 (136-145) mmol/L Potassium 3.9 (3.5-5.1) mmol/L Chloride 109 H (98-107) mmol/L Carbon Dioxide 26 (21-32) mmol/L Anion Gap 4 (3-11) BUN 12 (6-23) mg/dl Creatinine 1.01 (0.6-1.4) mg/dl Est Cr Clr Drug Dosing Not Reportable Est GFR ( Amer) 101.5 ml/min Est GFR (Non-Af Amer) 87.5 ml/min BUN/Creatinine Ratio 11.9 (10-20) Glucose 93 (70-99(Fasting)) mg/dl Calcium 9.2 (8.6-10.3) mg/dl Total Bilirubin 0.4 (0.2-1.0) mg/dl AST 13 (13-39) U/L ALT 15 (7-52) U/L Alkaline Phosphatase 50 (34-104) U/L Total Protein 7.1 (6.0-8.3) gm/dl Albumin 4.5 (3.4-5.0) gm/dl Globulin 2.6 (2.5-4.0) gm/dl Albumin/Globulin Ratio 1.7 (0.9-2) Urine Color Yellow Urine Appearance Clear (Clear) Urine pH 5.5 (4.5-7.5) Ur Specific [place] 1.011 (1.000-1.030) Urine Protein Negative (Negative) Urine Glucose (UA) Negative (Negative) Urine Ketones Negative (Negative) Urine Blood Negative (Negative) Urine Nitrite Negative (Negative) Urine Bilirubin Negative (Negative) Urine Urobilinogen Negative (Negative) Ur Leukocyte Esterase Negative (Negative) MDM Narrative I examined the patient. I reviewed the patient's previous visits including his previous 2 MRIs as summarized above. The patient states that he is in significant pain and has tried all of his outpatient medication without improvement. He does not feel that he can manage his symptoms at home and feels that he needs to be admitted for pain control. The patient has decreased strength, range of motion, and sensation of the bilateral lower extremities, but does have significant disease noted on his previous MRI. He denies any loss of control of his bowel or bladder functions or saddle paresthesias. I spoke with Dr. Yeh of spinal surgery. He recommended getting a repeat MRI of the lumbar spine without contrast. He also advised that the patient can be admitted by medicine for pain control and he would see the patient in the mo rning. An IV lock was placed and labs were drawn. He was given 1 L normal saline solution bolus. He was also given Dilaudid 1 mg IV and Zofran 4 mg IV for pain. CBC and CMP were without significant abnormalities. Urinalysis was negative. I spoke with the on-call hospitalist who agreed to admit the patient for further management. Please refer to their dictation for further details. MRI of the lumbar spine with contrast was still pending at the time of admission. The patient's care was transferred in stable condition. Impression & Plan Lumbar disc herniation with radiculopathy, Sciatica Discharge Plan Visit Data Chief Complaint: Back Injury/Pain Stated Complaint: BACK PAIN ED Provider: Wayne Holt ED Midlevel Provider: Keshia Sewell Discharge Problem: Lumbar disc herniation with radiculopathy, Sciatica Patient Disposition: Admitted As Inpatient Condition: Good Discharge Instructions Interventions: ED Discharge Assessment Last Done: 11/28/22 01:39 Forms Stand Alone Forms: [facility] [email or web address] Prescriptions Prescriptions: No Action gabapentin 600 mg tablet 1,200 mg PO TID simvastatin 40 mg tablet 40 mg PO QPM Medical Marijuana 0 unit DIRECTED PRN (Reason: Pain) Rx Instructions: MULTIPLE FORMS/ROUTES latanoprost 0.005 % Drops 1 drp OPHTHALMIC (EYE) PM naproxen sodium [Aleve] 220 mg Tablet 220 mg PO TID PRN (Reason: Pain) Rx Instructions: along with gabapentin Referrals Referrals: Blaze Lee [Primary Care Provider] -
[2022-11-28] MEDS ORDERED: HYDROmorphone INJ 1 MG/ML SYRINGE IV STA (00:02)
[2022-11-28] MEDS ORDERED: ONDANSETRON INJ 2 MG/ML 2 ML VIAL IV STA (00:02)
[2022-11-28] MEDS ORDERED: SODIUM CHLORIDE 0.9% 1,000 ML IV ONE (00:02)
--- NOTE | 2022-11-28 00:15 | History & Physical Report ---
Date of Service November 28, 2022 Assessment & Plan (1) Lumbar disc herniation with radiculopathy: Plan: 47yo male presenting with acute worsening of chronic back pain, bilateral LE weakness, tingling. No trauma or fever. -Admit to medical -Tylenol 1gm po TID scheduled -Heating pad -Toradol 15mg IV q 6 hours -Flexeril 5mg po BID -Morphine as needed for pain -Continue home Neurontin 1200mg po TID -MRI ordered in ER - pending study -Ortho-Spine consultation appreciated (2) Smoker: Plan: Patient trying to cut back on tobacco - he is down to 1/2 PPD -Nicotine TD (3) Dyslipidemia: Plan: Chronic. Stable -Continue Simvastatin 40mg po daily (4) Sleep apnea: Plan: Noncompliant with CPAP History of Present Illness Chief Complaint: back pain Primary Care Provider: Blaze Lee Manuel Apodaca is a 47yo male with chronic back pain presenting with severe, acute back pain. Patient reports that he tried to sit on the couch last night and developed severe acute low back pain with radiation into the buttocks bilaterally as well as leg weakness, numbness and tingling. He has pain in his anterior thighs bilaterally and the bottoms of his feet are more burning/tingling than usual. He denies changes in bowel habits but states that he feels some pressure in his bladder - he is able to pass urine without difficulty, no incontinence or retention. No trauma or fever. No recent activity to exacerbate his pain. In the ER he is afebrile, HD stable Allergies Allergy/AdvReac Type Severity Reaction Status Date / Time metoprolol Allergy Intermediate RASH Verified 05/03/22 20:28 propoxyphene Allergy Intermediate ITCHY Verified 05/03/22 20:28 acetaminophen AdvReac Intermediate SICK TO Verified 05/03/22 20:28 STOMACH prednisone AdvReac Intermediate Chest Pain Verified 05/03/22 20:28 tramadol AdvReac Intermediate headache Verified 05/03/22 20:28 Home Medications Medication Instructions Recorded Confirmed Type gabapentin 600 mg tablet 1,200 mg PO TID 11/06/19 11/28/22 History Medical Marijuana 0 unit DIRECTED PRN Pain 11/09/19 11/28/22 History simvastatin 40 mg tablet 40 mg PO QPM 11/09/19 11/28/22 History latanoprost 0.005 % eye drops 1 drp ophthalmic (eye) PM 09/24/21 11/28/22 History naproxen sodium 220 mg tablet 220 mg PO TID PRN Pain 10/06/22 11/28/22 History (Aleve) Past Med/Surg History Medical History Acute hypoxemic respiratory failure Back pain, chronic Cervical radiculopathy Degenerative disc disease Dyslipidemia Encounter for pre-operative examination Glaucoma Hematoma History of anesthesia reaction Can be combative ..needs quiet calm environment Medical marijuana use Obesity Psoriasis Sleep apnea Noncompliant with CPAP Tobacco abuse Torticollis Surgical History History of arthroscopy of left shoulder History of meniscectomy of left knee Hx of cervical discectomy C6-C7 - Dr. Yeh Family History Other Diabetes Social History Smoking Status: Current every day smoker Tobacco Type: Cigarettes Cigarettes Per Day: up to a pack/day; Second Hand Exposure: No; Do You Dip or Chew Tobacco: No; Hx Alcohol Use: Yes Alcohol type: hard liquor Hx Substance Use: Yes Last Used Substance: Hours (ago) Substance Use Type Other:: Medical marijuana - daily Preferred Language: Tajik Communication Ability: Effective Donor Relations Manager Required: No Beliefs That Will Affect Care: None marital status: Current Living Situation: Spouse Feels Safe at Home: Yes Assistive Devices: Walker Review of Systems Review of Systems: All systems reviewed & are unremarkable except as noted in HPI & below Physical Exam Physical Exam: General: patient resting comfortably, NAD, non-toxic in appearance, AA&O x 4 Skin: warm, dry, intact, no rashes or lesions HEENT: NC/AT, PERRL, EOMI, anicteric sclera, conjunctiva without injection, external ear normal to inspection and nontender, nares patent, moist mucus membranes, dentition intact, no oropharyngeal lesions, neck supple, trachea midline, no LAD, no thyromegaly, no JVD Heart: +S1/S2, regular, no m/r/g Lungs: equal air entry bilaterally, no rales/rhonchi/wheezes Abd: +BS, soft, NT/ND, no masses/organomegaly/ascites Ext: warm, 2+ pulses in UE/LE bilaterally, no clubbing/cyanosis or edema Neuro: diminished sensation to light touch in bilateral LE, thighs and anterior shins, reflexes intact Results & Data Results & Data Vital Signs (Past 12 Hours) Vital Signs Temp Pulse Resp BP Pulse Ox O2 Del Method 11/27/22 22:46 36.9 C 73 20 125/88 96 Room Air Laboratory Results Ordered Diagnostic Findings MRI ordered Exam(s): MRI L SPINE Without Contrast from 09/29/22 EXAM: MR Lumbar Spine Without Intravenous Contrast CLINICAL HISTORY: Reason for exam: severe pain, numbness. TECHNIQUE: Magnetic resonance images of the lumbar spine without intravenous contrast in multiple planes. COMPARISON: September 02, 2021 FINDINGS: Vertebrae: The patient is undergone instrumentation, laminectomy, and fusion of L3-4 since the comparison examination. The previously seen disc herniation at that level has resolved. No acute fracture. Spinal cord: Unremarkable. Normal signal. Soft tissues: Unremarkable. DISCS/SPINAL CANAL/NEURAL FORAMINA: L1-L2: Unremarkable. No significant disc disease. No stenosis. L2-L3: At L2-3 there is 3-4 mm broad-based posterior disc bulge as well as bright T2 signal along the posterior disc annulus consistent with an annular tear. There is a 4 mm right paramidline disc herniation extending 8 mm superiorly. The thecal sac measures lower limits of normal at 10 mm. There is moderate bilateral neural foraminal narrowing. L3-L4: See above. L4-L5: At L4-5 there is 3-4 mm broad-based posterior disc bulge mildly narrowing the thecal sac to 9 mm. There is moderate left and mild to moderate neural foraminal narrowing. L5-S1: At L5-S1 there is 3-4 mm broad-based posterior disc bulge. There is an annular tear to the right with disc bulge extending into the right lateral recess and neural foramen causing moderate to severe right neural foraminal narrowing. IMPRESSION: 1. The patient has undergone instrumentation, laminectomy, and fusion of L3-4 since the comparison examination. The previously seen disc herniation at that level has resolved. 2. At L2-3 there is 3-4 mm broad-based posterior disc bulge as well as bright T2 signal along the posterior disc annulus consistent with an annular tear. There is a 4 mm right paramidline disc herniation extending 8 mm superiorly. The thecal sac measures lower limits of normal at 10 mm. There is moderate bilateral neural foraminal narrowing. 3. At L4-5 there is 3-4 mm broad-based posterior disc bulge mildly narrowing the thecal sac to 9 mm. There is moderate left and mild right moderate neural foraminal narrowing. 4. At L5-S1 there is 3-4 mm broad-based posterior disc bulge. There is an annular tear to the right with disc bulge extending into the right lateral recess and neural foramen causing moderate to severe right neural foraminal narrowing. Electronically signed by: Jag Holman MD 09/30/22 00:44 AM Dictated:09/30/2243 Transcribed: 09/30/2243 PG Care Time/CCT Total # of Minutes Spent Total Time Spent with Patient: Total time spent is greater than 50% in coordination of care (as documented) at patient's floor/unit and/or counseling patient: Coding Level of Care Code 56178 INT INP/OBS CARE 2/55MIN Diagnoses Lumbar disc herniation with radiculopathy M51.16 Smoker F17.200 Dyslipidemia E78.5 Sleep apnea G47.30
[2022-11-28 01:29] LABS: Basophils # (auto) 0.08 K/uL (0.00-0.20); Basophils % (auto) 0.9 %; Eosinophils # (auto) 0.23 K/uL (0.00-0.50); Eosinophils % (auto) 2.5 %; Hemoglobin 15.6 g/dl (14.0-18.0); Immature Granulocytes # (auto) 0.02 K/uL (0.01-0.20); Immature Granulocytes % (auto) 0.2 %; Lymphocytes # (auto) 3.62 K/uL (1.20-3.40); Lymphocytes % (auto) 39.9 %; Mean Corpuscular Hemoglobin 31.2 pg (25.0-34.0); Mean Corpuscular Hgb Conc 35.5 g/dL (32.0-36.0); Mean Platelet Volume 10.9 fL (9.4-12.4); Monocytes % (auto) 6.6 %; Neutrophils # (auto) 4.52 K/uL (1.40-6.50); Neutrophils % (auto) 49.9 %; Platelet Count 179 K/uL (130-400); RDW Coefficient of Variation 13.1 % (11.5-14.5); RDW Standard Deviation 42.1 fL (36.4-46.3); White Blood Count 9.07 K/ul (4.8-10.8)
[2022-11-28 01:45] LABS: Appearance Urine Clear (Clear); Bilirubin Urine Negative (Negative); Blood Urine Negative (Negative); Color Urine Yellow; Glucose Urine UA Negative (Negative); Ketones Urine Negative (Negative); Leukocyte Esterase Urine Negative (Negative); Nitrite Urine Negative (Negative); Protein Urine Negative (Negative); Specific Gravity Urine 1.011 (1.000-1.030); Urobilinogen Urine Negative (Negative); pH Urine 5.5 (4.5-7.5)
[2022-11-28 01:47] LABS: Alanine Aminotransferase 15 U/L (7-52); Albumin Globulin Ratio 1.7 (0.9-2); Albumin Level 4.5 gm/dl (3.4-5.0); Alkaline Phosphatase 50 U/L (34-104); Anion Gap 4 (3-11); Aspartate Aminotransferase 13 U/L (13-39); BUN Creatinine Ratio 11.9 (10-20); Bilirubin,Total 0.4 mg/dl (0.2-1.0); Blood Urea Nitrogen 12 mg/dl (6-23); Calcium 9.2 mg/dl (8.6-10.3); Carbon Dioxide 26 mmol/L (21-32); Chloride 109 mmol/L (98-107); Est GFR (African American) 101.5 ml/min; Est GFR (Non-African American) 87.5 ml/min; Globulin 2.6 gm/dl (2.5-4.0); Glucose 93 mg/dl (70-99(Fasting)); Potassium 3.9 mmol/L (3.5-5.1); Sodium 139 mmol/L (136-145); Total Protein 7.1 gm/dl (6.0-8.3)
[2022-11-28] MEDS ORDERED: ONDANSETRON INJ 2 MG/ML 2 ML VIAL IV PRN (02:22)
[2022-11-28] MEDS ORDERED: DOCUSATE SODIUM 100 MG CAP PO PRN (02:22)
[2022-11-28] MEDS ORDERED: MoRPHine SULFATE 2 MG/ML CARP IV PRN ×2 (02:22→10:04)
[2022-11-28] MEDS: MoRPHine SULFATE 4 MG/ML 1 ML CARP\\VIAL IV PRN ×4 (02:33→20:41)
[2022-11-28] MEDS: D5W AND 1/2NSS 1,000 ML IV SCH ×2 (03:22→13:49)
[2022-11-28] MEDS: NICOTINE 14 MG/24 HR PATCH TD SCH (03:23)
--- NOTE | 2022-11-28 05:22 | Magnetic Resonance Report ---
Exam(s): MRI L SPINE Without Contrast EXAM: MR Lumbar Spine Without Intravenous Contrast CLINICAL HISTORY: Reason for exam: low back pain, weakness legs, paresthesias. TECHNIQUE: Magnetic resonance images of the lumbar spine without intravenous contrast in multiple planes. COMPARISON: Comparison made to prior MRI of the lumbar spine from September 29, 2022. FINDINGS: Vertebrae: There are 5 lumbar type vertebral bodies with a mild generalized curve to the right and shallow lumbar lordosis. There is normal vertebral body height and alignment. The bone marrow signal is normal. Patient is status post posterior decompression, interbody and posterior fusion of L3 and L4 with metallic intervertebral body fusion device in place. No evidence of surgical hardware complication. No acute fracture. Spinal cord: The conus is normal size, shape and signal characteristics, terminating at T12-L1. Soft tissues: There is mild atrophy of the iliopsoas, paraspinous and intraspinous musculature. The aorta and IVC flow voids are intact. The visualized kidneys are unremarkable. DISCS/SPINAL CANAL/NEURAL FORAMINA: L1-L2: The Intervertebral disc is normal. There is minimal to mild facet arthropathy with mild synovitis. L2-L3: There is mild disc degeneration with annular disc bulge asymmetric to the right causing a mild to subarticular recess stenosis without evidence of neural impingement. There is disc extending into the neuroforamina causing mild bilateral stenosis without evidence of neural impingement. There is minimal facet arthropathy with mild synovitis. L3-L4: There is an intervertebral fusion device in place with a residual annular disc bulge asymmetric to the right flattening the ventral thecal sac, with disc extending to the right neuroforamen causing mild stenosis without evidence of neural impingement. The facet joints are poorly visualized secondary to adjacent metallic artifact. L4-L5: There is mild disc degeneration with annular disc bulge and superimposed 3 mm central disc protrusion causing a mild subarticular recess stenosis, with disc and osteophyte extending into the neuroforamina causing mild bilateral stenosis without evidence of neural impingement. There is mild facet arthropathy with mild synovitis. L5-S1: There is mild disc degeneration with annular disc bulging asymmetric to the right and superimposed the 7 mm right disc protrusion posteriorly displacing and impinging the transiting right S1 nerve root. There is disc and osteophyte extending to the neuroforamina causing moderate bilateral stenosis with mild impingement on the L5 nerve root ganglia. There is minimal facet arthropathy with mild synovitis. IMPRESSION: 1. Mild disc degeneration at L2-3, L4-5 and L5-S1 with annular disc bulging and superimposed disc protrusions at L4-5 and L5-S1 causing a mild subarticular recess stenosis at L2-3 and L4-5, with posterior displacement and impingement of the transiting right S1 nerve root at L5- S1. There is a intervertebral body fusion device at L3-4 with residual annular disc bulge flattening the ventral thecal sac. 2. There is no spinal canal stenosis. 3. There is a mild bilateral L2-3, mild right L3-4, mild bilateral L4-5 and moderate bilateral L5-S1 neuroforaminal stenosis with mild impingement of the L5 nerve root ganglia. 4. There is minimal to mild facet arthropathy with mild synovitis. 5. No evidence of fracture, infection, tumor or arachnoiditis. Electronically signed by: Roxy Disla MD 11/28/22 05:21 AM
[2022-11-28] MEDS: ACETAMINOPHEN 500 MG TAB PO SCH ×3 (06:16→21:38)
--- NOTE | 2022-11-28 07:44 | Hospitalist Progress Note ---
Date of Service November 28, 2022 Assessment & Plan (1) Lumbar disc herniation with radiculopathy: Plan: 47yo male presenting with acute worsening of chronic back pain, bilateral LE weakness and tingling. No trauma or fever.- -Intractable Pain d/t lumbar disc herniation with radiculopathy -Start Toradol 15 mg IV q 6 hours and Morphine as needed AFTER Toradol, patient hasn't been receiving it and has only been on Morphine for pain management. -MRI Lumbar Spine done this morning -Continue home Neurontin 1200 m po TID -Patient with concomitant utilization of medical marijuana -Ortho-spine consultated, no plans for surgical manaagment at this time -Pain management consult appreciate recs. - Trial of duloxetine- 30mg, can titrate up overtime if helpful (2) Smoker: Plan: -Patient has been trying to cut back on tobacco and is down to 1/2 PPD -Nicotine TD (3) Dyslipidemia: Plan: -Chronic. Stable -Continue Simvastatin 40mg po daily (4) Sleep apnea: Plan: -Noncompliant with CPAP Admission and Anticipated Discharge Date Admission Date: November 28, 2022 Supervising Physician Co-Signing Physician Notes Attending attestation Pt seen and examined in concert with Dr. Cesar. In agreement with the documented findings as noted in the resident documentation with any exceptions or additions as noted here. Pain controlled on present regimen, though has been receving morphine instead of toradol, which was addressed and should improve use. On examination, S1/S2 nl RRR no MCG. CTAB. Abd NT/ND BS+ve. Str 5/5 bilateral LE on examination. Intractable pain in the setting of acute on chronic lower back pain - ortho spine and pain mgmt consult - encourage use of toradol prior to morphine to improve inflammation. Add duloxetine as noted. Else see resident documentation as noted. Mary Jackson is a 47 year-old male with a past medical history of cervical radiculopathy s/p C6-C7 cervical discectomy, chronic back pain s/p L3-L4 microdiscectomy and fusion, degenerative disc disease, and neuropathy admitted for a 2 day onset of severe and acute back pain. He was walking from the kitchen to his living room, sat down and suddenly developed severe lower back pain that radiates into his bilateral hips, buttocks, and down his legs. The pain is similar to his chronic pain, but this current episode is more severe. At home, he was taking Oxycodone, Gabapentin, Aleve, and medical marijuana without much improvement. He notes that the pain severity can vary and that initially it was a 10/10 in scale, while currently it is 7/10. Symptom severity appears to vary depending on postural changes, though he notes, laying on his L side appears to help provide relief. Meanwhile, physical activity and walking around appears to exacerbate his pain. He also complains of leg weakness, numbness described as a "burning sensation", and tingling that usually affects one leg at a time, but occasionally can affect both legs simultaneously depending on his posture. Patient states that his legs feel as if they are "300 lbs." He reports also experiencing burning and tingling in his feet and is experiencing a "pins and needles" sensation in his bilateral lower legs. He denies and urinary problems but notes an episode of loose stool yesterday. He denies any loss of control of his bowel or bladder functions. He denies and saddle paresthesias. No trauma or fever. He states that he was asked to stop smoking before he is able to have spinal surgery with Dr. Yeh but reports that it has been difficult for him to stop smoking. He has made great attempts and has cut back from 1.5 ppd to half ppd. He has a 45 pack-year history. Patient denies any fever, chills, shortness of breath, headache, nausea, and vomiting. He no longer drinks alcohol frequently and only drinks socially. He does smoke tobacco and has a 45 pack-year history though he has recently been cutting back and now smoking half ppd. Review of Systems Review of Systems: As per HPI. Physical Exam Physical Exam: Constitutional: well-appearing, no acute distress HEENT: NCAT, no conjunctival injection CV: regular rhythm, no murmur appreciated, extremities well-perfused, no LE edema Resp: CTABL, no wheezes/rales/rhonchi appreciated, no increased work of breathing MSK: no gross deformities appreciated Skin: warm, dry, no rash appreciated Neuro: alert, oriented, no focal neurologic deficit appreciated. Sensations intact. Strength 5/5 LE Results & Data Results & Data Vital Signs (Past 12 Hours) Vital Signs Temp Pulse Pulse Resp BP BP Pulse Ox 11/28/22 02:54 09/08/23 02:54 36.5 C 58 L 16 147/92 H 93 11/28/22 01:39 11/28/22 00:44 88 19 143/89 H 94 11/27/22 22:46 36.9 C 73 20 125/88 96 O2 Del Method 11/28/22 02:54 Room Air 11/28/22 02:54 Room Air 11/28/22 01:39 Room Air 11/28/22 00:44 Room Air 11/27/22 22:46 Room Air Diagnostic Findings Lumbar Spine MRI 11/28/2022: 1. Mild disc degeneration at L2-3, L4-5 and L5-S1 with annular disc bulging and superimposed disc protrusions at L4-5 and L5-S1 causing a mild subarticular recess stenosis at L2-3 and L4-5, with posterior displacement and impingement of the transiting right S1 nerve root at L5- S1. There is a intervertebral body fusion device at L3-4 with residual annular disc bulge flattening the ventral thecal sac. 2. There is no spinal canal stenosis. 3. There is a mild bilateral L2-3, mild right L3-4, mild bilateral L4-5 and moderate bilateral L5-S1 neuroforaminal stenosis with mild impingement of the L5 nerve root ganglia. 4. There is minimal to mild facet arthropathy with mild synovitis. 5. No evidence of fracture, infection, tumor or arachnoiditis. Resident Activity Tracking Resident Involvement: Resident Care Provided Care Provided: Adult Hospital Medicine
[2022-11-28] MEDS ORDERED: NICOTINE 14 MG/24 HR PATCH TD SCH (09:00)
[2022-11-28] MEDS: GABAPENTIN 600 MG TAB PO SCH ×3 (09:14→20:42)
[2022-11-28] MEDS: CYCLOBENZAPRINE HCL 5 MG TAB PO SCH ×2 (09:15→20:42)
[2022-11-28] MEDS: POLYETHYLENE (MIRALAX) 17 GM PACK PO SCH (09:16)
--- NOTE | 2022-11-28 12:25 | Pain Management Consultation ---
Date of Consultation November 28, 2022 Assessment & Plan (1) Postlaminectomy syndrome of lumbosacral region: (2) Radicular pain of both lower extremities: Plan 1. MRI findings were reviewed with patient as well as his symptomatic presentation discussed. It appears unlikely that pursuing interventional treatment would provide benefit at this time given his history of prior failure of multiple injections per his report as well as the resultant complaint of headache for 3 to 4 days after each of these procedures. Would defer further treatment to Dr. Yeh at this time regarding his potential for a surgical pathway. 2. Patient currently maximized on antineuropathic's with gabapentin at 1200 mg 3 times daily. Consider adding duloxetine due to his chronic low back pain comp laints 3. Patient reports prior history of side effects from steroid therapy therefore would defer recommending a trial of p.o. or IV steroids at this time 4. Patient will trial Toradol 15 mg IV every 6 hours as needed as written to assess efficacy 5. PDMP reviewed which reveals multiple prescriptions for Oxy IR over the past 6-8 months and a single prescription for Tylenol #3 and hydrocodone. Multiple prescribers noted as well. Patient with concomitant utilization of medical marijuana per report. Would recommend he establish care with single prescriber moving forward. Thank you for allowing us to participate in the care of Mr. Escalera. History of Present Illness Reason for Consultation: Acute on chronic low back pain and bilateral lower extremity pain Requesting Physician: Idris Yeh DO Attending Physician: George Boland MD History of Present Illness Mr. Escalera is a 47-year-old white male who presents for evaluation of acute on chronic low back pain and bilateral lower extremity pain. The patient has prior history of lumbar spine surgery with an L3-4 laminectomy and fusion with Dr. Yeh in September 2021. The patient reported symptomatic improvement lasting until approximately June 2022 when he developed recurrence of some low back and lower extremity pain. This pain has been progressive and increasing in frequency and severity over the past few months without known injury. 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 The patient indicates his pain is 50% axial in the thoracolumbar region extending into the lumbosacral region and 50% radicular traveling into the bilateral lower extremities to level the feet. He describes an intense heaviness affecting the thigh regions bilaterally with a burning characteristic pain below the level of the knee in a nondermatomal pattern affecting the feet as well. He has no true radicular pattern to his pain complaints. Patient has had multiple emergent evaluations over the past few months due to his pain complaints. He denies bowel or bladder incontinence or any saddle anesthesia. Patient reports that he did have a consultation scheduled with a neurosurgeon in [place], but he "could not take the pain" which led to this admission. He was utilizing oxycodone in the outpatient setting without relief of symptoms most recently prescribed by a Dr. Al Valdez from [facility]. Patient reports chronic utilization of gabapentin at 3600 mg daily. He reports prior history of multiple back injections without relief prior to his KOSTA procedures. He frequently developed headaches after these procedures. He finds little to no relief from use of opiates. He reports a history of chest pressure from prednisone as well as methylprednisolone. Patient has no further constitutional complaints. Plan of care discussed with Dr. Arianna Lopez. Pain Assessment Full Body Front + Back: 1. Axial thoracolumbar spine extending her lumbosacral spine 2. Nondermatomal lower extremity pain and paresthesia 3. Nondermatomal lower extremity pain and paresthesia Pain scale - at its best (0-10): 4 Pain scale - at its worst (0-10): 8 Allergies Allergy/AdvReac Type Severity Reaction Status Date / Time metoprolol Allergy Intermediate RASH Verified 05/03/22 20:28 propoxyphene Allergy Intermediate ITCHY Verified 05/03/22 20:28 acetaminophen AdvReac Intermediate SICK TO Verified 05/03/22 20:28 STOMACH prednisone AdvReac Intermediate Chest Pain Verified 05/03/22 20:28 tramadol AdvReac Intermediate headache Verified 05/03/22 20:28 Home Medications Medication Instructions Recorded Confirmed Type gabapentin 600 mg tablet 1,200 mg PO TID 11/06/19 11/28/22 History Medical Marijuana 0 unit DIRECTED PRN Pain 11/09/19 11/28/22 History simvastatin 40 mg tablet 40 mg PO QPM 11/09/19 11/28/22 History latanoprost 0.005 % eye drops 1 drp ophthalmic (eye) PM 09/24/21 11/28/22 History naproxen sodium 220 mg tablet 220 mg PO TID PRN Pain 10/06/22 11/28/22 History (Aleve) Pain History Pain Intensity Pain scale - at its best (0-10): 4 Pain scale - at its worst (0-10): 8 Patient History Medical History (Updated 11/28/22 @ 12:20 by Andrei Cohen PA-C) Acute hypoxemic respiratory failure Back pain, chronic Cervical radiculopathy Degenerative disc disease Dyslipidemia Encounter for pre-operative examination Glaucoma Hematoma History of anesthesia reaction Can be combative ..needs quiet calm environment Medical marijuana use Obesity Postlaminectomy syndrome of lumbosacral region Psoriasis Radicular pain of both lower extremities Sleep apnea Noncompliant with CPAP Tobacco abuse Torticollis Surgical History History of arthroscopy of left shoulder History of meniscectomy of left knee Hx of cervical discectomy C6-C7 - Dr. Yeh Family History Other Diabetes Social History Smoking Status: Current every day smoker Tobacco Type: Cigarettes Cigarettes Per Day: 1/2 pack; Second Hand Exposure: No; Do You Dip or Chew Tobacco: No; Tobacco Cessation Education Requested by Patient: No Hx Alcohol Use: Yes Alcohol type: hard liquor Hx Substance Use: Yes Last Used Substance: Just Prior to Arrival Substance Use Type Other:: medical marijuana for pain control. daily use Preferred Language: Italian Communication Ability: Effective It Security Consulting Director Required: No Beliefs That Will Affect Care: None marital status: Current Living Situation: Spouse Current Living Situation Comment: and 12 year old daughter Other Information That Helps Us Care for You: No Feels Safe at Home: Yes Safety Concerns: Feels Safe At This Time Assistive Devices: Cane Assistive Devices Comment: Cane occasionally when having increased pain Physical Exam Physical Exam: General: Patient lying on his right side quietly in exam room in no acute distress. Speech and thought process appropriate. Mood and affect appropriate. Cognition intact. Head: Normocephalic and atraumatic. ENT: No evidence of nasal or oral mucosal lesions. Mucous membranes are moist. Eyes: Pupils equal round reactive to light. Neck: Supple without adenopathy and full range of motion. Abdomen: Soft and nondistended. No organomegaly. Bowel sounds active. Back/spine: Patient able to logroll towards his right side for visual inspection and exam of lumbar spine. Patient has well-healed midline surgical incision over the upper-mid lumbar spine. Patient is minimally tender in the left greater than right mid-lumbar paravertebral musculature. Minimal spasm. He has no focal midline or facet joint tenderness to provocative testing. No focal SI joint tenderness to provocative testing. Nontender throughout the gluteal musculature. Lower extremities: SLR increased axial low back pain extending into the thighs bilaterally. Strength testing 5/5 with dorsi and plantarflexion. Patient hesitant to perform any resisted hip flexion or extension due to increased axial pain complaint. Sensation with some scattered dysesthesias in nondermatomal patterns affecting the thighs, pretibial and feet. Babinski downgoing bilaterally. Neurologic: Cranial nerves grossly intact. Ambulatory function not witnessed. Results (Pain Clinic) Diagnostic Review MRI Findings: [place], [place] [phone] Magnetic Resonance Report Patient:SHANE ESCALERA Admit Date:11/28/22 MR#:[id number] Address1:[address] [place] [address] Acct ID:[id number] Address2: Date:1975 [facility] Zip:[place] [address] Age:47 Location:3N Sex:M Room/Bed:N383 Att Phy:Lizbeth Holman D.O. Diagnosis:BACK PAIN [place] Phy:Blaze Lee PA-C Service Date:11/28/22 [facility] Phy: Interpreting Phy:Roxy Disla [facility] Phy:Lizbeth Holman D.O. Ordering Phy:Keshia Sewell PA-C cc: ~ Exam(s): MRI L SPINE Without Contrast EXAM: MR Lumbar Spine Without Intravenous Contrast CLINICAL HISTORY: Reason for exam: low back pain, weakness legs, paresthesias. TECHNIQUE: Magnetic resonance images of the lumbar spine without intravenous contrast in multiple planes. COMPARISON: Comparison made to prior MRI of the lumbar spine from September 29, 2022. FINDINGS: Vertebrae: There are 5 lumbar type vertebral bodies with a mild generalized curve to the right and shallow lumbar lordosis. There is normal vertebral body height and alignment. The bone marrow signal is normal. Patient is status post posterior decompression, interbody and posterior fusion of L3 and L4 with metallic intervertebral body fusion device in place. No evidence of surgical hardware complication. No acute fracture. Spinal cord: The conus is normal size, shape and signal characteristics, terminating at T12-L1. Soft tissues: There is mild atrophy of the iliopsoas, paraspinous and intraspinous musculature. The aorta and IVC flow voids are intact. The visualized kidneys are unremarkable. DISCS/SPINAL CANAL/NEURAL FORAMINA: L1-L2: The Intervertebral disc is normal. There is minimal to mild facet arthropathy with mild synovitis. L2-L3: There is mild disc degeneration with annular disc bulge asymmetric to the right causing a mild to subarticular recess stenosis without evidence of neural impingement. There is disc extending into the neuroforamina causing mild bilateral stenosis without evidence of neural impingement. There is minimal facet arthropathy with mild synovitis. L3-L4: There is an intervertebral fusion device in place with a residual annular disc bulge asymmetric to the right flattening the ventral thecal sac, with disc extending to the right neuroforamen causing mild stenosis without evidence of neural impingement. The facet joints are poorly visualized secondary to adjacent metallic artifact. L4-L5: There is mild disc degeneration with annular disc bulge and superimposed 3 mm central disc protrusion causing a mild subarticular recess stenosis, with disc and osteophyte extending into the neuroforamina causing mild bilateral stenosis without evidence of neural impingement. There is mild facet arthropathy with mild synovitis. L5-S1: There is mild disc degeneration with annular disc bulging asymmetric to the right and superimposed the 7 mm right disc protrusion posteriorly displacing and impinging the transiting right S1 nerve root. There is disc and osteophyte extending to the neuroforamina causing moderate bilateral stenosis with mild impingement on the L5 nerve root ganglia. There is minimal facet arthropathy with mild synovitis. IMPRESSION: 1. Mild disc degeneration at L2-3, L4-5 and L5-S1 with annular disc bulging and superimposed disc protrusions at L4-5 and L5-S1 causing a mild subarticular recess stenosis at L2-3 and L4-5, with posterior displacement and impingement of the transiting right S1 nerve root at L5- S1. There is a intervertebral body fusion device at L3-4 with residual annular disc bulge flattening the ventral thecal sac. 2. There is no spinal canal stenosis. 3. There is a mild bilateral L2-3, mild right L3-4, mild bilateral L4-5 and moderate bilateral L5-S1 neuroforaminal stenosis with mild impingement of the L5 nerve root ganglia. 4. There is minimal to mild facet arthropathy with mild synovitis. 5. No evidence of fracture, infection, tumor or arachnoiditis. Electronically signed by: Roxy Disla MD 11/28/22 05:21 AM Dictated:11/28/22520 Transcribed: 11/28/22520 Previous Records Review Previous Records: personally reviewed by me
[2022-11-28] MEDS: KETOROLAC TROMETHAMINE 15 MG/ML VIAL IV PRN ×2 (12:48→19:37)
--- NOTE | 2022-11-28 13:27 | Orthopedic Consultation ---
Date of Consultation November 28, 2022 Assessment & Plan (1) Radicular pain of both lower extremities: MRI lumbar spine performed yesterday and compared to one performed a week ago continues to demonstrate multilevel disc protrusions at L2-L3 L4-L5 L5-S1. There is instrumented fusion L3-L4. I do not appreciate severe neural compression. He does have canal compromise most impressive at L2-L3 but still moderate in nature. I discussed these findings with the patient. I am not able to explain his profound presentation based on his current imaging. I will obtain some blood test for inflammation. Also obtain an MRI of the thoracic spine to rule out cord compression not appreciated on his cervical and lumbar images. He is scheduled for a second opinion in [place]. I recommend that he pursue another opinion in this matter. I am hesitant to recommend any surgery at this time. History of Present Illness Reason for Consultation: Patient complaining of worsening back and bilateral leg pain. Denies any precipitating trauma fall or event. He states he was simply sitting in a chair and went to get up and had acute exacerbation of symptoms. He states he has difficulty with ambulation secondary to pain. Denies any loss of bowel or bladder control. Attending Physician: Keegan Boland MD Allergies Allergy/AdvReac Type Severity Reaction Status Date / Time metoprolol Allergy Intermediate RASH Verified 05/03/22 20:28 propoxyphene Allergy Intermediate ITCHY Verified 05/03/22 20:28 acetaminophen AdvReac Intermediate SICK TO Verified 05/03/22 20:28 STOMACH prednisone AdvReac Intermediate Chest Pain Verified 05/03/22 20:28 tramadol AdvReac Intermediate headache Verified 05/03/22 20:28 Home Medications Medication Instructions Recorded Confirmed Type gabapentin 600 mg tablet 1,200 mg PO TID 11/06/19 11/28/22 History Medical Marijuana 0 unit DIRECTED PRN Pain 11/09/19 11/28/22 History simvastatin 40 mg tablet 40 mg PO QPM 11/09/19 11/28/22 History latanoprost 0.005 % eye drops 1 drp ophthalmic (eye) PM 09/24/21 11/28/22 History naproxen sodium 220 mg tablet 220 mg PO TID PRN Pain 10/06/22 11/28/22 History (Aleve) Patient History Medical History (Updated 11/28/22 @ 12:20 by Andrei Cohen PA-C) Acute hypoxemic respiratory failure Back pain, chronic Cervical radiculopathy Degenerative disc disease Dyslipidemia Encounter for pre-operative examination Glaucoma Hematoma History of anesthesia reaction Can be combative ..needs quiet calm environment Medical marijuana use Obesity Postlaminectomy syndrome of lumbosacral region Psoriasis Radicular pain of both lower extremities Sleep apnea Noncompliant with CPAP Tobacco abuse Torticollis Surgical History History of arthroscopy of left shoulder History of meniscectomy of left knee Hx of cervical discectomy C6-C7 - Dr. Yeh Family History Other Diabetes Social History Smoking Status: Current every day smoker Tobacco Type: Cigarettes Cigarettes Per Day: 1/2 pack; Second Hand Exposure: No; Do You Dip or Chew Tobacco: No; Tobacco Cessation Education Requested by Patient: No Hx Alcohol Use: Yes Alcohol type: hard liquor Hx Substance Use: Yes Last Used Substance: Just Prior to Arrival Substance Use Type Other:: medical marijuana for pain control. daily use Preferred Language: Ethiopian Communication Ability: Effective Burlesque Dancer Required: No Beliefs That Will Affect Care: None marital status: Current Living Situation: Spouse Current Living Situation Comment: and 12 year old daughter Other Information That Helps Us Care for You: No Feels Safe at Home: Yes Safety Concerns: Feels Safe At This Time Assistive Devices: Cane Assistive Devices Comment: Cane occasionally when having increased pain Physical Exam Physical Exam: On exam he is alert and cooperative. He is in obvious distress with motion of his lower extremities and attempts at hip flexion and muscle testing. His strength does appear to be symmetric and intact. Sensory appears to be symmetric and intact. Deep tendon reflexes diminished. Results & Data Vital Signs (Past 12 Hours) Vital Signs Temp Pulse Resp BP Pulse Ox O2 Del Method 11/28/22 07:19 36.6 C 55 L 15 128/90 97 Room Air 11/28/22 02:54 Room Air 11/28/22 02:54 36.5 C 58 L 16 147/92 H 93 Room Air 11/28/22 01:39 Room Air
[2022-11-28 14:50] LABS: C Reactive Protein < 0.50 mg/dl (0-0.5)
[2022-11-28] MEDS: LATANOPROST 0.005% OP SOLN 2.5 ML BTL OP SCH (20:42)
[2022-11-28] MEDS: SIMVASTATIN 40 MG TAB PO SCH (20:43)
--- NOTE | 2022-11-29 02:09 | Magnetic Resonance Report ---
Exam(s): MRI T SPINE Without Contrast EXAM: MR Thoracic Spine Without Intravenous Contrast CLINICAL HISTORY: Reason for exam: back and leg pain. TECHNIQUE: Magnetic resonance images of the thoracic spine without intravenous contrast in multiple planes. COMPARISON: No relevant prior studies available. FINDINGS: Vertebrae: Unremarkable. No acute fracture. Discs/spinal canal/neural foramina: There is a small central disc extrusion at T3-4 flattening the ventral cord. No acute findings. No significant disc disease. No spinal canal stenosis. Spinal cord: Unremarkable. Normal signal. Soft tissues: Unremarkable. IMPRESSION: No evidence of acute thoracic spine pathology. Electronically signed by: Roxy Disla MD 11/29/22 02:08 AM
[2022-11-29] MEDS: KETOROLAC TROMETHAMINE 15 MG/ML VIAL IV PRN ×3 (05:49→21:02)
[2022-11-29] MEDS: ACETAMINOPHEN 500 MG TAB PO SCH ×3 (05:50→21:28)
--- NOTE | 2022-11-29 07:21 | Hospitalist Progress Note ---
Date of Service November 29, 2022 Assessment & Plan (1) Lumbar disc herniation with radiculopathy: Plan: Pt is a 47 yo male presenting with acute worsening of chronic back pain, bilateral LE weakness and tingling. Intractable pain secondary to lumbar disc herniation with radiculopathy - ortho consulted; no surgical options recommended at this point - pain management consulted; start Toradol 15 mg IV q6hr and morphine 4 mg as needed AFTER toradol - toradol does not appear to be helping significantly but will continue for another day to see if there is any more benefit - continue home gabapentin 1200 mg PO TID and heat pad PRN; pt also uses medical cannabis at home - began trial of duloxetine 30mg this AM - PT consulted; if pain well controlled and pt functional, may discharge tomorrow - pt is following up outpatient in [place] for second opinion concerning treatment options HLD - continue simvastatin 40mg PO daily Sleep apnea - noncompliant with CPAP Hx of tobacco use - currently smokes 1/2 PPD - continue nicotine patch Diet: regular Code: full DVT ppx: low risk- if not discharged tomorrow, will add lovenox Dispo: med/surg, discharge possibly tomorrow (2) Smoker: (3) Dyslipidemia: (4) Sleep apnea: Admission and Anticipated Discharge Date Admission Date: November 28, 2022 Supervising Physician Co-Signing Physician Notes Attending attestation Pt seen and examined in concert with Dr. Dumont. In agreement with the documented findings as noted in the resident documentation with any exceptions or additions as noted here. Pain control improved with increased use of NSAID with decreased need for opioids. On examination, S1/S2 nl RRR no MCG. CTAB. Abd NT/ND BS+ve. Str 5/5 bilateral LE on examination. Intractable pain in the setting of acute on chronic lower back pain - ortho spine and pain mgmt consult - PT/OT consult. Continue to encourage use of toradol prior to morphine to improve inflammation, consider addition of meloxicam on discharge vs. PO toradol. Continue duloxetine. Else see resident documentation as noted. Subjective Pt awoken from sleep this AM. He is in 8/10 pain in his low back. The pain still radiates down his legs. It is no worse than yesterday, but not significantly better either. He denies new symptoms of chest pain, SOB, or N/V. Review of Systems Review of Systems: As per HPI Physical Exam Physical Exam: Constitutional: well appearing, no acute distress HEENT: normocephalic, no conjunctival injection CV: regular rhythm, regular rate, no murmur, no LE edema Respiratory: Clear to auscultation bilaterally. No rhonchi, wheezes, or crackles. No increased work of breathing GI: soft, nondistended, positive bowel sounds MSK: no gross deformities noted Skin: warm, dry, no rashes Neuro: alert, oriented, no FND noted Results & Data Results & Data Vital Signs (Past 12 Hours) Vital Signs Temp Pulse Resp BP Pulse Ox O2 Del Method 11/28/22 21:40 Room Air 11/28/22 20:45 36.5 C 58 L 16 133/90 94 Room Air Resident Activity Tracking Resident Involvement: Resident Care Provided Care Provided: Adult Hospital Medicine
[2022-11-29 07:51] LABS: Calcium 9.2 mg/dl (8.6-10.3)
[2022-11-29 07:57] LABS: BUN Creatinine Ratio 12.1 (10-20); Creatinine Clr Calc Pharmacy 109.6 ml/min; Est GFR (African American) 94.6 ml/min; Est GFR (Non-African American) 81.7 ml/min
[2022-11-29] MEDS: DULoxetine HCL 30 MG CAP PO SCH (08:37)
[2022-11-29] MEDS: GABAPENTIN 600 MG TAB PO SCH ×3 (08:37→21:28)
[2022-11-29] MEDS: CYCLOBENZAPRINE HCL 5 MG TAB PO SCH ×2 (08:37→21:29)
[2022-11-29] MEDS: NICOTINE 14 MG/24 HR PATCH TD SCH (08:37)
[2022-11-29] MEDS: POLYETHYLENE (MIRALAX) 17 GM PACK PO SCH (08:39)
[2022-11-29] MEDS: MoRPHine SULFATE 4 MG/ML 1 ML CARP\\VIAL IV PRN ×2 (08:47→15:18)
[2022-11-29 08:49] LABS: Hematocrit (blood only) 45.7 % (42.0-52.0); Hemoglobin 16.1 g/dl (14.0-18.0); Mean Corpuscular Hgb Conc 35.2 g/dL (32.0-36.0); Mean Corpuscular Volume 88.1 fL (80.0-100.0); Mean Platelet Volume 10.9 fL (9.4-12.4); Platelet Count 165 K/uL (130-400); RDW Coefficient of Variation 12.9 % (11.5-14.5); RDW Standard Deviation 41.9 fL (36.4-46.3); Red Blood Count 5.19 M/uL (4.70-6.10); White Blood Count 6.99 K/ul (4.8-10.8)
--- NOTE | 2022-11-29 09:25 | Orthopedic Progress Note ---
Date of Service November 29, 2022 Assessment & Plan (1) Radicular pain of both lower extremities: Plan: This time initiate formal physical therapy if he is able to ambulate and pain controlled discharge home is reasonable. He will be following up for second opinion in [place] regarding his back issues. We will continue to see him and explore other pain management issues. Admission and Anticipated Discharge Date Admission Date: November 28, 2022 Subjective Patient is noting some improvement with his IV Toradol. He he states he also initiated Cymbalta. He did ambulate to the bathroom throughout the day yesterday. Physical Exam Physical Exam: On exam patient is up in bed. Regional strength testing lower extremities. Results & Data Vital Signs (Past 12 Hours) Vital Signs Temp Pulse Resp BP Pulse Ox O2 Del Method 11/29/22 07:21 36.5 C 52 L 16 117/75 98 Room Air 11/28/22 21:40 Room Air
[2022-11-29] MEDS: SIMVASTATIN 40 MG TAB PO SCH (21:27)
[2022-11-29] MEDS: LATANOPROST 0.005% OP SOLN 2.5 ML BTL OP SCH (21:27)
[2022-11-30] MEDS: ACETAMINOPHEN 500 MG TAB PO SCH (05:15)
[2022-11-30] MEDS: KETOROLAC TROMETHAMINE 15 MG/ML VIAL IV PRN (06:36)
[2022-11-30] MEDS: MoRPHine SULFATE 4 MG/ML 1 ML CARP\\VIAL IV PRN ×2 (07:47→12:15)
[2022-11-30] MEDS: GABAPENTIN 600 MG TAB PO SCH (07:50)
[2022-11-30] MEDS: DULoxetine HCL 30 MG CAP PO SCH (07:50)
[2022-11-30] MEDS: CYCLOBENZAPRINE HCL 5 MG TAB PO SCH (07:50)
[2022-11-30] MEDS: POLYETHYLENE (MIRALAX) 17 GM PACK PO SCH (07:52)
[2022-11-30] MEDS: NICOTINE 14 MG/24 HR PATCH TD SCH (07:52)
[2022-11-30 08:50] LABS: BUN Creatinine Ratio 18.2 (10-20); Calcium 9.1 mg/dl (8.6-10.3); Creatinine Clr Calc Pharmacy 152.2 ml/min; Est GFR (African American) 124.4 ml/min; Est GFR (Non-African American) 107.3 ml/min; Potassium 4.1 mmol/L (3.5-5.1)
--- NOTE | 2022-11-30 11:20 | Discharge Summary ---
Date of Service November 30, 2022 Admission HPI Per Admitting Provider Manuel Apodaca is a 47yo male with chronic back pain presenting with severe, acute back pain. Patient reports that he tried to sit on the couch last night and developed severe acute low back pain with radiation into the buttocks bilaterally as well as leg weakness, numbness and tingling. He has pain in his anterior thighs bilaterally and the bottoms of his feet are more burning/tingling than usual. He denies changes in bowel habits but states that he feels some pressure in his bladder - he is able to pass urine without difficulty, no incontinence or retention. No trauma or fever. No recent activity to exacerbate his pain. In the ER he is afebrile, HD stable Admission Exam Per Admitting Provider General: patient resting comfortably, NAD, non-toxic in appearance, AA&O x 4 Skin: warm, dry, intact, no rashes or lesions HEENT: NC/AT, PERRL, EOMI, anicteric sclera, conjunctiva without injection, external ear normal to inspection and nontender, nares patent, moist mucus membranes, dentition intact, no oropharyngeal lesions, neck supple, trachea midline, no LAD, no thyromegaly, no JVD Heart: +S1/S2, regular, no m/r/g Lungs: equal air entry bilaterally, no rales/rhonchi/wheezes Abd: +BS, soft, NT/ND, no masses/organomegaly/ascites Ext: warm, 2+ pulses in UE/LE bilaterally, no clubbing/cyanosis or edema Neuro: diminished sensation to light touch in bilateral LE, thighs and anterior shins, reflexes intact Principal Diagnosis acute on chronic back pain Discharge Exam Constitutional: well appearing, no acute distress HEENT: normocephalic, no conjunctival injection CV: clinically well perfused Respiratory: No increased work of breathing, no accessory muscle use MSK: no gross deformities noted Skin: warm, dry, no rashes Neuro: alert, oriented, no FND noted Discharge Data Allergies Allergy/AdvReac Type Severity Reaction Status Date / Time metoprolol Allergy Intermediate RASH Verified 05/03/22 20:28 propoxyphene Allergy Intermediate ITCHY Verified 05/03/22 20:28 acetaminophen AdvReac Intermediate SICK TO Verified 05/03/22 20:28 STOMACH prednisone AdvReac Intermediate Chest Pain Verified 05/03/22 20:28 tramadol AdvReac Intermediate headache Verified 05/03/22 20:28 Consultations 11/28/22 00:14 ED Decision to Admit Stat 11/28/22 02:22 Consult Orthopedic Spine Surgery Routine 11/28/22 07:45 Consult Pain Management Routine Ordered Studies 11/28/22 00:02 MRI Spine [MR lumbar spine wo con] Stat IMPRESSION: 1. Mild disc degeneration at L2-3, L4-5 and L5-S1 with annular disc bulging and superimposed disc protrusions at L4-5 and L5-S1 causing a mild subarticular recess stenosis at L2-3 and L4-5, with posterior displacement and impingement of the transiting right S1 nerve root at L5- S1. There is a intervertebral body fusion device at L3-4 with residual annular disc bulge flattening the ventral thecal sac. 2. There is no spinal canal stenosis. 3. There is a mild bilateral L2-3, mild right L3-4, mild bilateral L4-5 and moderate bilateral L5-S1 neuroforaminal stenosis with mild impingement of the L5 nerve root ganglia. 4. There is minimal to mild facet arthropathy with mild synovitis. 5. No evidence of fracture, infection, tumor or arachnoiditis. 11/28/22 13:21 MR thoracic spine wo con Routine IMPRESSION: No evidence of acute thoracic spine pathology. Hospital Course (1) Lumbar disc herniation with radiculopathy: Pt is a 47 yo male presenting with acute worsening of chronic back pain, bilateral LE weakness and tingling. Intractable pain secondary to lumbar disc herniation with radiculopathy - ortho consulted; no surgical options recommended at this point - pain management consulted; recommended toradol 15 mg IV q6hr and morphine 4 mg as needed AFTER toradol - toradol helped slightly; discharged home with the following new pain regimen: meloxicam 7.5 mg daily duloxetine 30 mg daily- started this hospitalization flexeril 5 mg BID PRN oxycodone 5 mg BID PRN - in addition to above, continue home gabapentin 1200 mg PO TID and heat pad PRN; pt also uses medical cannabis - PT recommended f/u with outpatient PT - pt will f/u outpatient in [place] for second opinion concerning treatment options HLD - continue simvastatin 40mg PO daily Sleep apnea - noncompliant with CPAP Hx of tobacco use - currently smokes 1/2 PPD - recommend cessation discussions outpatient Diet: regular Code: full DVT ppx: low risk Dispo: discharge home (2) Smoker: (3) Dyslipidemia: (4) Sleep apnea: Total Time Total Time Spent Total Time Spent (In Minutes): as per attending attestation Discharge Plan Discharge Items Patient Disposition: Home - Self-Care Reason For Visit: BACK PAIN Discharge Diagnosis: acute on chronic back pain Condition on Discharge: Good Activity: Per Instructions section Non-emergency contact: Primary Care Provider, Surgeon and Pain Management Call non-emergency contact if: you have any medication questions, your symptoms worsen, your pain is worsening and your pain is concerning for you Follow-up/Referrals: Blaze Lee [Primary Care Provider] - Diet: Regular Addtl Attending Provider Instructions: You were admitted to the hospital for acute back pain worse from your baseline. You were treated with anti-inflammatories, muscle relaxers, and opioid medications which helped control the pain. The orthopedic surgeon saw you during your hospitalization- there were no surgical options available. Physical therapy worked with you and recommended that you follow up with physical therapy outside of the hospital to help with your pain. A discharge summary will be sent to your primary care physician to ensure continuity of care. Please bring this discharge summary with you to your next office appointment so that your provider can review it at that time. Medications: Your medication list has been reviewed and reconciled upon discharge to ensure accuracy and continuity of care. An updated list of all your medications is included with your hospital discharge paperwork. Please review this list closely and make note of any changes to your medications. - You were started on a new medication called duloxetine to try to help with the pain. This is to be taken daily. - You have been prescribed the muscle relaxer, cyclobenzaprine 5 mg. This can be taken twice per day as needed for spasm-like pain. - In terms of anti-inflammatories, your over the counter Aleve/naproxen/ibuprofen has been replaced with prescription meloxicam. This is taken once per day. - You were also prescribed oxycodone up to twice per day to take as needed for extreme pain. Follow up appointments: - Make a follow up appointment with your PCP within the next week. It is very important that you follow up with them shortly after discharge from the hospital. - Keep all of your follow up appointments as already scheduled. If you cannot make an appointment, notify your provider. CONTACT YOUR PRIMARY CARE PROVIDER if you experience any of the following: - Difficulty following your treatment plan - Difficulty taking any of your medications CALL 911 OR GO TO THE EMERGENCY DEPARTMENT if you experience any of the following: - Sudden, severe abdominal pain or nausea/vomiting - Severe chest pain or chest pain that radiates to your jaw or arm - Sudden, severe shortness of breath or difficulty breathing Pending Studies at Discharge: No Visit Report Forms: Smoking Cessation Stand-Alone Forms: [facility], Pain - Opioid Pain Management, Smoking Cessation Medications and DC Order Prescriptions: New oxycodone 5 mg tablet 5 mg PO BID PRN (Reason: pain) Qty: 30 0RF cyclobenzaprine 5 mg Tablet 5 mg PO BID PRN (Reason: Back Pain) Qty: 28 0RF duloxetine 30 mg Capsule,Delayed Release(Dr/Ec) 30 mg PO QAM 30 Days Qty: 30 0RF meloxicam 7.5 mg tablet 7.5 mg PO DAILY 30 Days Qty: 30 0RF Continued gabapentin 600 mg tablet 1,200 mg PO TID simvastatin 40 mg tablet 40 mg PO QPM Medical Marijuana 0 unit DIRECTED PRN (Reason: Pain) Rx Instructions: MULTIPLE FORMS/ROUTES latanoprost 0.005 % Drops 1 drp OPHTHALMIC (EYE) PM Discontinued naproxen sodium [Aleve] 220 mg Tablet 220 mg PO TID PRN (Reason: Pain) Rx Instructions: along with gabapentin Discharge Orders: Discharge Order (Routine); Ordered 11/30/22 Ordered By: May Dumont Admission Data Admit Date/Time: 11/28/22 00:14 Attending Provider: Keegan Boland Admit Provider: Lizbeth Holman Primary Care Provider: Blaze Lee Other Providers: Lizbeth Holman ; Idris Yeh ; Arianna Lopez Other Interventions: Discharge Summary Assessment (RN) Last Done: 11/30/22 12:10 Supervising Physician Co-Signing Physician Notes Attending attestation Pt seen and examined in concert with Dr. Dumont. In agreement with the documented findings as noted in the resident documentation with any exceptions or additions as noted here. Pain well controlled on present medication regimen and worked with PT well. On examination, S1/S2 nl RRR no MCG. CTAB. Abd NT/ND BS+ve. Str 5/5 bilateral LE on examination. Intractable pain in the setting of acute on chronic lower back pain - ortho spine and pain mgmt consult - PT/OT - home medication regimen as noted above. Encourage lifestyle modification. Else see resident documentation as noted. Total attending physician time spent with this patient's care on the day of discharge: 35 minutes. Resident Activity Tracking Resident Involvement: Resident Care Provided Care Provided: Adult [facility] Medicine
== END 2022-11-30 14:10 | disposition home or self-care (01) ==
LOC: ED 22:44 → 3N 22:44 → SUATTDRO 11-28 00:14 → 3N 11-28 01:39

== ENCOUNTER 2024-09-13 09:21 | Inpatient (IN) ==
--- NOTE | 2024-09-07 13:37 | Anesthesiology Consultation ---
Date of Service September 07, 2024 Assessment & Plan (1) Encounter for pre-operative examination: Plan - surgeon ordered medical clearance, Dirk Rosa 09/09/24. - anesthesia reactions/requests: "Can be combative ..needs quiet calm environment. Panit attacks when lying flat, asked to be elevated when he is waking up from surgery" - Per registered physical therapist on 09/07/24: No known infectious disease contacts, current infectious disease symptoms in past 10 days or COVID positive test result in the past 30 days. Chart Review Chart Review: Pending: Refer to Additional Notes / Consult section and Patient NOT seen in Pre Admission Testing History Surgery Operation Date: 09/13/24 11:05 Proposed Procedures p L2-L3 Decompression and Fusion, Removal Hardware L3-L4, with Spinal Cord Monitoring - Idris Yeh DO Height/Weight Height: 6 ft 1 in Weight: 104.326 kg Allergies Allergy/AdvReac Type Severity Reaction Status Date / Time metoprolol Allergy Intermediate RASH Verified 09/07/24 12:39 propoxyphene Allergy Intermediate ITCHY Verified 09/07/24 12:39 acetaminophen AdvReac Intermediate SICK TO Verified 09/07/24 12:39 STOMACH prednisone AdvReac Intermediate Chest Pain Verified 09/07/24 12:39 tramadol AdvReac Intermediate headache Verified 09/07/24 12:39 Medications Home Medications Medication Instructions Recorded Confirmed Last Taken gabapentin 600 mg tablet 1,200 mg PO TID 11/06/19 09/07/24 10/06/22 Medical Marijuana 0 unit DIRECTED PRN Pain 11/09/19 09/07/24 10/01/21 23:30 latanoprost 0.005 % eye drops 1 drp ophthalmic (eye) PM 09/24/21 09/07/24 10/05/22 acetaminophen 500 mg tablet 1,500 mg PO QID 09/07/24 09/07/24 Unknown fluticasone propionate 50 1 spray intranasal DAILY PRN 09/07/24 09/07/24 Unknown mcg/actuation nasal allergies spray,suspension (Flonase Allergy Relief) oxycodone 5 mg tablet 10 mg PO QID PRN pain 09/07/24 09/07/24 Unknown rosuvastatin 20 mg tablet 20 mg PO DAILY 09/07/24 09/07/24 Unknown Past Medical History Medical History (Updated 09/07/24 @ 13:35 by Charley Salazar PA-C) Back pain, chronic Carpal tunnel syndrome of left wrist Cervical radiculopathy slightly limited rom in all directions Degenerative disc disease Dyslipidemia Glaucoma Hematoma (2019) hx- after neck surgery, neck drain was "plugged"- return to [place] History of anesthesia reaction Can be combative ..needs quiet calm environment History of panic attacks when lying flat, asked to be elevated when he is waking up from surgery Incontinence "every now and then, due to back issues" Lumbar disc herniation with radiculopathy Psoriasis Sciatica Seasonal allergies Sleep apnea unable to tolerate cpap Torticollis Past Family History Family History Other Diabetes Past Surgical History Surgical History (Updated 09/07/24 @ 13:08 by Fabiola Hyatt) History of arthroscopy of left shoulder (1991) History of carpal tunnel surgery of right wrist History of evacuation of hematoma (11/11/19) post cervical discetomy History of lumbar fusion (09/2021) decompression and fusion, l3 l4 History of meniscectomy of left knee (2014) Hx of cervical discectomy (11/10/19) C6-C7 - Dr. Yeh Social History Smoking Status: Former smoker tobacco type: cigarettes Smoking cigarettes per day: 1/2 pack Do You Dip or Chew Tobacco: No Smoking End Date: quit august 12, 2024 Hx Alcohol Use: No Alcohol type: hard liquor alcohol intake frequency: holidays/special occasions only Hx Substance Use: Yes substance use type: marijuana Substance Use Type Other:: medical marijuana for pain control. daily use Last Used Substance: Just Prior to Arrival Last Used Substance Other:: medical marijuana daily (Advised) Lab Results Anesthesia Preop Results Results Anesthesia Widget: WBC 6.97 K/ul (4.8-10.8) 08/24/24 Hgb 15.3 g/dl (14.0-18.0) 08/24/24 Hct 42.6 % (42.0-52.0) 08/24/24 Plt 190 K/uL (130-400) 08/24/24 Na 139 mmol/L (136-145) 08/24/24 K 3.7 mmol/L (3.5-5.1) 08/24/24 Cl 104 mmol/L (98-107) 08/24/24 CO2 28 mmol/L (21-32) 08/24/24 BUN 13 mg/dl (6-23) 08/24/24 Creat 0.95 mg/dl (0.6-1.4) 08/24/24 Glucose Level 113 mg/dl (70-99(Fasting)) H 08/24/24 PT 10.3 Seconds (9.0-12.0) 08/24/24 PTT 31 Seconds (21-31) 08/24/24 INR 0.9 (0.9-1.1) 08/24/24 Urine Color Yellow 08/24/24 Urine Appearance Clear (Clear) 08/24/24 Urine pH 6.0 (4.5-7.5) 08/24/24 Urine Specific [place] 1.013 (1.000-1.030) 08/24/24 Urine Protein Negative (Negative) 08/24/24 Urine Glucose (UA) Negative (Negative) 08/24/24 Urine Ketones Negative (Negative) 08/24/24 Urine Blood Negative (Negative) 08/24/24 Urine Nitrite Negative (Negative) 08/24/24 Urine Bilirubin Negative (Negative) 08/24/24 Urine Urobilinogen Negative (Negative) 08/24/24 Urine Leukocyte Esterase Negative (Negative) 08/24/24 Blood Type O Positive 08/24/24 Antibody Screen NEGATIVE 08/24/24 Testing Electrocardiogram Date: 08/24/24 Sinus bradycardia, rate 54 bpm Rightward axis Chest X-Ray Date: 08/24/24 No acute findings. Other Testing Head and neck CTA 11/09/19 Normal study. No evidence of hemodynamically significant carotid or vertebral artery stenosis. No evidence of dissection.
[2024-09-13] MEDS: GABAPENTIN 900 MG DOSE PO SCH (10:00)
[2024-09-13] MEDS: LR 15ML/HR IV SCH (10:00)
[2024-09-13] MEDS: LR 60ML/HR IV SCH (10:01)
[2024-09-13] MEDS: CeleBREX 200 MG CAP PO SCH (10:06)
[2024-09-13] MEDS ORDERED: DEXAMETHASONE SOD INJ 4 MG/ML VIAL ONE (12:25)
[2024-09-13] MEDS ORDERED: ROCURONIUM BROMIDE 10 MG/ML 5 ML VIAL IV ONE (12:25)
[2024-09-13] MEDS ORDERED: LIDOCAINE 2% 2 ML VIAL/AMP(20MG/ML) INFIL ONE (12:25)
[2024-09-13] MEDS ORDERED: PROPOFOL IV EMULSION 10 MG/ML 20 ML VIAL IV ONE ×2 (12:25→13:04)
[2024-09-13] MEDS ORDERED: ONDANSETRON INJ 2 MG/ML 2 ML VIAL ONE (12:25)
[2024-09-13] MEDS ORDERED: MIDAZOLAM HCL 1 MG/ML 2ML VIAL ONE (12:26)
[2024-09-13] MEDS ORDERED: fentaNYL citrate PF 100 MCG/2 ML VIAL ONE ×2 (12:26→13:40)
--- NOTE | 2024-09-13 12:47 | History & Physical Bridge Note ---
Date of Service September 13, 2024 History & Physical Bridge Note I have examined the patient, reviewed the History & Physical and in the interval since the performance of the History & Physical I have noted the following changes of clinical significance: no changes noted
--- NOTE | 2024-09-13 12:49 | History & Physical Report ---
Date of Service September 13, 2024 Assessment & Plan (1) Radicular pain of both lower extremities: Plan: L2-L3 decompression and fusion, removal of hardware L3-L4 removal hardware L3-L4 History of Present Illness Chief Complaint: Back and leg pain Primary Care Provider: Blaze Lee This is a 49-year-old male that presents with significant continued back and leg pain after failing course of nonoperative care is here for surgical invention. Allergies Allergy/AdvReac Type Severity Reaction Status Date / Time metoprolol Allergy Intermediate RASH Verified 09/13/24 09:25 propoxyphene Allergy Intermediate ITCHY Verified 09/13/24 09:25 acetaminophen AdvReac Intermediate SICK TO Verified 09/13/24 09:25 STOMACH prednisone AdvReac Intermediate Chest Pain Verified 09/13/24 09:25 tramadol AdvReac Intermediate headache Verified 09/13/24 09:25 Home Medications Medication Instructions Recorded Confirmed Type gabapentin 600 mg tablet 1,200 mg PO TID 11/06/19 09/13/24 History Medical Marijuana 0 unit DIRECTED PRN Pain 11/09/19 09/13/24 History latanoprost 0.005 % eye drops 1 drp ophthalmic (eye) PM 09/24/21 09/13/24 History acetaminophen 500 mg tablet 1,500 mg PO QID 09/07/24 09/13/24 History fluticasone propionate 50 1 spray intranasal DAILY PRN 09/07/24 09/13/24 History mcg/actuation nasal allergies spray,suspension (Flonase Allergy Relief) oxycodone 5 mg tablet 10 mg PO QID PRN pain 09/07/24 09/13/24 History rosuvastatin 20 mg tablet 20 mg PO DAILY 09/07/24 09/13/24 History Past Med/Surg History Problem List Radicular pain of both lower extremities Postlaminectomy syndrome of lumbosacral region Sciatica (Acute) Lumbar disc herniation with radiculopathy (Acute) Obesity Encounter for pre-operative examination Carpal tunnel syndrome, left Cervical radicular pain Tobacco abuse Current vaping on some days Medical marijuana use Smoker Dyslipidemia Sleep apnea Noncompliant with CPAP Back pain, chronic (Chronic) Medical History Lumbar disc herniation with radiculopathy Dyslipidemia Carpal tunnel syndrome of left wrist Back pain, chronic History of panic attacks when lying flat, asked to be elevated when he is waking up from surgery Incontinence "every now and then, due to back issues" Sleep apnea unable to tolerate cpap Seasonal allergies Sciatica Psoriasis History of anesthesia reaction Can be combative ..needs quiet calm environment Degenerative disc disease Glaucoma Hematoma (2019) hx- after neck surgery, neck drain was "plugged"- return to [place] Cervical radiculopathy slightly limited rom in all directions Torticollis Surgical History History of evacuation of hematoma (11/11/19) post cervical discetomy History of lumbar fusion (09/2021) decompression and fusion, l3 l4 History of carpal tunnel surgery of right wrist Hx of cervical discectomy (11/10/19) C6-C7 - Dr. Yeh History of arthroscopy of left shoulder (1991) History of meniscectomy of left knee (2014) Family History Other Diabetes Social History Smoking Status: Former smoker Tobacco Type: Cigarettes Cigarettes Per Day: 1/2 pack; Smoking End Date: quit august 12, 2024; Second Hand Exposure: No; Do You Dip or Chew Tobacco: No; Tobacco Cessation Education Requested by Patient: No Hx Alcohol Use: No Hx Substance Use: Yes Last Used Substance: Just Prior to Arrival Last Used Substance Other:: medical marijuana daily (Advised) Substance Use Type Other:: medical marijuana for pain control. daily use Preferred Language: Belarusian Communication Ability: Effective University Lecturer Required: No Beliefs That Will Affect Care: None marital status: Current Living Situation: Spouse and Family Current Living Situation Comment: and 12 year old daughter Other Information That Helps Us Care for You: No Feels Safe at Home: Yes Safety Concerns: Feels Safe At This Time Assistive Devices: CPAP, Denture - Upper and Glasses Physical Exam Physical Exam: Patient is alert and oriented Heart regular rhythm Lungs clear Results & Data Results & Data Vital Signs (Past 12 Hours) Vital Signs Temp Pulse Resp BP Pulse Ox O2 Del Method 09/13/24 09:44 36.7 C 60 20 116/83 98 Room Air
[2024-09-13] MEDS ORDERED: ONDANSETRON INJ 2 MG/ML 2 ML VIAL IV PRN ×2 (13:00→16:24)
[2024-09-13] MEDS ORDERED: ATROPINE SULFATE 0.1 MG/ML 10ML SYR IV PRN (13:00)
[2024-09-13] MEDS ORDERED: ePHEDrine sulfate 50 MG/ML AMP IV PRN (13:00)
[2024-09-13] MEDS ORDERED: DexMEDEtomidine HCL IV 100 MCG/ML VIAL IV ONE (13:05)
[2024-09-13] MEDS: ceFAZolin 2000MG 2,000 MG/15 ML SYR IV SCH ×2 (13:17→21:38)
[2024-09-13] MEDS ORDERED: SUGAMMADEX SODIUM 200 MG/2 ML VIAL IV ONE (13:49)
[2024-09-13] MEDS: ceFAZolin 330 MG/ML 1 GM VIAL ONE (13:51)
[2024-09-13] MEDS: BUPIVACAINE/EPINEPHRINE 0.25% 1:200,000 30 ML VIAL ONE (13:51)
[2024-09-13] MEDS ORDERED: HYDROmorphone INJ 2 MG/ML SYR/VIAL ONE (14:27)
[2024-09-13] MEDS: FLOSEAL HEMOSTATIC MATRIX 10ML TOP ONE (14:33)
--- NOTE | 2024-09-13 14:50 | Operative Report ---
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 #2 exploration of fusion L3-L4. #3 lumbar decompression with bilateral medial facetectomies and foraminotomies L2-L3. #4 posterior spinal fusion L2-L3. #5 placement posterior instrumen tation L2-L4 using camber. #6 interbody fusion L2-L3. #7 placement Spira 14 x 26 mm at L2-L3. #8 placement of infuse collagen sponge, with Koros and local autograft in the posterolateral gutters and os design in the interbody space. #9 placement of versa wrap over the exposed dura. Surgeon Idris Yeh, DO A Auxiliary Sedrick Cisneros Estimated Blood Loss 100 Findings Consistent with Post-Op Diagnosis Specimens None Indications This is a 49-year-old male known to me that presents above-mentioned diagnosis after failing course of nonoperative care is here for the above-mentioned procedure. Description of Procedure Patient was met with identified informed consent obtained. Patient was then taken to the operative suite underwent intubation placed in a prone position on a [place] table top Damian frame. All bony prominences well-padded eyes inspected to ensure no external pressure placed upon them. This point the lumbar spine was prepped and draped in normal sterile fashion. Sharp dissection with the assistance of Bovie cautery performed down to and exposing the lamina transverse processes of L2 and instrumentation at L3-L4 bilaterally. I then proceeded to remove the hardware bilaterally explored the fusion mass noting it to be mature and intact. Then performed complete laminectomy of L2 with bila teral medial facetectomies and foraminotomies addressing severe neural compression. Pedicle screws were then placed in L2-L3-L4 bilaterally with with the assistance of fluoroscopy and appropriately sized lester placed. By way the transforaminal approach on the left complete discectomy of L2-L3 was performed endplates curetted to subcortical bleeding bone and the 14 x 26 mm spiral cage filled with os design bone graft tapped in position. The rods were then compressed locked in a final position bilaterally. The transverse processes of L2-L3 burred to subcortical bleeding bone. Infuse collagen sponge, with Koros and local autograft placed in the posterior gutters. First wrap placed of the exposed dura. 15 round LISETH drain inserted. The incision was then closed with 1 Vicryl the fascia 2-0 Vicryl subcutaneously and 4 Monocryl for final skin closure. Steri-Strips sterile dressing placed. Patient waken taken PACU stable condition. Please note Sedrick record was present at the entire procedure about the patient positioning complex portion of the surgery and final skin closure. Im ordering 10 grams of Collagen Powder ([facility] A6010 Primary Dressing) and 10 bordered super absorbent ([facility] A6196 Secondary Dressing) to treat an incision wound that was caused by a spine procedure. The incision is approximately 2 cm(W) x 2 cm(L) down to the spinal column and epidural space 2 cm (D) in size and is a full thickness wound showing no signs of infection. Collagen comes in 1 gram packets so 10 packets were ordered. Given the size of the wound, with moderate exudate I chose to order a 10 day supply. The patient will be provided instructions for proper application of the collagen wound kit. The patient will be asked to apply the collagen powder daily and then cover it with sterile dressings dispensed. Collagen was selected as I expect the collagen to attract monocytes and fibroblasts, act as a sacrificial substrate for MMPs, and ultimately proved a matrix for tissue and vessel growth. The collagen will act as a primary dressing in this scenario. It is medically necessary for proper healing of these wounds to improve bioavailability and contact with each wound surface, this is also to help prevent infection of wounds and promote healing ultimately leading to a better healing outcome and limit the risk of infection. I attest to the content of the Intraoperative Record and any orders documented therein. Any exceptions are noted below.
--- NOTE | 2024-09-13 14:52 | Fluoroscopy Report ---
FL lumbar spine 2-3V CLINICAL HISTORY: L2-L3 DECOMPRESSION AND FUSION, L3-L4 HW REMOVAL COMPARISON STUDY: 05/03/2022 FLUOROSCOPY TIME: 9 seconds FLUOROSCOPY IMAGES: 3 EXPOSURE DOSE: 5 mGy FINDINGS: Fluoroscopy was provided for lumbar surgery. IMPRESSION: Intraoperative fluoroscopy. ACT 112: Negative or not required by law. Electronically signed by: Gabriel Fraser M.D. 09/13/2024 2:50 PM
[2024-09-13] MEDS: fentaNYL citrate PF 100 MCG/2 ML VIAL IV PRN (15:18)
[2024-09-13] MEDS: HYDROmorphone INJ 1 MG/ML SYRINGE IV PRN ×2 (15:38→17:00)
--- NOTE | 2024-09-13 15:54 | Anesthesiology Progress Note ---
Date of Service September 13, 2024 Anesthesia Post Procedure Vital Signs Vital Signs: Temp Pulse Pulse Resp BP BP Pulse Ox 09/13/24 15:45 97.7 F 57 L 12 106/67 99 09/13/24 15:35 62 14 115/53 L 94 09/13/24 15:25 56 L 10 L 98/54 L 96 09/13/24 15:15 68 13 116/70 100 09/13/24 15:09 97.2 F L 89 10 L 142/101 H 95 09/13/24 09:44 98.1 F 60 20 116/83 98 O2 Del Method O2 Flow Rate 09/13/24 15:45 Nasal Cannula 2 09/13/24 15:35 Nasal Cannula 2 09/13/24 15:25 Oxymask 4 09/13/24 15:15 Oxymask 4 09/13/24 15:09 Oxymask 4 09/13/24 09:44 Room Air Pain Intensity Back: Pain Intensity: 5 Transfer of Care Handoff Completed per policy Notes Mental Status: alert / awake / arousable and participated in evaluation Patient Amnestic to Procedure: Yes Nausea / Vomiting: adequately controlled Pain: adequately controlled Airway Patency, RR, SpO2: stable & adequate BP & HR: stable & adequate Hydration State: stable & adequate Anesthetic Complications: no major complications apparent and Pt Satisfied with anesthetic care
[2024-09-13] MEDS ORDERED: DO NOT ADMINISTER FLU VACCINE PRN (16:24)
[2024-09-13] MEDS ORDERED: FAMOTIDINE 20 MG TAB PO PRN (16:24)
[2024-09-13] MEDS ORDERED: DO NOT ADMINISTER PNEUMOCOCCAL VACCINE PRN (16:24)
[2024-09-13] MEDS ORDERED: PROMETHAZINE 12.5 MG/50.5 ML BAG IV PRN (16:24)
[2024-09-13] MEDS ORDERED: bisacodyL 10 MG SUPP PR PRN (16:24)
[2024-09-13] MEDS ORDERED: METOCLOPRAMIDE HCL INJ 5 MG/ML 2 ML VIAL IV PRN (16:24)
[2024-09-13] MEDS ORDERED: SOD PHOSPHATE/SOD BIPHOSPHATE ENEMA 132 ML BTL PR PRN (16:24)
[2024-09-13] MEDS ORDERED: MAGNESIUM HYDROXIDE SUSP 30 ML UDC PO PRN (16:24)
[2024-09-13] MEDS ORDERED: ALUMINUM/MAGNESIUM SUSP 30 ML UDC PO PRN (16:24)
[2024-09-13] MEDS ORDERED: NALOXONE HCL 0.4 MG/1 ML VIAL/CARP IV PRN (16:24)
[2024-09-13] MEDS ORDERED: ACETAMINOPHEN 500 MG TAB PO PRN (16:24)
[2024-09-13] MEDS ORDERED: hydrOXYzine HCl 25 MG TAB PO PRN (16:24)
[2024-09-13] MEDS ORDERED: FLUTICASONE PROPIONATE NA SPR 16 GM BTL PRN (16:24)
[2024-09-13] MEDS ORDERED: diphenhydrAMINE Capsule 25 MG CAP PO PRN (16:24)
[2024-09-13] MEDS ORDERED: HYDROmorphone INJ 0.5 MG/0.5 ML SYR IV PRN (16:24)
[2024-09-13] MEDS ORDERED: LORazepam 2 MG/1 ML VIAL IV PRN (16:24)
[2024-09-13] MEDS: ACETAMINOPHEN 500 MG TAB PO SCH (16:33)
--- NOTE | 2024-09-13 17:31 | Hospitalist Consultation ---
Date of Consultation September 13, 2024 Assessment & Plan (1) Radicular pain of both lower extremities: (2) S/P spinal surgery: Patient is a 49-year-old male with past medical history significant for HLD, GERD, tobacco use disorder, anxiety, medical marijuana use, chronic pain due to injury on PRN oxycodone, musculoskeletal disorder of the neck and other problems listed below who is being seen in consultation for routine postoperative medical management after undergoing L2-L3 decompression and fusion and L3-L4 removal of hardware performed by Dr. Yeh earlier today. Per ortho for pain control, wound care, anticoagulation and activities Continue ISP, PT/OT when appropriate as per ortho team Monitor H/H for ABLA (preop Hgb = 15.3 as of 08/24, EBL = 100mL) and transfuse blood products PRN Continue gabapentin (3) Dyslipidemia: Did not start rosuvastatin, recently changed from simvastatin Would like to hold off on taking rosuvastatin for now --> orders changed to reflect this Other chronic medical conditions: b/l glaucoma --> continue eyedrops DVT Prophylaxis: As per ortho PCP: Blaze Lee PA-C Disposition: D/c planning as per ortho Thank you for this consultation. We will follow the patient with you during their hospital stay. You [facility] via [employer]. Patient seen in collaboration with Dr. Ledesma. Please see addendum. I spent a total of 30 minutes coordinating, documenting, and providing care for this patient excluding time spent in the performance of separately billed services or time spent by another provider/QHP. This included personally reviewing all current laboratories and imaging studies, medical reconciliation, outpatient chart review and discussion with specialists. This chart was completed in part utilizing Speech Voice Recognition Software. Grammatical errors, random word insertions, pronoun errors, and incomplete sentences are an occasional consequence of this system due to software limitations, ambient noise, and hardware issues. Any formal questions or concerns about the content, text, or information contained within the body of this dictation should be directly addressed to the provider for clarification. Supervising Physician Co-Signing Physician Notes Patient was seen and examined at bedside as medical consult status post spinal surgery. Patient sitting up in chair, appears comfortable, unable to comment on his BLE radicular symptoms improvement. I agree with the assessment and plan as above. On exam, lower back dressing without soakage, LISETH drain with minimal serosanguineous collection noted. Rest of the examination as above. Total time spent independently: 12 minutes I have seen and examined the patient and have discussed the case with the provider above. I agree with the assessment and plan as stated. History of Present Illness Reason for Consultation: Routine postoperative medical management Requesting Physician: Idris Yeh DO Attending Physician: Idris Yeh DO History of Present Illness Patient is a 49-year-old male with past medical history significant for HLD, GERD, tobacco use disorder, anxiety, cannabis dependence, chronic pain due to injury, musculoskeletal disorder of the neck and other problems listed below who is being seen in consultation for routine postoperative medical management after undergoing L2-L3 decompression and fusion and L3-L4 removal of hardware performed by Dr. Yeh earlier today. History obtained from the patient and associated chart review. Endorses some burning at his surgical site. Denies any SOB, chest pain or abdominal pain. LISETH drain x 1 intact and draining sanguinous output. Has been tolerating clear liquids without issue. Daily medical marijuana use at home for chronic pain - gummies/smoking. No alcohol use. Recently quit smoking cigarettes. Allergies Allergy/AdvReac Type Severity Reaction Status Date / Time metoprolol Allergy Intermediate RASH Verified 09/13/24 09:25 propoxyphene Allergy Intermediate ITCHY Verified 09/13/24 09:25 acetaminophen AdvReac Intermediate SICK TO Verified 09/13/24 09:25 STOMACH prednisone AdvReac Intermediate Chest Pain Verified 09/13/24 09:25 tramadol AdvReac Intermediate headache Verified 09/13/24 09:25 Home Medications Medication Instructions Recorded Confirmed Type gabapentin 600 mg tablet 1,200 mg PO TID 11/06/19 09/13/24 History Medical Marijuana 0 unit DIRECTED PRN Pain 11/09/19 09/13/24 History latanoprost 0.005 % eye drops 1 drp ophthalmic (eye) PM 09/24/21 09/13/24 History acetaminophen 500 mg tablet 1,500 mg PO QID 09/07/24 09/13/24 History fluticasone propionate 50 1 spray intranasal DAILY PRN 09/07/24 09/13/24 History mcg/actuation nasal allergies spray,suspension (Flonase Allergy Relief) oxycodone 5 mg tablet 10 mg PO QID PRN pain 09/07/24 09/13/24 History rosuvastatin 20 mg tablet 20 mg PO DAILY 09/07/24 09/13/24 History Patient History Medical History Lumbar disc herniation with radiculopathy Dyslipidemia Carpal tunnel syndrome of left wrist Back pain, chronic History of panic attacks when lying flat, asked to be elevated when he is waking up from surgery Incontinence "every now and then, due to back issues" Sleep apnea unable to tolerate cpap Seasonal allergies Sciatica Psoriasis History of anesthesia reaction Can be combative ..needs quiet calm environment Degenerative disc disease Glaucoma Hematoma (2019) hx- after neck surgery, neck drain was "plugged"- return to [place] Cervical radiculopathy slightly limited rom in all directions Torticollis Surgical History History of evacuation of hematoma (11/11/19) post cervical discetomy History of lumbar fusion (09/2021) decompression and fusion, l3 l4 History of carpal tunnel surgery of right wrist Hx of cervical discectomy (11/10/19) C6-C7 - Dr. Yeh History of arthroscopy of left shoulder (1991) History of meniscectomy of left knee (2014) Family History Other Diabetes Social History Smoking Status: Former smoker Tobacco Type: Cigarettes Cigarettes Per Day: 1/2 pack; Smoking End Date: quit august 12, 2024; Second Hand Exposure: No; Do You Dip or Chew Tobacco: No; Tobacco Cessation Education Requested by Patient: No Hx Alcohol Use: No Hx Substance Use: Yes Last Used Substance: Just Prior to Arrival Last Used Substance Other:: medical marijuana daily (Advised) Substance Use Type Other:: medical marijuana for pain control. daily use Preferred Language: [place] Communication Ability: Effective Flight Operation Coordinator Required: No Beliefs That Will Affect Care: None marital status: Current Living Situation: Spouse and Family Current Living Situation Comment: and 12 year old daughter Other Information That Helps Us Care for You: No Feels Safe at Home: Yes Safety Concerns: Feels Safe At This Time Assistive Devices: CPAP, Denture - Upper and Glasses Review of Systems Review of Systems: At least ten systems reviewed and negative, except as noted in the HPI. Physical Exam Physical Exam: General: WD/WN, NAD but appears uncomfortable, laying down in bed on R side, A&Ox4, at bedside HEENT: Normocephalic, atraumatic, oropharynx normal. Respiratory: Normal respiratory effort, lungs clear to auscultation bilaterally, on RA Cardiovascular: Regular rate, rhythm, normal peripheral pulses, no BLE edema Abdomen/GI: Normal bowel sounds, soft, nontender to palpation in all quadrants Extremities/MSK: No cyanosis or clubbing, LISETH drain x 1 draining erosanguineous output, surgical site dressing on back C/D/I Neurologic: No overt focal deficits, CN's II-XI not formally tested but appear grossly intact bilaterally Results & Data Results & Data Vital Signs (Past 12 Hours) Vital Signs Temp Pulse Pulse Resp BP BP Pulse Ox 09/13/24 17:20 36.5 C 66 16 113/67 95 09/13/24 16:51 36.3 C L 65 18 128/82 97 09/13/24 16:20 36.8 C 65 22 145/87 H 100 09/13/24 16:10 64 12 104/65 99 09/13/24 15:55 36.5 C 76 18 109/67 99 09/13/24 15:45 57 L 12 106/67 99 09/13/24 15:35 62 14 115/53 L 94 09/13/24 15:25 56 L 10 L 98/54 L 96 09/13/24 15:15 68 13 116/70 100 09/13/24 15:09 36.2 C L 89 10 L 142/101 H 95 09/13/24 09:44 36.7 C 60 20 116/83 98 O2 Del Method O2 Flow Rate 09/13/24 17:20 Room Air 09/13/24 16:51 Room Air 09/13/24 16:20 Nasal Cannula 2 09/13/24 16:10 Nasal Cannula 2 09/13/24 15:55 Nasal Cannula 2 09/13/24 15:45 Nasal Cannula 2 09/13/24 15:35 Nasal Cannula 2 09/13/24 15:25 Oxymask 4 09/13/24 15:15 Oxymask 4 09/13/24 15:09 Oxymask 4 09/13/24 09:44 Room Air Diagnostic Findings Lumbar Spine X-Ray 09/13/24 11:05 FL lumbar spine 2-3V CLINICAL HISTORY: L2-L3 DECOMPRESSION AND FUSION, L3-L4 HW REMOVAL COMPARISON STUDY: 05/03/2022 FLUOROSCOPY TIME: 9 seconds FLUOROSCOPY IMAGES: 3 EXPOSURE DOSE: 5 mGy FINDINGS: Fluoroscopy was provided for lumbar surgery. IMPRESSION: Intraoperative fluoroscopy. ACT 112: Negative or not required by law. Electronically signed by: Gabriel Fraser M.D. 09/13/2024 2:50 PM Medications Administered Acetaminophen (Acetaminophen 500 Mg Tab) 1,000 mg PO PREOP SEGUNDO Stop: 09/13/24 18:00 Last Admin: 09/13/24 16:33 Dose: Not Given Documented By: JEREMIAH Celecoxib (Celebrex 200 Mg Cap) 200 mg PO PREOP SEGUNDO Stop: 09/13/24 18:00 Last Admin: 09/13/24 10:06 Dose: 200 mg Documented By: JULIAN Gabapentin (Gabapentin 900 Mg Dose) 900 mg PO PREOP SEGUNDO Stop: 09/13/24 18:00 Last Admin: 09/13/24 10:00 Dose: Not Given Documented By: JULIAN Hydromorphone HCl (Hydromorphone Inj 1 Mg/Ml Syringe) 0.25 mg IV Q5M PRN PRN Reason: PACU Use Only-Pain Stop: 09/13/24 21:00 Last Admin: 09/13/24 15:38 Dose: 0.25 mg Documented By: BEV Hydromorphone HCl (Hydromorphone Inj 1 Mg/Ml Syringe) 1 mg IV Q3H PRN PRN Reason: SEVERE Pain (7,8,9,10) Stop: 09/27/24 16:23 Last Admin: 09/13/24 17:00 Dose: 1 mg Documented By: JOSE ANGEL Cefazolin Sodium (Ancef 2000mg) 2,000 mg in 15 mls @ 3.75 mls/min IV PREOP SEGUNDO; Protocol Stop: 09/13/24 18:00 Last Admin: 09/13/24 13:17 Dose: 3.75 mls/min Documented By: [id number] Lactated Ringer's (Lr) 1,000 mls @ 15 mls/hr IV .Q24H [facility] Stop: 09/14/24 05:59 Last Infusion: 09/13/24 13:14 Dose: Infused Documented By: Admin: 09/13/24 10:00 Dose: 15 mls/hr Documented By: JULIAN Lactated Ringer's (Lr) 1,000 mls @ 60 mls/hr IV .[id number] [facility] Stop: 09/13/24 22:39 Last Admin: 09/13/24 10:01 Dose: Not Given Documented By: JULIAN Discontinued Medications Bupivacaine HCl/Epinephrine Bitart (Bupivacaine/Epinephrine 0.25% 1:200,000 30 Ml Vial) Confirm Administered Dose 30 ml .ROUTE .STK-MED ONE Stop: 09/13/24 13:03 Last Admin: 09/13/24 13:51 Dose: 20 ml Documented By: GMBenedicto Cefazolin Sodium (Cefazolin 330 Mg/Ml 1 Gm Vial) Confirm Administered Dose 990 mg .ROUTE .STK-MED ONE Stop: 09/13/24 13:03 Last Admin: 09/13/24 13:51 Dose: 990 mg Documented By: JAKOB Fentanyl Citrate (Fentanyl Citrate Pf 100 Mcg/2 Ml Vial) 25 mcg IV Q5M PRN PRN Reason: PACU Use Only-Pain Stop: 09/13/24 21:00 Last Admin: 09/13/24 15:33 Dose: 25 mcg Documented By: Admin: 09/13/24 15:28 Dose: 25 mcg Documented By: Admin: 09/13/24 15:23 Dose: 25 mcg Documented By: Admin: 09/13/24 15:18 Dose: 25 mcg Documented By: BEV Miscellaneous ( Floseal Hemostatic Matrix 10ml) 20 ml TOP ONCE ONE Stop: 09/13/24 13:51 Last Admin: 09/13/24 14:33 Dose: 15 ml Documented By: GMB
[2024-09-13] MEDS: CYCLOBENZAPRINE HCL 10 MG TAB PO PRN (21:37)
[2024-09-13] MEDS: DOCUSATE SODIUM/SENNA 50/8.6MG TAB PO SCH (21:37)
[2024-09-13] MEDS: ONDANSETRON 4 MG OD TAB PO PRN (21:37)
[2024-09-13] MEDS: GABAPENTIN 600 MG TAB PO SCH (21:37)
[2024-09-13] MEDS: LATANOPROST 0.005% OP SOLN 2.5 ML BTL OP SCH (21:37)
[2024-09-14] MEDS: oxyCODONE HCL IR 5 MG TAB (IMMEDIATE RELEASE) PO PRN (00:01)
[2024-09-14] MEDS: LORazepam 0.5 MG TAB PO PRN (00:41)
[2024-09-14] MEDS: POLYETHYLENE (MIRALAX) 17 GM PACK PO SCH (05:58)
[2024-09-14 06:36] LABS: Basophils # (auto) 0.05 K/uL (0.00-0.20); Basophils % (auto) 0.6 %; Eosinophils # (auto) 0.14 K/uL (0.00-0.50); Eosinophils % (auto) 1.6 %; Hematocrit (blood only) 43.7 % (42.0-52.0); Immature Granulocytes # (auto) 0.03 K/uL (0.01-0.20); Immature Granulocytes % (auto) 0.3 %; Lymphocytes # (auto) 1.95 K/uL (1.20-3.40); Mean Corpuscular Hemoglobin 30.1 pg (25.0-34.0); Mean Corpuscular Hgb Conc 34.3 g/dL (32.0-36.0); Mean Corpuscular Volume 87.6 fL (80.0-100.0); Mean Platelet Volume 9.9 fL (9.4-12.4); Monocytes # (auto) 0.69 K/uL (0.11-0.59); Monocytes % (auto) 7.8 %; Neutrophils % (auto) 67.7 %; Platelet Count 144 K/uL (130-400); RDW Coefficient of Variation 13.4 % (11.5-14.5); RDW Standard Deviation 42.7 fL (36.4-46.3); Red Blood Count 4.99 M/uL (4.70-6.10); White Blood Count 8.86 K/ul (4.8-10.8)
[2024-09-14 07:05] LABS: BUN Creatinine Ratio 8.6 (10-20); Calcium 9.1 mg/dl (8.6-10.3); Creatinine Clr Calc Pharmacy 106.5 ml/min; Magnesium 1.8 mg/dl (1.7-2.4); Phosphorus 3.5 mg/dl (2.5-4.9); Potassium 4.2 mmol/L (3.5-5.1)
[2024-09-14] MEDS: KETOROLAC 30 MG/ML VIAL IV PRN (08:06)
[2024-09-14] MEDS ORDERED: ROSUVASTATIN CALCIUM 20 MG TAB PO SCH (09:00)
--- NOTE | 2024-09-14 10:36 | Orthopedic Progress Note ---
Date of Service September 14, 2024 Assessment & Plan (1) Lumbar disc herniation with radiculopathy: Plan: At this time I encouraged him to continue with physical therapy as tolerated. He does use medical marijuana on a regular basis. Have encouraged him to continue with his home regiment as this will help with his pain control. Admission and Anticipated Discharge Date Admission Date: September 13, 2024 Subjective Back pain is controlled. He is describing some meralgia paresthetica to the right anterior thigh. Otherwise he is up and ambulating. Physical Exam Physical Exam: Patient is out of bed. He is standing in good posture. Good strength testing. Results & Data Vital Signs (Past 12 Hours) Vital Signs Temp Pulse Resp BP BP Pulse Ox O2 Del Method 09/14/24 07:08 36.8 C 66 16 100/61 95 Room Air 09/14/24 03:03 36.7 C 65 18 112/70 93 Room Air 09/13/24 23:48 36.6 C 56 L 18 116/72 99 Room Air
[2024-09-14] MEDS: ACETAMINOPHEN 1,000 MG/100 ML VIAL IV PRN (11:04)
[2024-09-14 11:18] VITALS: RESP 18
--- NOTE | 2024-09-14 15:05 | Hospitalist Progress Note ---
Date of Service September 14, 2024 Assessment & Plan (1) Radicular pain of both lower extremities: (2) S/P spinal surgery: Plan: Patient is a 49-year-old male with past medical history significant for HLD, GERD, tobacco use disorder, anxiety, medical marijuana use, chronic pain due to injury on PRN oxycodone, musculoskeletal disorder of the neck and other problems listed below who is being seen in consultation for routine postoperative medical management after undergoing L2-L3 decompression and fusion and L3-L4 removal of hardware performed by Dr. Yeh earlier today. Lumbar spinal stenosis, spondylosis with radiculopathy --S/P lumbar decompression, fusion surgery by Dr. Yeh on 09/13/2024 Continue bowel regimen to prevent constipation Pain control as needed Wound care per primary team Continue PT OT (3) Dyslipidemia: Plan: Did not start rosuvastatin, recently changed from simvastatin Would like to hold off on taking rosuvastatin for now --> orders changed to reflect this Other chronic medical conditions: b/l glaucoma --> continue eyedrops DVT Px: As per primary team PCP: Blaze Lee PA-C Disposition: As per primary team Thank you for this consultation. We will follow the patient with you during their hospital stay. You [facility] via [employer]. Admission and Anticipated Discharge Date Admission Date: September 13, 2024 Subjective Patient is seen and examined at bedside States having back pain at surgical site Also reports right thigh numbness + Flatus, no bowel movement today Denies any chest pain, dyspnea, dizziness Review of Systems Review of Systems: All systems reviewed & are unremarkable except as noted in Subjective Physical Exam Physical Exam: Physical Exam: Vitals signs as noted above General Appearance:Overweight, no apparent distress Head: normocephalic, Atraumatic Eyes: normal inspection, EOMI Neck: supple, Trachea midline Respiratory/Chest: Normal breath sounds, CTA, No accessory muscle use Cardiovascular: S1, S2, No murmur Abdomen/GI:Soft, Non tender, Bowel sounds present Back: Surgical site in dressing, +drain Extremities/Musculoskeletal:normal inspection, no edema Neurologic/Psych:AAOX3, grossly no focal neurological deficits Skin: normal color, warm Results & Data Results & Data Vital Signs (Past 12 Hours) Vital Signs Temp Pulse Resp BP BP Pulse Ox O2 Del Method 09/14/24 11:17 37.2 C 73 18 134/80 99 Room Air 09/14/24 07:08 36.8 C 66 16 100/61 95 Room Air 09/14/24 03:03 36.7 C 65 18 112/70 93 Room Air Laboratory Results Short CBC 09/14/24 Range/Units 06:11 WBC 8.86 (4.8-10.8) K/ul Hgb 15.0 (14.0-18.0) g/dl Hct 43.7 (42.0-52.0) % Plt Count 144 (130-400) K/uL BMP 09/14/24 06:11 Sodium 140 Potassium 4.2 Chloride 102 Carbon Dioxide 31 BUN 9 Creatinine 1.05 Glucose 104 H Calcium 9.1
[2024-09-15 06:33] LABS: Hematocrit (blood only) 38.4 % (42.0-52.0); Hemoglobin 13.4 g/dl (14.0-18.0); Mean Corpuscular Hemoglobin 30.3 pg (25.0-34.0); Mean Corpuscular Hgb Conc 34.9 g/dL (32.0-36.0); Mean Corpuscular Volume 86.9 fL (80.0-100.0); Mean Platelet Volume 10.3 fL (9.4-12.4); Platelet Count 139 K/uL (130-400); RDW Coefficient of Variation 13.2 % (11.5-14.5); RDW Standard Deviation 41.2 fL (36.4-46.3); Red Blood Count 4.42 M/uL (4.70-6.10); White Blood Count 8.67 K/ul (4.8-10.8)
[2024-09-15 06:54] LABS: BUN Creatinine Ratio 9.4 (10-20); Calcium 8.8 mg/dl (8.6-10.3); Creatinine Clr Calc Pharmacy 116.5 ml/min; Potassium 3.7 mmol/L (3.5-5.1)
[2024-09-15 07:39] VITALS: PULSE 74; TEMP 98.4; O2SAT 95
--- NOTE | 2024-09-15 08:20 | Discharge Summary ---
Date of Service September 15, 2024 Admission HPI Per Admitting Provider This is a 49-year-old male that presents with significant continued back and leg pain after failing course of nonoperative care is here for surgical invention. Principal Diagnosis Lumbar disc herniation with radiculopathy Discharge Data Allergies Allergy/AdvReac Type Severity Reaction Status Date / Time metoprolol Allergy Intermediate RASH Verified 09/13/24 09:25 propoxyphene Allergy Intermediate ITCHY Verified 09/13/24 09:25 acetaminophen AdvReac Intermediate SICK TO Verified 09/13/24 09:25 STOMACH prednisone AdvReac Intermediate Chest Pain Verified 09/13/24 09:25 tramadol AdvReac Intermediate headache Verified 09/13/24 09:25 Consultations 09/13/24 16:24 Consult Hospitalist Routine Procedures Performed Operation Date: 09/13/24 11:05 Actual Procedures p L2-L3 Decompression and Fusion, L3-L4 Removal Hardware(Not Applicable) - Idris Yeh DO Ordered Studies 09/13/24 11:05 FL lumbar spine 2-3V Routine Hospital Course (1) Lumbar disc herniation with radiculopathy: Patient underwent lumbar decompression fusion tolerated this well was taken to orthopedic floor postoperative. Postop he progressed appropriately. Up and ambulating. Good strength testing. LISETH drain decreasing. Subsidy discharged home. Discharge orders and instructions on the chart for further review. Total Time Total Time Spent Total Time Spent (In Minutes): 20 minutes Discharge Plan Discharge Items Patient Disposition: Home - Self-Care Reason For Visit: Other Spondylosis with Radiculopathy Lumbar Region Discharge Diagnosis: Lumbar spondylosis with radiculopathy Activity: As commented below Non-emergency contact: Primary Care Provider Call non-emergency contact if: you have any medication questions Follow-up/Referrals: Blaze Lee [Primary Care Provider] - Diet: Regular Addtl Attending Provider Instructions: ACTIVITY RECOMMENDATIONS: SELF CARE INSTRUCTIONS AFTER THORACIC/LUMBAR FUSIONS 1. You may walk to your tolerance. It is good exercise for your legs and back. Expect some back and intermittent leg aches and pains. 2. You may perform "counter-top" level activities (make a sandwich, nereyda with a project, etc.). 3. No bending or lifting of more than 10 pounds or back twisting of any nature (roll like a log when turning in bed). 4. You may ride in a car for 20-30 minutes at a time. No driving until after your first visit with your doctor. 5. Frequent changes of position and restricting sitting to 30 minutes at a time will help limit the amount of back spasms and stiffness you may experience. 6. You may discontinue the use of ambulatory aids (cane, crutches, etc.) once your strength and confidence allow. 7. You may clinical immunologist the shower and let water strike your incision when you arrive home at least once daily. Do not take a tub bath, sit in a hot tub or go into a swimming pool until after your first recheck in the office. 8. You may resume previous diet. SPECIAL CARE INSTRUCTIONS: VERY IMPORTANT TO READ AND REVIEW A. Your surgical incision has been closed with a cosmetic suture under the skin that will dissolve in about 6 weeks. In 14 days, you can use a pair of clean scissors and cut the suture that is left outside of the skin at the ends of your incision. 1. The small skin tapes can be removed 7 days after surgery if they have not fallen off by that point. 2. You may keep the wound open to air as much as possible to promote healing after post-op day number 5 unless told otherwise by your doctor. 3. If you think the wound looks like it is becoming infected (redness or worsening drainage) and/or you are experiencing fever, chill or worsening back pain and muscle spasms, contact the office so that we may evaluate you as soon as possible. B. Complications are uncommon, but please contact us if you have any signs or symptoms of: 1. wound infection (fever higher than 102.5 degrees F, redness, separation of wound, drainage, or increasing pain from the incision) 2. blood clots in legs (pain, swelling, redness and warmth in legs) 3. urinary tract infection (fever higher than 102.5 degrees F, burning upon urination or increased frequency of urination) 4. nerve problems (inability to walk on your toes or heels, numbness, loss of bowel or bladder control) 5. any other symptoms that concern you C. Please call the office at if you have any concerns or questions about your operation or recovery. D. No smoking! Smoking drastically decreases the chance of a solid fusion. E. Do not take any anti-inflammatory medications (Indocin, Advil, Motrin, Aspirin, Naprosyn, etc.) as these may inhibit the chance of a solid fusion. Tylenol is okay to take for pain. MANAGING PAIN AFTER SPINAL SURGERY 1. Narcotic medication is intended for short-term use and will be provided for surgical pain. Surgical pain usually lasts for a period of 4-6 weeks. Narcotic medication includes Percocet, Vicodin, Darvocet, Tylenol #3 or Lortab. 2. Longer-term pain is more appropriately treated with non-narcotic medication such as Tylenol ES. 3. Muscle spasm is not appropriately treated with narcotics. Muscle relaxers such as Soma, Flexeril or Skelaxin can be used along with Tylenol ES. 4. Remember that we all live with some "aches and pains". This is not unusual or uncommon after an injury or as we get older. a. Back pain is expected and may include muscle spasms for 4 to 6 weeks after surgery. The pain should gradually improve. If the pain worsens for no apparent reason, please contact the office. b. Intermittent leg pain may also be experienced and should not be concerned about unless it worsens for no apparent reason. If so, please contact the office. 5. We will provide appropriate medication within the normal guidelines of their prescribed use. We will also be very cautious and aware of potential abuse and extended duration of patients' medication needs. a. Pain medications are for your comfort and to assist with sleep and rest so that the tissue can heal. They are not provided in order to return to normal activity and should not be used through the day. To do so or worsening pain at night can result from ongoing tissue damage and development of tolerance to the prescribed medicine. 6. Please allow 2-3 days to process refills. Prescriptions will not be mailed but must be picked up at the office. FOLLOW UP VISIT: Keep your scheduled follow-up appointment. Any questions, please call the office at . Pending Studies at Discharge: No Stand-Alone Forms: [employer], Smoking Cessation Medications and DC Order Prescriptions: New oxycodone 5 mg tablet 5 mg PO Q6H PRN (Reason: pain) Qty: 30 0RF Continued gabapentin 600 mg tablet 1,200 mg PO TID Medical Marijuana 0 unit DIRECTED PRN (Reason: Pain) Rx Instructions: MULTIPLE FORMS/ROUTES latanoprost 0.005 % Drops 1 drp OPHTHALMIC (EYE) PM acetaminophen 500 mg Tablet 1,500 mg PO QID rosuvastatin 20 mg Tablet 20 mg PO DAILY oxycodone 5 mg tablet 10 mg PO QID PRN (Reason: pain) fluticasone propionate [Flonase Allergy Relief] 50 mcg/actuation [place],Suspension 1 spray INTRANASAL DAILY PRN (Reason: allergies) Rx Instructions: administer into each nostril Discharge Orders: Discharge Order (Routine); Ordered 09/15/24 Ordered By: Idris Yeh Admission Data Admit Date/Time: 09/13/24 14:53 Attending Provider: Idris Yeh Admit Provider: Idris Yeh Primary Care Provider: Blaze Lee Other Providers: Negra Aguilar; Ed Kramer
[2024-09-15 10:31] VITALS: BP 100/61
--- NOTE | 2024-09-15 10:51 | Hospitalist Progress Note ---
Date of Service September 15, 2024 Assessment & Plan (1) Radicular pain of both lower extremities: (2) S/P spinal surgery: Plan: Patient is a 49-year-old male with past medical history significant for HLD, GERD, tobacco use disorder, anxiety, medical marijuana use, chronic pain due to injury on PRN oxycodone, musculoskeletal disorder of the neck and other problems listed below who is being seen in consultation for routine postoperative medical management after undergoing L2-L3 decompression and fusion and L3-L4 removal of hardware performed by Dr. Yeh earlier today. Lumbar spinal stenosis, spondylosis with radiculopathy --S/P lumbar decompression, fusion surgery by Dr. Yeh on 09/13/2024 Postoperative acute blood loss anemia--expected Continue bowel regimen to prevent constipation Pain control as needed Wound care per primary team Continue PT OT No indication for blood transfusion currently Monitor CBC Advised to follow-up with primary care physician in 1 week upon discharge (3) Dyslipidemia: Plan: Did not start rosuvastatin, recently changed from simvastatin Would like to hold off on taking rosuvastatin for now --> orders changed to reflect this Other chronic medical conditions: b/l glaucoma --> continue eyedrops DVT Px: As per primary team PCP: Blaze Lee PA-C Disposition: As per primary team Thank you for this consultation. We will follow the patient with you during their hospital stay. You can reach a [facility] via [employer]. Admission and Anticipated Discharge Date Admission Date: September 13, 2024 Subjective Patient is seen and examined at bedside Back pain is controlled Had bowel movement No new complaints today Eager to get discharged today Denies any chest pain, dyspnea, dizziness, nausea, vomiting, abdominal pain Review of Systems Review of Systems: All systems reviewed & are unremarkable except as noted in Subjective Physical Exam Physical Exam: Physical Exam: Vitals signs as noted above General Appearance:Overweight, no apparent distress Head: normocephalic, Atraumatic Eyes: normal inspection, EOMI Neck: supple, Trachea midline Respiratory/Chest: Normal breath sounds, CTA, No accessory muscle use Cardiovascular: S1, S2, No murmur Abdomen/GI:Soft, Non tender, Bowel sounds present Back: Surgical site in dressing, +drain Extremities/Musculoskeletal:normal inspection, no edema Neurologic/Psych:AAOX3, grossly no focal neurological deficits Skin: normal color, warm Results & Data Results & Data Vital Signs (Past 12 Hours) Vital Signs Temp Pulse Pulse Resp BP BP Pulse Ox 09/15/24 10:30 36.9 C 64 74 18 110/65 100/61 95 09/15/24 07:38 36.9 C 74 18 110/65 95 O2 Del Method 09/15/24 10:30 09/15/24 07:38 Room Air Laboratory Results Short CBC 09/15/24 Range/Units 05:55 WBC 8.67 (4.8-10.8) K/ul Hgb 13.4 L (14.0-18.0) g/dl Hct 38.4 L (42.0-52.0) % Plt Count 139 (130-400) K/uL BMP 09/15/24 05:55 Sodium 136 Potassium 3.7 Chloride 100 Carbon Dioxide 29 BUN 9 Creatinine 0.96 Glucose 122 H Calcium 8.8
== END 2024-09-15 13:41 | disposition home or self-care (01) | DRG 402 ==
LOC: ASU 09:21 → 3E 14:53